=== PATIENT | female | born 1950 | race Caucasian/White ===

== ENCOUNTER 2018-01-15 01:35 | Inpatient (IN) | payer MEDICARE ==
[~2018-01-15] VITALS: Ht 157.5 cm; Wt 90.9 kg
[~2018-01-15 01:35] MED LIST: DALIRESP500 MCG PO; DUONEB INH; GLUCOPHAGE500 MG PO; KLONOPIN0.5 MG PO; KLOR-CON M2020 MEQ PO; LASIX40 MG PO; LEVAQUIN750 MG PO; MEDROL DOSE PACK4 MG PO; SPIRIVA18 MCG INH; VENTOLIN HFA18 GM INH
[2018-01-15 02:56] LABS: BASOPHILS 0.3 % (0-2); EOSINOPHILS 2.8 % (0-7); HEMATOCRIT 36.6 % (36.0-48.0); IMMATURE GRANULOCYTES 0.7 % (0-5); LYMPHOCYTES 13.8 % (15-50); MCH 28.6 pg (26.0-34.0); MCHC 30.1 g/dL (31.0-37.0); MCV 95.3 fL (80.0-100.0); MEAN PLATELET VOLUME 9.3 fL (7.4-10.4); MONOCYTES 6.4 % (2-11); PLATELET COUNT 220 10x3/uL (130-400); RBC 3.84 10x6/uL (4.00-5.40); RDW 14.5 % (11.5-14.5); WBC 10.1 10x3/uL (4.8-10.8)
[2018-01-15 03:30] LABS: ALBUMIN 3.1 g/dL (3.4-5.0); ALKALINE PHOSPHATASE 113 U/L (46-116); ALT (SGPT) 26 U/L (10-68); BILIRUBIN - TOTAL 0.29 mg/dL (0.2-1.3); CHLORIDE - SERUM 99 mmol/L (98-107); CREATININE - SERUM 0.9 mg/dL (0.6-1.3); POTASSIUM - SERUM 3.7 mmol/L (3.5-5.1); PROTEIN - SERUM 7.9 g/dL (6.4-8.2); SODIUM 142 mmol/L (136-145); UREA NITROGEN 14 mg/dL (7-18); eGFR NON AFRICAN AMERICAN 66 mL/min (90-120)
[2018-01-15 03:45] LABS: CALC OSMOLALITY 291 mosm/kg (275-300); GLUCOSE 240 mg/dL (74-106)
[2018-01-15 03:47] LABS: CARBON DIOXIDE 43.8 mmol/L (21.0-32.0); TROPONIN-I < 0.017 ng/mL (0.000-0.060)
[2018-01-15 08:19] VITALS: BP 144/56
[2018-01-15] MEDS ORDERED: ADVAIR HFA [SP]12 GM INH (09:33)
[2018-01-15] MEDS ORDERED: GLUCOTROL ER2.5 MG PO (09:33)
[2018-01-15] MEDS ORDERED: SINGULAIR10 MG PO (09:34)
[2018-01-15] MEDS ORDERED: LEXAPRO10 MG PO (09:34)
[2018-01-15] MEDS ORDERED: ULTRAM50 MG PO (09:35)
[2018-01-15 11:52] VITALS: BP 141/62
[2018-01-15 15:39] VITALS: BP 145/78; Ht 157.5 cm; Wt 90.9 kg
[2018-01-15 15:53] VITALS: BP 125/59
[2018-01-15 16:52] LABS: CKMB 1.1 U/L (0.0-3.6); CREATINE KINASE 215 UL (21-215)
[2018-01-15 16:54] LABS: TROPONIN-I < 0.017 ng/mL (0.000-0.060)
[2018-01-15 20:34] VITALS: BP 140/55
[2018-01-15 22:20] LABS: CKMB 0.9 U/L (0.0-3.6); CREATINE KINASE 200 UL (21-215)
[2018-01-15 22:24] LABS: TROPONIN-I < 0.017 ng/mL (0.000-0.060)
[2018-01-16 01:31] VITALS: BP 146/63
[2018-01-16 05:24] LABS: BASOPHILS 0.2 % (0-2); EOSINOPHILS 0.1 % (0-7); HEMATOCRIT 32.3 % (36.0-48.0); HEMOGLOBIN 10.1 g/dL (12-16); IMMATURE GRANULOCYTES 2.6 % (0-5); LYMPHOCYTES 6.8 % (15-50); MCH 28.3 pg (26.0-34.0); MCHC 31.3 g/dL (31.0-37.0); MCV 90.5 fL (80.0-100.0); MEAN PLATELET VOLUME 11.1 fL (7.4-10.4); MONOCYTES 3.5 % (2-11); NEUTROPHILS 86.8 % (40-80); PLATELET COUNT 160 10x3/uL (130-400); RBC 3.57 10x6/uL (4.00-5.40); RDW 13.9 % (11.5-14.5); WBC 9.6 10x3/uL (4.8-10.8)
[2018-01-16 05:43] VITALS: BP 148/71
[2018-01-16 06:00] LABS: ALKALINE PHOSPHATASE 100 U/L (46-116); ALT (SGPT) 30 U/L (10-68); BILIRUBIN - TOTAL 0.31 mg/dL (0.2-1.3); CALC OSMOLALITY 298 mosm/kg (275-300); CALCIUM 9.5 mg/dL (8.5-10.1); CARBON DIOXIDE 35.7 mmol/L (21.0-32.0); CHLORIDE - SERUM 102 mmol/L (98-107); CKMB 0.5 U/L (0.0-3.6); CREATINE KINASE 204 UL (21-215); GLUCOSE 207 mg/dL (74-106); PROTEIN - SERUM 7.1 g/dL (6.4-8.2); SODIUM 147 mmol/L (136-145); UREA NITROGEN 16 mg/dL (7-18)
[2018-01-16 06:02] LABS: CREATININE - SERUM 0.6 mg/dL (0.6-1.3); POTASSIUM - SERUM 5.3 mmol/L (3.5-5.1); TROPONIN-I < 0.017 ng/mL (0.000-0.060); eGFR NON AFRICAN AMERICAN > 90 mL/min (90-120)
[2018-01-16 10:02] VITALS: BP 157/64
[2018-01-16 16:17] VITALS: BP 162/65
[2018-01-16 22:00] VITALS: BP 161/77
[2018-01-17 02:06] VITALS: BP 122/66
[2018-01-17 06:01] VITALS: BP 152/81
[2018-01-17 06:52] LABS: BASOPHILS 0.1 % (0-2); EOSINOPHILS 0.1 % (0-7); HEMATOCRIT 35.4 % (36.0-48.0); HEMOGLOBIN 10.6 g/dL (12-16); IMMATURE GRANULOCYTES 1.7 % (0-5); LYMPHOCYTES 6.4 % (15-50); MCH 27.9 pg (26.0-34.0); MCHC 29.9 g/dL (31.0-37.0); MCV 93.2 fL (80.0-100.0); MEAN PLATELET VOLUME 9.5 fL (7.4-10.4); MONOCYTES 3.7 % (2-11); PLATELET COUNT 260 10x3/uL (130-400); RDW 14.2 % (11.5-14.5); WBC 13.6 10x3/uL (4.8-10.8)
[2018-01-17 07:14] LABS: ALBUMIN 3.1 g/dL (3.4-5.0); ALKALINE PHOSPHATASE 95 U/L (46-116); ALT (SGPT) 23 U/L (10-68); BILIRUBIN - TOTAL 0.21 mg/dL (0.2-1.3); CALC OSMOLALITY 293 mosm/kg (275-300); CALCIUM 9.3 mg/dL (8.5-10.1); CARBON DIOXIDE 38.1 mmol/L (21.0-32.0); CHLORIDE - SERUM 100 mmol/L (98-107); GLUCOSE 220 mg/dL (74-106); PROTEIN - SERUM 7.5 g/dL (6.4-8.2); SODIUM 143 mmol/L (136-145); UREA NITROGEN 17 mg/dL (7-18)
[2018-01-17 07:24] LABS: CREATININE - SERUM 0.8 mg/dL (0.6-1.3); POTASSIUM - SERUM 3.6 mmol/L (3.5-5.1); eGFR NON AFRICAN AMERICAN 75 mL/min (90-120)
[2018-01-17 08:53] VITALS: BP 171/57
[2018-01-17] MEDS ORDERED: LEVAQUIN750 MG PO (10:43)
[2018-01-17 11:45] VITALS: BP 167/67
== END 2018-01-17 13:13 | disposition home or self-care (01) | DRG 193 ==
LOC: D.ER 01:35 → D.EDHOLD 04:05 → D.MS 04:05 → D.M2 04:05 → D.MS 05:39 → D.M2 09:55
PROVIDERS: Family Medicine
DX: J18.9 Pneumonia, unspecified organism (principal); J96.21 Acute and chronic respiratory failure with hypoxia; J44.0 Chronic obstructive pulmonary disease with (acute) lower respiratory infection; J44.1 Chronic obstructive pulmonary disease with (acute) exacerbation; J98.11 Atelectasis; E11.65 Type 2 diabetes mellitus with hyperglycemia; Z99.81 Dependence on supplemental oxygen; Z87.891 Personal history of nicotine dependence

== ENCOUNTER 2019-04-10 11:26 | Inpatient (IN) | payer MEDICARE, MEDICAID ==
[~2019-04-10] VITALS: Ht 157.5 cm; Wt 71.8 kg
[2019-04-10] VITALS (41 sets, daily range): BP systolic 70–147; BP diastolic 30–66; BMI 37.6
[~2019-04-10 11:26] MED LIST changes: +ADVAIR HFA [SP]12 GM INH; +GLUCOTROL ER2.5 MG PO; +LEXAPRO10 MG PO; +SINGULAIR10 MG PO; +ULTRAM50 MG PO
[2019-04-10 12:33] LABS: BASOPHILS 0.1 % (0-2); EOSINOPHILS 0.5 % (0-7); HEMATOCRIT 35.9 % (36.0-48.0); HEMOGLOBIN 10.7 g/dL (12-16); IMMATURE GRANULOCYTES 0.4 % (0-5); LYMPHOCYTES 6.3 % (15-50); MCH 28.3 pg (26.0-34.0); MCHC 29.8 g/dL (31.0-37.0); MEAN PLATELET VOLUME 10.2 fL (7.4-10.4); MONOCYTES 3.8 % (2-11); NEUTROPHILS 88.9 % (40-80); PLATELET COUNT 221 10x3/uL (130-400); RBC 3.78 10x6/uL (4.00-5.40); RDW 14.3 % (11.5-14.5); WBC 13.5 10x3/uL (4.8-10.8)
[2019-04-10 12:47] LABS: ALKALINE PHOSPHATASE 102 U/L (46-116); ALT (SGPT) 19 U/L (10-68); BILIRUBIN - TOTAL 0.68 mg/dL (0.2-1.3); CHLORIDE - SERUM 94 mmol/L (98-107); CREATININE - SERUM 0.8 mg/dL (0.6-1.3); POTASSIUM - SERUM 4.1 mmol/L (3.5-5.1); PROTEIN - SERUM 7.8 g/dL (6.4-8.2); SODIUM 140 mmol/L (136-145); UREA NITROGEN 14 mg/dL (7-18); eGFR NON AFRICAN AMERICAN 75 mL/min (90-120)
[2019-04-10 12:57] LABS: APTT 30.8 SECONDS (22.8-39.4); INR 1.12 (0.85-1.17); PROTIME 13.9 SECONDS (11.6-15.0)
[2019-04-10 13:03] LABS: CKMB 0.4 U/L (0.0-3.6); CREATINE KINASE 38 UL (21-215); MAGNESIUM - SERUM 1.8 mg/dL (1.8-2.4)
[2019-04-10 13:04] LABS: CALC OSMOLALITY 282 mosm/kg (275-300); GLUCOSE 148 mg/dL (74-106)
[2019-04-10 13:11] LABS: TROPONIN-I 0.073 ng/mL (0.000-0.060)
[2019-04-10 13:12] LABS: CARBON DIOXIDE 45.3 mmol/L (21.0-32.0)
[2019-04-10 14:25] LABS: T4 THYROXIN - FREE 1.06 ng/dL (0.76-1.46); T4 THYROXINE 8.8 ug/dL (4.7-13.3); THYROID STIMULATING HORMONE 1.27 uIU/mL (0.36-3.74)
[2019-04-10 15:23] LABS: CKMB 0.3 U/L (0.0-3.6); CREATINE KINASE 30 UL (21-215)
[2019-04-10 15:24] LABS: TROPONIN-I 0.111 ng/mL (0.000-0.060)
--- NOTE | 2019-04-10 15:33 | NUR ---
1500 PT RECIEVED FROM ER LETHARGIC, ABLE TO ANSWER NAME BUT NO OTHER ORIENTATION QUESTIONS, PT BEGINS SNORING WHILE ANSWERING QUESTIONS AND IS UNABLE TO STAY AWAKE, 5L O2, L AC PIV WITH CARDIZEM 10ML//HR, REDNESS TO BUTTOCK AND PERIAREA, BRIEF REMOVED AND PERICARE DONE, DR MARCELINO NOTIFIED OF ARRIVAL AND LEON INSERTEDX1 ATTEMPT VIA STERILE TECHNIQUE, ORDERRS FOR UA C&S, UDS, AWARE THAT PT IS TOO LETHARGIC TO SAFELY SWALLOW MEDS, PTS BED ALARM ON, CALL LIGHT WITHIN REACH, HR 80S FLUTTER, ALARMS SET ON MONITOR
--- NOTE | 2019-04-10 15:37 | NUR ---
UNABLE TO DO MED REQ AND SUICIDE SCREENING DUE TO LETHARGY
[2019-04-10 15:39] LABS: % SATURATION 8 % (15-55); IRON 25 ug/dl (35-150); TOTAL IRON BIND CAPACITY 301 ug/dl (260-445); UNSAT IRON BIND CAPACITY 276 ug/dl (150-375)
[2019-04-10 15:47] LABS: APPEARANCE CLEAR (CLEAR); BILIRUBIN NEGATIVE (NEGATIVE); COLOR YELLOW (YELLOW); GLUCOSE NEGATIVE (NEGATIVE); KETONE NEGATIVE (NEGATIVE); NITRITE NEGATIVE (NEGATIVE); PROTEIN NEGATIVE (NEGATIVE); SPECIFIC GRAVITY 1.015 (1.005-1.020); UROBILINOGEN NORMAL (NORMAL)
[2019-04-10 15:53] LABS: UDS - AMPHET NEGATIVE QUAL (NEGATIVE); UDS - BARB NEGATIVE QUAL (NEGATIVE); UDS - BENZO NEGATIVE QUAL (NEGATIVE); UDS - COCAINE NEGATIVE QUAL (NEGATIVE); UDS - OPIATE NEGATIVE QUAL (NEGATIVE); UDS - PCP NEGATIVE QUAL (NEGATIVE); UDS - THC NEGATIVE QUAL (NEGATIVE)
--- NOTE | 2019-04-10 17:28 | NUR ---
[address] ESCALERA WHO STATED PT IS USUALLY ALERT AND ORIENTED
--- NOTE | 2019-04-10 17:28 | NUR ---
1699 DR MICHELE HERE STATED THAT WHEN HE SPOKE WITH PT IN ER SHE WAS ORIENTED, PT CONTINUES TO BE LETHARGIC BUT IS ABLE TO FOLLOW COMMANDS WHEN ASKED MULTIPLE TIMES, HAND WASTE BALER AND FOOT MOVEMENT EQUAL BILATERALLY
--- NOTE | 2019-04-10 19:00 | NUR ---
BEDSIDE REPORT AND SHIFT ASSESSMENT COMPLETE. PT NON VERBAL, AWAKENS TO STERNAL RUB. WILL FOLLOW COMMANDS ONCE AWAKE. O2 SAT 98 ON 5L NC. WILL CONTINUE TO MONITOR.
--- NOTE | 2019-04-10 20:25 | NUR ---
SUSAN DELUNA MOBILE HOMES REPAIRER AT BEDSIDE. UPDATE GIVEN. STAT ABG ORDER, RESPIRATORY NOTIFIED.
--- NOTE | 2019-04-10 20:45 | NUR ---
DAUGHTER, LALI, AT BEDSIDE. SHE CLAIMS THE PT HAS NO LIVING WILL OR POA. PT LIVES WITH HER DAUGHTER AND HER EX , THEY ARE HER EMERGENCY CONTACTS. LALI STATES PT IS DNR.
--- NOTE | 2019-04-10 21:15 | NUR ---
DR COBIAN CONSULTED, NEW ORDERS RECEIVED. WILL CONTINUE TO MONITOR.
[2019-04-10 21:52] LABS: CKMB 0.5 U/L (0.0-3.6); CREATINE KINASE 30 UL (21-215)
[2019-04-10 21:57] LABS: TROPONIN-I 0.172 ng/mL (0.000-0.060)
--- NOTE | 2019-04-10 22:30 | NUR ---
B/P 74/37, MAP OF 50. SUSAN DELUNA APN NOTIFIED. ORDERS TO GIVE 500 ML NS BOLUS AND TO LEAVE CARDIZEM DRIP ON.
--- NOTE | 2019-04-10 23:15 | NUR ---
CL AMMONIA LEVEL 88. SUSAN DELUNA APN NOTIFIED.
--- NOTE | 2019-04-10 23:50 | NUR ---
HAND II BLOCKER CALLED FOR MED OVERRIDE.
[2019-04-11] VITALS (94 sets, daily range): BP systolic 74–129; BP diastolic 32–74
--- NOTE | 2019-04-11 01:00 | NUR ---
PT MORE ALERT AND RESPONSIVE THAN EARLIER. WAS ABLE TO TAKE A SIP OF WATER AND DRINK LACTULOSE WITHOUT DIFFICULTIES.
--- NOTE | 2019-04-11 03:00 | NUR ---
REASSESSMENT COMPLETE. PT SLEEPING, EASY TO AROUSE. WILL CONTINUE TO MONITOR.
[2019-04-11 04:05] LABS: BASOPHILS 0.1 % (0-2); EOSINOPHILS 0 % (0-7); HEMATOCRIT 35.2 % (36.0-48.0); HEMOGLOBIN 10.2 g/dL (12-16); IMMATURE GRANULOCYTES 0.6 % (0-5); LYMPHOCYTES 3.1 % (15-50); MCH 27.8 pg (26.0-34.0); MCV 95.9 fL (80.0-100.0); MEAN PLATELET VOLUME 10.4 fL (7.4-10.4); MONOCYTES 2.2 % (2-11); PLATELET COUNT 199 10x3/uL (130-400); RBC 3.67 10x6/uL (4.00-5.40); RDW 14.8 % (11.5-14.5); WBC 14.8 10x3/uL (4.8-10.8)
[2019-04-11 04:22] LABS: CALCIUM 8.7 mg/dL (8.5-10.1)
[2019-04-11 04:25] LABS: ANION GAP 5.2 mmol/L (8-16); CREATININE - SERUM 1.4 mg/dL (0.6-1.3)
[2019-04-11 04:26] LABS: CARBON DIOXIDE 41.8 mmol/L (21.0-32.0)
--- NOTE | 2019-04-11 05:00 | NUR ---
CHG BATH AND LINEN CHANGE COMPLETE.
--- NOTE | 2019-04-11 11:10 | EC ---
PATIENT:DELLA BRISENO DATE OF SERVICE: 04/10/19 SEX: F MEDICAL RECORD: [id number] DATE OF : [birth year] LOCATION:[place] [address] AGE OF PATIENT: 68 ADMISSION DATE: 04/10/19 REFERRING PHYSICIAN: INTERPRETING PHYSICIAN: MÓNICA THRASHER MD ECHOCARDIOGRAM REPORT ECHO CHARGES 4 ECHO COMPLETE Date: 04/10/19 CLINICAL DIAGNOSIS: PALPITATIONS, CP ECHOCARDIOGRAPHIC MEASUREMENTS (adult normal given) AC root (d.<3.7cm) cm LV Septum d (<1.2 cm> 0.7 cm Valve Excursion cm LV Septum (systole) 0.8 cm Left Atria (s.<4.0cm> 3.8 cm LVPW d(<1.2cm) 0.7 cm RV (d.<2.3cm) 3.0 cm LVPW (sytole) 1.1 cm LV diastole(<5.6CM) 3.8 cm MV E-F(>70mm/sec) cm LV systole 2.8 cm LVOT Diameter 1.7 cm MV exc.(>10mm) cm Est.ejection fraction (50-75%) % DOPPLER: LVIT cm/sec A cm/sec E 102 cm/sec LA cm/sec RVSP 41.8 mmHg LVOT 138 cm/sec AOP1/2T m/s Asc. Ao 149 cm/sec RVOT cm/sec RA cm/sec PA cm/sec AV Gradient Peak 8.9 mmHg AV Mean 4.8 mmHg AV Area 2.9 cm MV Gradient Peak 7.5 mmHg MV Mean 4.3 mmHg MV Area cm COMMENTS: Body Designer: Patricia [facility] Riveting Machine Operator Automatic: 1 Dr. Thrasher TAPE# PACS Pericardial Effusion N DATE OF SERVICE: FINDINGS: 1. Left ventricular chamber size is within normal limits. Left ventricular systolic function is normal. Overall ejection fraction estimated at 55%. 2. Left atrium, right atrium, and right ventricular chamber sizes are within normal limits. 3. Valvular structures have normal structure and motion. 4. Doppler interrogation reveals trace tricuspid regurgitation, no other valvular insufficiency or stenosis. Pulmonary systolic pressure is estimated 41 ECHOCARDIOGRAM REPORT [id number] DELLA BRISENO mmHg. 5. No evidence of pericardial effusion or left ventricular thrombus. TRANSINT:[id number] Voice Confirmation ID: [id number] DOCUMENT ID: [id number] MÓNICA THRASHER MD at 1110 CC: [id number] DICTATION DATE: 04/10/19 1635 SHOE TREER: 04/10/19 2100 ADM IN [place] [id number] [place] [id number]
--- NOTE | 2019-04-11 11:10 | CN ---
PATIENT NAME:DELLA BRISENO MEDICAL RECORD: [id number] : 48 LOCATION:[facility] ADMIT DATE: 04/10/19 ACCOUNT: [id number] CONSULTING PHYSICIAN: MÓNICA MICHELE MD REFERRING PHYSICIAN: AC MARCELINO MD DATE OF CONSULTATION: 04/10/2019 DIAGNOSES: 1. Palpitations. 2. Chest pain. 3. Shortness of breath, dyspnea on exertion. 4. Chronic obstructive pulmonary disease. 5. Bronchitis. HISTORY OF PRESENT ILLNESS: Mrs. Briseno has no cardiac history. She complained of sudden onset of palpitations and tachycardia, was found to be in atrial flutter with heart rates in the 170 to 180 range. She was initially given adenosine with no resolve of the dysrhythmia. She was given a Cardizem bolus, which dropped her heart rate into the 80s and 90s and made it apparent that this was atrial flutter. She did not have chest pain with the episode today. She has been having episodes of chest pain for approximately a month. These chest pains are compatible with angina. She has no history of ischemic heart disease and has not undergone workup for this. PHYSICAL EXAMINATION: CONSTITUTIONAL/GENERAL APPEARANCE: Well nourished, well developed, appears stated age. EYES: Lids and conjunctivae noninjected. No discharge. No pallor. ENT: Lips within normal limit. No cyanosis. No pallor. NECK: Carotid arteries, bilateral normal upstroke. No bruits. No thrills. No jugular venous pressure or distention. CERVICAL LYMPH NODES: Nontender. Nonenlarged. THYROID: Not enlarged. No nodules. CARDIOVASCULAR: Precordial exam, nondisplaced. No heaves or pericardial thrills. Rate and rhythm, regular. Heart sounds, normal S1, normal S2. No S3, no gallop, no rub. Systolic murmur, not heard. Diastolic murmur, not heard. RESPIRATORY: Respiratory effort, unlabored. Normal curvature. No thoracic deformity. No chest wall tenderness. Percussion, resonant. Auscultation, clear. No wheezes, no rales, no rhonchi. ABDOMEN: Soft, nondistended, nontender. No abdominal pain, no vomiting and normal appetite. MUSCULOSKELETAL: No joint tenderness, normal gait, normal tone. SKIN: Warm and dry. OVERALL IMPRESSION: New-onset atrial flutter, on Cardizem drip at this time. We will start her on Rythmol 300 mg b.i.d. Hopefully, this will convert her to sinus rhythm. We will do a chest pain workup based on troponins and EKG changes and get an echocardiogram. TRANSINT:[id number] Voice Confirmation ID: [id number] DOCUMENT ID: [id number] CONSULT REPORT [id number] DELLA BRISENO, MÓNICA POE at 1110 CC: [id number] DICTATION DATE: 04/10/19 1221 CASHIERS BUSSERS FOOD RUNNERS: 04/10/19 1236 ADM IN [place] [id number] [place] [id number]
--- NOTE | 2019-04-11 12:30 | NUR ---
0700 IN BED WEARING BPAP AT 60% O2 PHYSICAL TOUCH TO AROUSE FOLLOWS COMMANDS WEAKNESS NOTED DOES NOT SPEAK CARDIZEM INFUSING AT 10MG TO LEFT AC SITE SATISFACTORY PLACED SCDS ON GRICELDA. ASSESSMENT COMPLETE LUNGS CTA DIMINSHED BIBASULAR
--- NOTE | 2019-04-11 12:37 | NUR ---
0900 FAMILY MEMBERS AT BEDSIDE UPDATE PROVIDED PATIENT SPEEKING COHERRENTLY DNR PAPERS SIGNED BY DR COBIAN AND PLACED ON CHART
--- NOTE | 2019-04-11 12:40 | NUR ---
1100 STOPPED CARDIZEM INFUSION PER DR MICHELE ORDERS HELD LASIX, K+, CLONAZEPAM INSTRUCTED BY RYNE
--- NOTE | 2019-04-11 13:02 | NUR ---
1100 DR MANGO LUIS DRAWN
--- NOTE | 2019-04-11 13:02 | NUR ---
1230 RT PLACED ON 6L/NC INSTRUCTED BY DR COBIAN
--- NOTE | 2019-04-11 13:15 | NUR ---
1313 PLACED BACK ON BPAP AT 60% O2
--- NOTE | 2019-04-11 16:20 | NUR ---
1331 PATIENT HAD PULLED BP CUFF
--- NOTE | 2019-04-11 16:21 | NUR ---
1400 REPLACED BP CUFF NOTIFIED DR MICHELE OF HYPOTENSION ORDER FOR DOPAMINE
--- NOTE | 2019-04-11 16:22 | NUR ---
1402 DOPAMINE STARTED AT 2MCG/KG/MIN INCREASED BY 1 MCK EVERY 15 MIN MAX OF 5MCG/KG/MIN
--- NOTE | 2019-04-11 16:24 | NUR ---
1330 HEART RATE 140 AFLUTTER STOPPED DOPAMINE CALLED DR MICHELE INITIATED 500ML NS BOLUS NEW ORDER TO LEVAPHED TITRATE ABDOMINAL ULTRA SOUND COMPLETE
--- NOTE | 2019-04-11 16:47 | NUR ---
1650 BP 92/39 STARTED LEVOPHED AT 5MCG/MIN
--- NOTE | 2019-04-11 18:12 | NUR ---
1800 CONT TO TITRATE AND DOCUMENT LEVOPHED INFUSION
--- NOTE | 2019-04-11 19:00 | NUR ---
BEDSIDE REPORT AND SHIFT ASSESSMENT COMPLETE. O2 SAT 96 ON BIPAP 60% PT ALERT AND ORIENTED, REQUESTING SOMETHING TO EAT. VSS, NO SIGNS OF ACUTE DISTRESS NOTED. WILL CONTINUE TO MONITOR.
--- NOTE | 2019-04-11 21:00 | NUR ---
SPOKE WITH SUSAN DELUNA APN. HE OK'D GIVING PT MEDS PER MAR. B/P LOW, WILL TITRATE LEVOPHED PER ORDERS. PT TOLERATED MEDS. WILL CONTINUE TO MONITOR.
--- NOTE | 2019-04-11 23:00 | NUR ---
REASSESSMENT COMPLETE. PT GAVE ME DENTURES, I PUT THEM IN A CUP AND THEY ARE ON THE COUNTER IN HER ROOM. WILL CONTINUE TO MONITOR.
[2019-04-12] VITALS (61 sets, daily range): BP systolic 78–139; BP diastolic 34–78; Ht 157.5 cm; Wt 71.8 kg
--- NOTE | 2019-04-12 01:00 | NUR ---
PT SLEEPING. LEVOPHED TITRATED PER ORDERS. VSS, NO SIGNS OF ACUTE DISTRESS NOTED. WILL CONTINUE TO MONITOR.
--- NOTE | 2019-04-12 03:00 | NUR ---
REASSESSMENT COMPLETE. PT RESTING QUIETLY, DENIES NEEDS AT THIS TIME. WILL CONTINUE TO MONITOR.
--- NOTE | 2019-04-12 03:15 | NUR ---
PT CONVERTED TO NSR, RATE OF 49.
[2019-04-12 04:21] LABS: BASOPHILS 0 % (0-2); EOSINOPHILS 0 % (0-7); HEMATOCRIT 32.3 % (36.0-48.0); HEMOGLOBIN 9.8 g/dL (12-16); IMMATURE GRANULOCYTES 0.5 % (0-5); LYMPHOCYTES 5.4 % (15-50); MCH 27.9 pg (26.0-34.0); MCHC 30.3 g/dL (31.0-37.0); MEAN PLATELET VOLUME 10.2 fL (7.4-10.4); MONOCYTES 5.1 % (2-11); RBC 3.51 10x6/uL (4.00-5.40); RDW 14.3 % (11.5-14.5); WBC 15.4 10x3/uL (4.8-10.8)
[2019-04-12 04:29] LABS: PLATELET COUNT 370 10x3/uL (130-400)
[2019-04-12 04:49] LABS: ALBUMIN 2.6 g/dL (3.4-5.0); ANION GAP 9.5 mmol/L (8-16); BILIRUBIN - TOTAL 0.59 mg/dL (0.2-1.3); CARBON DIOXIDE 36.3 mmol/L (21.0-32.0); MAGNESIUM - SERUM 1.8 mg/dL (1.8-2.4); PHOSPHOROUS 3.7 mg/dL (2.5-4.9); POTASSIUM - SERUM 4.8 mmol/L (3.5-5.1); PROTEIN - SERUM 6.8 g/dL (6.4-8.2)
[2019-04-12 04:51] LABS: CREATININE - SERUM 1.8 mg/dL (0.6-1.3)
--- NOTE | 2019-04-12 05:00 | NUR ---
CHG BATH AND LINEN CHANGE COMPLETE. VSS, NO SIGNS OF ACUTE DISTRESS NOTED. PT DENIES NEEDS AT THIS TIME.
--- NOTE | 2019-04-12 07:00 | NUR ---
REC'D REPORT AND RESUMED CARE, SLEEPING WITH BIPAP ON, AROUSED TO VERBAL STIMULI, VSS, ORIENTED X4, ASSESSMENT COMPLETED PER FLOWSHEET, FOLLOWS DIRECTIONS, REPOSITIONED UP AND TO BACK WITH HEELS FLOATED, CALL LIGHT IN REACH, NO NEEDS AT THIS TIME
--- NOTE | 2019-04-12 08:30 | NUR ---
BIPAP OFF, MORNING MEDS INTITIATED, TOLERATED WITHOUT DIFFICULTY, O2 VIA HUMIDIFIED O2 AT 6L, SAT 94%
--- NOTE | 2019-04-12 11:18 | MORECARE ---
CASE MANAGEMENT DISCHARGE SUMMARY PATIENT: DELLA BRISENO UNIT: [id number] ADM DATE: 04/10/19 AGE: 68 : 49 SEX: F ROOM/BED: [facility] AUTHOR: ZARIA WHITTEN PHYSICIAN: REFERRING PHYSICIAN: AC MARCELINO MD DATE OF SERVICE: 04/12/19 Discharge Plan Patient Name: DELLA BRISENO Facility: [facility]:[place] : 1950 Planned Disposition: Home Anticipated Discharge Date: Discharge Date: Expected LOS: Initial Reviewer: [email or web address] Initial Review Date: 04/12/2019 Generated: 04/12/19 12:17 pm Comments DCP- Discharge Planning Updated by [email or web address]: Nora Berrios on 04/11/19 5:[address] CM wasn't able to speak to patient regarding discharge planning d/t her having to wear BiPAP continuously. No family available. CM will continue to follow and assist as needed with discharge planning / needs. Patient Name: DELLA BRISENO Page [phone] at 1118 All edits/amendments must be made on the electronic document DICTATION DATE: 04/12/191116 CLINICAL PSYCHIATRIST: MARCOS 04/12/191116 RPT#: [id number] DC DATE: STATUS: ADM IN [facility] [address] [place] [address] END OF REPORT
--- NOTE | 2019-04-12 11:25 | MORECARE ---
CASE MANAGEMENT DISCHARGE SUMMARY PATIENT: DELLA BRISENO UNIT: [id number] ADM DATE: 04/10/19 AGE: 68 : 49 SEX: F ROOM[facility]BED: [facility] AUTHOR: ZARIA WHITTEN PHYSICIAN: REFERRING PHYSICIAN: AC MARCELINO MD DATE OF SERVICE: 04/12/19 Discharge Plan Patient Name: DELLA BRISENO Facility: [facility]:[place] : 1950 Planned Disposition: Home Anticipated Discharge Date: Discharge Date: Expected LOS: Initial Reviewer: [email or web address] Initial Review Date: 04/12/2019 Generated: 04/12/19 12:25 pm Comments DCP- Discharge Planning Updated by [email or web address]: Nora Berrios on 04/11/19 5:[address] CM wasn't able to speak to patient regarding discharge planning d/t her having to wear BiPAP continuously. No family available. CM will continue to follow and assist as needed with discharge planning / needs. DCPIA - Discharge Planning Initial Assessment Updated by [email or web address]: Nora Berrios on 04/12/19 11:20 am * Is the patient Alert and Oriented? Yes * How many steps to enter\exit or inside your home? * PCP CECILIA RICO HAS BEEN SEEING HOUSE CALLS FOR THE LAST SEVERAL YEARS NOT GOING TO CLINIC * [facility] [address] * Preadmission Environment Home with Family * ADLs Total Dependent * Other Equipment HOME / PORTABLE 02, NEBULIZER, 02 MONITOR, GLUCOMETER, HOSPITAL BED PENDING * List name and contact numbers for known caregivers / representatives who currently or will assist patient after discharge: LAIL BRISENO - DAUGHTER- [phone] * Verbal permission to speak to the caregivers and representatives has been obtained from the patient. Yes * Please name any agencies selected above. HOUSE CALLS, [employer] [facility] * Additional services required to return to the preadmission environment? No * Can the patient safely return to the preadmission environment? Yes * Has this patient been hospitalized within the prior 30 days at any hospital? No Last DP export: 04/12/19 10:18 a Patient Name: DELLA BRISENO Page 61068 at 1125 All edits/amendments must be made on the electronic document DICTATION DATE: 04/12/191124 FIELD AUTO APPRAISER: MARCOS 04/12/19 112 RPT#: [id number] DC DATE: STATUS: ADM IN [facility] [address] [place] [address] END OF REPORT
--- NOTE | 2019-04-12 11:40 | NUR ---
CALLED TO ROOM, BEDPAN PLACED PER REQUEST, FSBS, 210 8 UNITS REG INS GIVEN, DR MARCELINO HERE FOR EVAL
--- NOTE | 2019-04-12 11:57 | MORECARE ---
CASE MANAGEMENT DISCHARGE SUMMARY PATIENT: DELLA BRISENO UNIT: [id number] ADM DATE: 04/10/19 AGE: 68 : 49 SEX: F ROOM/BED: D.01 AUTHOR: ZARIA WHITTEN PHYSICIAN: REFERRING PHYSICIAN: AC MARCELINO MD DATE OF SERVICE: 04/12/19 Discharge Plan Patient Name: DELLA BRISENO Facility: [facility]:[place] : 1950 Planned Disposition: Home Anticipated Discharge Date: Discharge Date: Expected LOS: Initial Reviewer: [email or web address] Initial Review Date: 04/12/2019 Generated: 04/12/19 12:57 pm Comments DCP- Discharge Planning Updated by [email or web address]: Nora Berrios on 04/12/19 10:[address] Patient Name: DELLA BRISENO Admission Status: ER Accout number: [id number] Admission Date: 04-10-2019 : 1950 Admission Diagnosis: Attending: AC MARCELINO Current LOS: 2 Anticipated DC Date: Planned Disposition: Home Primary Insurance: [facility] [employer] Discharge Planning Comments: CM met with patient to complete initial dc planning assessment. CM educated patient on the CM role and verbal consent given by patient to complete assessment. Patient lives at home with her , daughter and family where she is for the most part total care. Daughter Lali states that patient at times could use walker with assist to go to restroom but would need to rest and catch her breath. At discharge patient plans to return home and feels this is a safe discharge. CM gave Lali information on some resources to help within the home. Lali stated that her father has just started having radiation treatments and she is having a difficult time taking care of both of them. CM discussed availability of home health, rehab services, and medical equipment. Lali also stated that they are suppose to be getting a hospital bed d/t her mother sliding out of the bed at home. Family will transport home. Patient has a nebulizer and home o2 ( [facility] patient ) Patient denied known discharge needs at this time. CM will continue to follow and will assist as needed with dc plans/needs. Truck Farmer: Nora Agustina DCP- Discharge Planning Updated by [email or web address]: Nora Berrios on 04/11/19 5:[address] CM wasn't able to speak to patient regarding discharge planning d/t her having to wear BiPAP continuously. No family available. CM will continue to follow and assist as needed with discharge planning / needs. DCPIA - Discharge Planning Initial Assessment Updated by [email or web address]: Nora Berrios on 04/12/19 11:20 am * Is the patient Alert and Oriented? Yes * How many steps to enter\exit or inside your home? * PCP CECILIA RICO HAS BEEN SEEING HOUSE CALLS FOR THE LAST SEVERAL YEARS NOT GOING TO CLINIC * [facility] [address] * Preadmission Environment Home with Family * ADLs Total Dependent * Other Equipment HOME / PORTABLE 02, NEBULIZER, 02 MONITOR, GLUCOMETER, HOSPITAL BED PENDING * List name and contact numbers for known caregivers / representatives who currently or will assist patient after discharge: LALI BRISENO - DAUGHTER- [phone] * Verbal permission to speak to the caregivers and representatives has been obtained from the patient. Yes * Please name any agencies selected above. HOUSE CALLS, [employer] * Additional services required to return to the preadmission environment? No * Can the patient safely return to the preadmission environment? Yes * Has this patient been hospitalized within the prior 30 days at any hospital? No Last DP export: 04/12/19 10:26 a Patient Name: DELLA BRISENO Page [phone] at 1157 All edits/amendments must be made on the electronic document DICTATION DATE: 04/12/19 1157 FULFILLMENT SPECIALIST: MARCOS 04/12/19 1157 RPT#: [id number] DC DATE: STATUS: ADM IN [facility] [address] [place] [address] END OF REPORT
--- NOTE | 2019-04-12 11:59 | NUR ---
DR COBIAN HERE FOR EVAL
--- NOTE | 2019-04-12 12:05 | NUR ---
LUNCH TRAY TO BEDSIIDE, INDEPENDENT WITH SET UP AND EATING/DRINKING
--- NOTE | 2019-04-12 16:05 | NUR ---
CALLED TO ROOM, REPOSITIONED UP AND TO BACK, BEDPAN PLACED, HOB UP, FAMILY AT BEDSIDE, CALL LIGHT IN REACH, NO OTHER NEEDS AT THIS TIME
--- NOTE | 2019-04-12 17:42 | NUR ---
RESTING IN BED WATCHING TV, VSS, CALL LIGHT IN REACH, NO NEEDS AT THIS TIME
--- NOTE | 2019-04-12 19:00 | NUR ---
BEDSIDE REPORT AND SHIFT ASSESSMENT COMPLETE. VSS, NO SIGNS OF ACUTE DISTRESS NOTED. O2 SAT 97 ON 3L NC. LEVOPHED @ 4 MCG, WILL TITRATE ACCORDING TO ORDERS. PT REQUESTING TO GET OOB, I INFORMED HER THAT PHYSICAL THERAPY SHOULD COME SEE HER TOMORROW. DENIES ANY NEEDS AT THIS TIME. WILL CONTINUE TO MONITOR.
--- NOTE | 2019-04-12 21:00 | NUR ---
FSBS 110. MEDS GIVEN PER MAR. PT REQUESTING TO SLEEP, WILL CONTINUE TO MONITOR.
--- NOTE | 2019-04-12 23:00 | NUR ---
R HAND PIV INFILATRATED AND D/C'D. REASSESSMENT COMPLETE, SEE FLOWSHEET. MEDS GIVEN PER MAR. WILL CONTINUE TO MONITOR.
[2019-04-13] VITALS (52 sets, daily range): BP systolic 86–145; BP diastolic 36–83
--- NOTE | 2019-04-13 01:00 | NUR ---
PT SLEEPING. VSS, NO SIGNS OF ACUTE DISTRESS NOTED. WILL CONTINUE TO MONITOR.
--- NOTE | 2019-04-13 03:00 | NUR ---
REASSESSMENT COMPLETE. VSS, NO SIGNS OF ACUTE DISTRESS NOTED. WILL CONTINUE TO MONITOR.
[2019-04-13 04:36] LABS: BASOPHILS 0 % (0-2); EOSINOPHILS 0 % (0-7); HEMATOCRIT 30.1 % (36.0-48.0); HEMOGLOBIN 9.2 g/dL (12-16); IMMATURE GRANULOCYTES 0.4 % (0-5); LYMPHOCYTES 6.5 % (15-50); MCH 27.4 pg (26.0-34.0); MCHC 30.6 g/dL (31.0-37.0); MEAN PLATELET VOLUME 10.3 fL (7.4-10.4); MONOCYTES 3.7 % (2-11); NEUTROPHILS 89.4 % (40-80); PLATELET COUNT 318 10x3/uL (130-400); RBC 3.36 10x6/uL (4.00-5.40); RDW 14.3 % (11.5-14.5); WBC 15.2 10x3/uL (4.8-10.8)
[2019-04-13 04:42] LABS: MCV 89.6 fL (80.0-100.0)
--- NOTE | 2019-04-13 05:00 | NUR ---
CHG BATH AND LINEN CHANGE COMPLETE. MEDS GIVEN PER MAR. WILL CONTINUE TO MONITOR.
[2019-04-13 05:03] LABS: ALBUMIN 2.6 g/dL (3.4-5.0); ANION GAP 9.5 mmol/L (8-16); BILIRUBIN - TOTAL 0.32 mg/dL (0.2-1.3); CALCIUM 8.9 mg/dL (8.5-10.1); CARBON DIOXIDE 32.5 mmol/L (21.0-32.0); CREATININE - SERUM 2.1 mg/dL (0.6-1.3); MAGNESIUM - SERUM 1.8 mg/dL (1.8-2.4); PHOSPHOROUS 3.8 mg/dL (2.5-4.9); PROTEIN - SERUM 6.3 g/dL (6.4-8.2)
[2019-04-13 05:06] LABS: TROPONIN-I 0.07 ng/mL (0.000-0.060)
--- NOTE | 2019-04-13 07:00 | NUR ---
RECEIVED BEDSIDE REPORT ON PATIENT AND ASSUMED CARE. PATIENT RESTING QUIELTY, EASILY AROUSED BY VOICE, ALERT AND ORIENTED X 4. HR - 46, SB ON CM. ON BIPAP 16/6 FIO2 - 40%, SPO2 - 94%. LEVPHED AT 2 MCG/MIN (3.8 CC/HR) AND NS AT 100 CC/HR INFUSING TO IV LEFT AC WITH NO S/S OF INFILTRATION. BBS - CLEAR AND EQUAL, DIMINISHED. SCDS ON. HEAD TO TOE ASSESSMENT COMPLETED.
--- NOTE | 2019-04-13 07:46 | NUR ---
BP 139/52 (68), LEVOPHED GTT DECREASED TO 1 MCG/MIN (1.9 CC/HR).
--- NOTE | 2019-04-13 08:31 | NUR ---
BP 122/43 (82) LEVOPHED GTT SHUT OFF.
--- NOTE | 2019-04-13 09:08 | NUR ---
PATIENT REPOSITIONED IN BED, PLACED ON NC AT 4 LPM VIA NC FOR MORNING MEDS AND BREAKFAST. PATIENT NOT HUNGRY ATE ONLY APPROXIMATELY 20% OF BREAKFAST. PLACED BACK ON BIPAP. RESTING QUIETLY, VSS.
--- NOTE | 2019-04-13 10:19 | NUR ---
PATIENT UP TO BEDSIDE COMMODE WITH RN AND PT ASSIST. HAS SMALL BM LOOSE BROWN, THEN TO BEDSIDE CHAIR. PATIENT ON NC AT 4 LPM O2 WITH SPO2 - 95%. CALL LIGHT IN REACH AND WATCHING TV.
--- NOTE | 2019-04-13 10:44 | NUR ---
DR. COBIAN AT ROOM UPDATED AND EXAMINES PATIENT. TO KEEP PATIENT IN ICU TODAY, MAY LOOK TO MOVE OUT TOMORROW. DECREASE NS GTT TO 75 CC/HR.
--- NOTE | 2019-04-13 11:05 | NUR ---
REASSESSMENT COMPLETE. PATIENT WATCHING TV, UP IN BEDSIDE CHAIR. VSS. WILL CONTINUE TO MONITOR.
--- NOTE | 2019-04-13 11:45 | NUR ---
SPOKE TO RUCHI ROMO WITH DR. MICHELE'S OFFICE CONCERNING PATIENTS SOTALOL 120 MG AND PATIENT BEING BRADYCARDIC IN THE 40S-50S. STATED HELD MORNING DOSE DUE TO BRADYCARDIA. ADVISED TO HOLD SOTALOL FOR NOW AND WILL ADVISE DR. MICHELE TO FOLLOW UP ON MED.
--- NOTE | 2019-04-13 11:50 | NUR ---
DR. MARCELINO AT ROOM UDPATED AND EXAMINES PATIENT.
--- NOTE | 2019-04-13 12:09 | NUR ---
PATIENT STATES NOT MUCH APPETITE, ONLY CONSUMED 10% OF LUNCH. TO BEDSIDE COMMODE WITH ASSIST X 2, SMALL LOOSE BM AND BACK TO BEDSIDE CHAIR. VSS.
--- NOTE | 2019-04-13 12:39 | NUR ---
LEVOPHED RESTARTED AT 4 MCG/MIN (7.5 CC/HR) PATIENTS BP 86/57 (56).
--- NOTE | 2019-04-13 12:49 | NUR ---
BP 127/64 (70) LEVOPHED GTT DECREASED TO 3 MCG/MIN (5.6 CC/HR)
--- NOTE | 2019-04-13 13:13 | NUR ---
PATIENT BACK TO BED PER WITH REQUEST WITH ASSIST OF RN AND PT.
--- NOTE | 2019-04-13 14:38 | NUR ---
BP 121/54 (77) LEVOPHED GTT DECREASED TO 1 MCG/MIN (1.9 CC/HR)
--- NOTE | 2019-04-13 15:03 | NUR ---
REASSESSMENT COMPLETE. VSS. BP 127/50 (62) LEVOPHED GTT SHUT OFF. PATIENT RESTING QUIETLY, EASILY AROUSED TO VOICE. ALERT AND ORIENTED X 4. NO NEEDS AT THIS TIME.
--- NOTE | 2019-04-13 17:13 | NUR ---
PATIENT RESTING QUIETLY, EASILY AROUSED BY VOICE. VSS. REPOSITIONED IN BED. STATES NOT HUNGRY WHEN OFFERED DINNER TRAY.
--- NOTE | 2019-04-13 17:21 | NUR ---
PATIENT ATE 100% OF DINNER, ASSISTED BACK TO BED FROM BEDSIDE CHAIR.
--- NOTE | 2019-04-13 19:00 | NUR ---
REPORT RECIEVED, PT AAOX4, LAYING IN BED. HR IN 40's-50's, NO SIGNS OF ACUTE DISTRESS. PIV IN LEFT AC, SEE IV FLOWSHEET. ASSESSMENT COMPLETED. SCD'S IN PLACE, LEON IN PLACE, NO NEEDS AT THIS TIME. WILL CONTINUE TO MONITOR.
--- NOTE | 2019-04-13 21:15 | NUR ---
PT RESTING IN BED, REQUESTING A CUP OF SOUP. PM MEDS GIVEN, TOLERATED WELL WITH SIPS OF WATER. WILL CONTINUE TO MONITOR.
--- NOTE | 2019-04-13 23:03 | NUR ---
COMPLETE LINEN CHANGE, CHG BATH GIVEN, PT RESTING IN BED, NO SIGNS OF ACUTE DISTRESS. WILL CONTINUE TO MONITOR.
[2019-04-14] VITALS (17 sets, daily range): BP systolic 97–155; BP diastolic 32–85
--- NOTE | 2019-04-14 01:00 | NUR ---
BIPAP IN PLACE, PT RESTING IN BED, VITALS STABLE, WILL CONTINUE TO MONITOR.
--- NOTE | 2019-04-14 03:19 | NUR ---
PT RESTING IN BED, VITALS STABLE, NO SIGNS OF ACUTE DISTRESS.
--- NOTE | 2019-04-14 05:00 | NUR ---
PT SITTING UP IN BED, AAOX4, NO ACUTE DISTRESS NOTED. VITALS STABLE, WILL CONTINUE TO MONITOR.
--- NOTE | 2019-04-14 07:00 | NUR ---
RECEIVED BEDSIDE REPORT ON PATIENT, PATIENT SITTING UP IN BEDSIDE CHAIR, ALERT AND ORIENTED X 4. VSS. HEAD TO TOE ASSESSMENT COMPLETED. IV INFUSING TO LEFT AC 20 GA IV WITH NO S/S OF INFILTRATION, NS AT 75 CC/HR.
[2019-04-14 07:58] LABS: BASOPHILS 0 % (0-2); EOSINOPHILS 0 % (0-7); HEMATOCRIT 32.2 % (36.0-48.0); HEMOGLOBIN 9.8 g/dL (12-16); IMMATURE GRANULOCYTES 0.3 % (0-5); LYMPHOCYTES 5.8 % (15-50); MCHC 30.4 g/dL (31.0-37.0); MEAN PLATELET VOLUME 10.6 fL (7.4-10.4); MONOCYTES 5.2 % (2-11); NEUTROPHILS 88.7 % (40-80); RDW 14.3 % (11.5-14.5)
[2019-04-14 08:00] LABS: PLATELET COUNT 221 10x3/uL (130-400); WBC 10.8 10x3/uL (4.8-10.8)
--- NOTE | 2019-04-14 08:10 | NUR ---
PATIENT UP TO BEDSIDE COMMODE, SMALL SOFT BROWN BM, CLEANED AND BACK TO BEDSIDE CHIAR. VSS. PATIENT GIVEN AND SET UP BREAKFAST TRAY.
[2019-04-14 08:19] LABS: ANION GAP 16.2 mmol/L (8-16); CALCIUM 9.1 mg/dL (8.5-10.1); CARBON DIOXIDE 27.8 mmol/L (21.0-32.0); CREATININE - SERUM 1.6 mg/dL (0.6-1.3); MAGNESIUM - SERUM 1.9 mg/dL (1.8-2.4); PHOSPHOROUS 4.3 mg/dL (2.5-4.9)
--- NOTE | 2019-04-14 09:00 | NUR ---
PATIENT RESTING QUIETLY, VSS, IN BEDSIDE CHAIR. NO NEEDS AT THIS TIME.
--- NOTE | 2019-04-14 10:06 | NUR ---
Nutrition Follow-up: Pt reports tolerating clear liquids but not eating very much. Expressed interest in advancing diet. Noted nursing message from Dr. Mascorro yesterday to advance to ADA as tolerated. Diet: Clear Liquid Wt: 218# Last BM: 04/14 Labs reviewed Meds reviewed Rec ADAT. [place] food preferences within diet restrictions. RD following.
--- NOTE | 2019-04-14 11:00 | NUR ---
REASSESSMENT COMPELTE. VSS. GIVEN LUNCH TRAY.
--- NOTE | 2019-04-14 12:20 | NUR ---
IV TO LEFT AC INFILTRATED. DISCONTINUED. SPOKE TO DR. COBIAN ORDER PLACED FOR MIDLINE TO BE INSERTED BY VASCULAR NURSE. PATIENT DIFFICULT STICK PERIPHERAL IV ATTEMPTED X 3 WITH NO SUCCESS.
--- NOTE | 2019-04-14 12:45 | NUR ---
PATIENT UP TO BEDSIDE COMMODE, SMALL BM, BACK TO CHAIR. VSS. ATE APPROXIMATELY 10% OF LUNCH.
--- NOTE | 2019-04-14 13:29 | NUR ---
SPOKE TO VASCULAR ACCESS NURSE [id number] VICENTE RN TO ADVISE OF ORDER PLACED FOR MIDLINE.
--- NOTE | 2019-04-14 13:45 | NUR ---
PATIENT PLACED ON BIPAP FOR NAP.
--- NOTE | 2019-04-14 14:11 | NUR ---
PATIENT BACK TO BED WITH ASSISTANCE OF PT. PLACED BACK ON NC AT 5 LPM.
--- NOTE | 2019-04-14 15:00 | NUR ---
CALLED REPORT TO DAREN ROMO ON MED 2, TO TRANSFER ROOM TO [id number] VIA BED AND PORTABLE O2.
--- NOTE | 2019-04-14 15:40 | NUR ---
RECEIVED PT FROM [facility]. PT IS AAO AND BEDFAST. CALL LIGHT W/I REACH. RR EVEN AND UNLABORED ON 5L 02. VICENTE ROMO CURRENTLY IN ROOM PLACING MIDLINE. TELEMETRY APPLIED TO PATIENT. QUICKSTART COMPLETE. LEON IN PLACE AND DRAINING URINE. WILL CTM.
--- NOTE | 2019-04-14 21:00 | NUR ---
EVENING ROUNDS COMPLETED. VSS, AAOX3, NO S/S OF DISTRESS. BIPAP MACHINE AT BEDSIDE QHS. FSBS 107, NO INSULIN GIVEN PER SLIDING SCALE. NS STARTED @ 75MLS/HR PER PROVIDERS ORDER. PIV INTACT. DENTURES IN CUP AT BEDSIDE. WILL CPOC. CL WITHIN REACH, BED IN LOW, SR UP X2.
--- NOTE | 2019-04-15 02:57 | NUR ---
NOTIFIED BY RT THAT PTS O2 WAS PLACED ON 5 LITERS VIA NC, DUE TO PTS SATS BEING 88%.
--- NOTE | 2019-04-15 03:29 | NUR ---
RESTING WITH EYES CLOSED, RESPERATIONS EVEN, NO S/S DISTRESS NOTED.
[2019-04-15 04:00] VITALS: BP 131/52
--- NOTE | 2019-04-15 07:11 | NUR ---
REPORT RECEIVED. WILL CONTINUE WITH POC. PT CURRENTLY LYING SEMI FOWLERS. CALL LIGHT W/I REACH. RR EVEN AND UNLABORED ON 5L 02. NS INFUSING @75ML/HR VIA L.ARM MIDLINE. PT DENIES ANY NEEDS AT THIS TIME. NO S/S OF DISTRESS NOTED. WILL CTM.
[2019-04-15 08:10] VITALS: BP 136/78
[2019-04-15 10:32] LABS: BASOPHILS 0 % (0-2); EOSINOPHILS 0 % (0-7); HEMATOCRIT 30.2 % (36.0-48.0); HEMOGLOBIN 9.3 g/dL (12-16); IMMATURE GRANULOCYTES 1.3 % (0-5); LYMPHOCYTES 4.6 % (15-50); MCHC 30.8 g/dL (31.0-37.0); MEAN PLATELET VOLUME 10.5 fL (7.4-10.4); MONOCYTES 3.9 % (2-11); NEUTROPHILS 90.2 % (40-80); PLATELET COUNT 174 10x3/uL (130-400); RBC 3.32 10x6/uL (4.00-5.40); RDW 14.1 % (11.5-14.5); WBC 9.9 10x3/uL (4.8-10.8)
[2019-04-15 10:43] LABS: ANION GAP 13.1 mmol/L (8-16); CALCIUM 8.9 mg/dL (8.5-10.1); CARBON DIOXIDE 27.9 mmol/L (21.0-32.0)
--- NOTE | 2019-04-15 15:19 | NUR ---
I have reviewed this patient and I concur with the Shift Assessment completed by the Licensed Practical Nurse today this shift.
[2019-04-15 15:20] VITALS: BP 142/63
--- NOTE | 2019-04-15 17:53 | NUR ---
PT ATE ALL OF DINNER. IRON CURRENTLY INFUSING. LEON EMPTIED AND RECORDED IN I&O. RR EVEN AND UNLABORED ON 5L 02. PT DENIES ANY NEEDS. NO S/S OF DISTRESS NOTED. WILL CTM.
[2019-04-15 20:35] VITALS: BP 163/63
[2019-04-15 23:34] VITALS: BP 161/60
--- NOTE | 2019-04-16 00:54 | NUR ---
RESTING WITH EYES CLOSED, RESPERATIONS EVEN, NO S/S DISTRESS NOTED.
[2019-04-16 03:31] VITALS: BP 166/76
--- NOTE | 2019-04-16 04:00 | NUR ---
I have reviewed this patient and I concur with the Shift Assessment completed by the Licensed Practical Nurse today this shift.
[2019-04-16 07:21] LABS: BASOPHILS 0.1 % (0-2); EOSINOPHILS 0 % (0-7); HEMATOCRIT 32.7 % (36.0-48.0); HEMOGLOBIN 9.8 g/dL (12-16); IMMATURE GRANULOCYTES 1.4 % (0-5); LYMPHOCYTES 5.1 % (15-50); MCH 27.9 pg (26.0-34.0); MEAN PLATELET VOLUME 10.2 fL (7.4-10.4); MONOCYTES 9.9 % (2-11); NEUTROPHILS 83.5 % (40-80); RBC 3.51 10x6/uL (4.00-5.40); RDW 14.4 % (11.5-14.5)
[2019-04-16 07:23] LABS: MCV 93.2 fL (80.0-100.0); PLATELET COUNT 253 10x3/uL (130-400); WBC 13.2 10x3/uL (4.8-10.8)
--- NOTE | 2019-04-16 07:25 | NUR ---
PT RESITN PEACFULLY, DID NOT WAKE I ENTERED. DID NOT FURTHER DISTURB AT THIS TIME. BREATHS EVEN, REGULAR, AND UNLABORED. NO FAMILY AT BEDSIDE, NO SIGNS OR SYMTOMS OF ACUTE DISTRESS NOTED AT THIS TIME. CL IN REACH, SRX2.
[2019-04-16 07:36] LABS: ANION GAP 12.3 mmol/L (8-16); CALCIUM 9.2 mg/dL (8.5-10.1); CARBON DIOXIDE 31.8 mmol/L (21.0-32.0); CREATININE - SERUM 0.9 mg/dL (0.6-1.3)
[2019-04-16 07:38] LABS: POTASSIUM - SERUM 4.1 mmol/L (3.5-5.1)
[2019-04-16 08:33] VITALS: BP 173/70
--- NOTE | 2019-04-16 10:05 | NUR ---
PT AWAKE AND ORIENTED. SET UP ASSIST WITH MEALS, ATE WELL. AID ASSISTED PT ON/OFF BEDPAN. FAMILY IN ROOM VISITING, ALL QUESTIONS ANSWERED. NO COMPLAINTS/CONCERNS. CL IN REACH. SRX2.
[2019-04-16 12:06] VITALS: BP 160/65
[2019-04-16 15:00] VITALS: BP 163/67
--- NOTE | 2019-04-16 15:00 | NUR ---
I have reviewed this patient and I concur with the Shift Assessment completed by the Licensed Practical Nurse today this shift.
--- NOTE | 2019-04-16 18:33 | NUR ---
ASSISTED PT ON AND OFF BED LOCO. PT IS CLEAN AND DRY AT THIS TIME. NO COMPLAINTS OR CONCERNS AT THIS TIME. ALL QUESTIONS ANSWERED TO THE BEST OF MY ABILITY. CL IN REACH, SRX2.
--- NOTE | 2019-04-16 19:30 | NUR ---
AWAKE AND ALERT BX TX DONE PT LUNGS WITH CRAKLES AND DEMINISHED BED LOW AND LOCKED SKIN WARM AND DRY IV TO LEFT UPPER MIDLINE BED IS LOW AND LOCKED AND CALL LIGHT IS WITH PT
[2019-04-16 20:00] VITALS: BP 165/65
[2019-04-17] VITALS: BP 159/60
[2019-04-17 04:00] VITALS: BP 181/73
[2019-04-17 06:28] LABS: CALC OSMOLALITY 307 mosm/kg (275-300); CALCIUM 8.9 mg/dL (8.5-10.1); CARBON DIOXIDE 37.3 mmol/L (21.0-32.0); CHLORIDE - SERUM 107 mmol/L (98-107); CREATININE - SERUM 0.7 mg/dL (0.6-1.3); GLUCOSE 146 mg/dL (74-106); POTASSIUM - SERUM 3.8 mmol/L (3.5-5.1); SODIUM 150 mmol/L (136-145); UREA NITROGEN 33 mg/dL (7-18); eGFR NON AFRICAN AMERICAN 88 mL/min (90-120)
[2019-04-17 07:17] LABS: HEMOGLOBIN 9.7 g/dL (12-16); MCHC 30.3 g/dL (31.0-37.0); MCV 92.5 fL (80.0-100.0); MEAN PLATELET VOLUME 11.1 fL (7.4-10.4); PLATELET COUNT 227 10x3/uL (130-400); RBC 3.46 10x6/uL (4.00-5.40); RDW 14.9 % (11.5-14.5); WBC 10.5 10x3/uL (4.8-10.8)
--- NOTE | 2019-04-17 07:39 | NUR ---
RECIEVE REPORT. ALERT AND ORIENTED X4. RESTING IN BED. BIPAP ON. DENIES ANY NEEDS AT THIS TIME. CONTINUE PLAN OF CARE AND SAFETY PRECAUTIONS.
[2019-04-17 08:25] VITALS: BP 160/78
[2019-04-17 09:12] LABS: EOSINOPHILS 4 % (0-7); HYPOCHROMASIA OCC; LYMPHOCYTES 4 % (15-50); MONOCYTES 6 % (2-11); NEUTROPHILS 85 % (40-80); PLATELET ESTIMATE NORMAL; ROULEAUX OCC
[2019-04-17 12:22] VITALS: BP 184/73
[2019-04-17 16:35] VITALS: BP 173/73
--- NOTE | 2019-04-17 17:42 | NUR ---
SITTING UP IN BED. FAMILY AT BEDSIDE. BIPAP OFF. OXYGEN ON AT 2L. SINUS RHYTHM ON TELEMETRY. BED BATH AND LINEN CHANGE COMPLETED AT 1300. SWALLOW EVAL CLEAR PER SPEACH THERAPY. DENIES ANY NEEDS AT THIS TIME. CONTINUE PLAN OF CARE AND SAFETY PRECAUTIONS.
--- NOTE | 2019-04-17 19:21 | NUR ---
PT ALERT AND OX4 WITH VISITORS PRESENT AT THIS TIME LCTA BUT DEMINISHEDBED IS LOW AND LOCKED AND PT WITH CALL LIGHT DENIES NEEDS AT THIS TIME
[2019-04-17 20:20] VITALS: BP 147/70
--- NOTE | 2019-04-17 22:52 | NUR ---
PT WEARING BIPAP TOLERATED APPLICATION WELL
[2019-04-18] VITALS: BP 140/71
[2019-04-18 04:00] VITALS: BP 155/70
--- NOTE | 2019-04-18 04:55 | NUR ---
PT IS NOW REFUSING LAB DRAW STATING YOU ARE NOT GONNA HURT ME ANYMORE.
--- NOTE | 2019-04-18 06:50 | NUR ---
I have reviewed this patient and I concur with the Shift Assessment completed by the Licensed Practical Nurse today this shift.
[2019-04-18 08:02] VITALS: BP 135/69
[2019-04-18 11:19] VITALS: BP 157/66
--- NOTE | 2019-04-18 14:09 | NUR ---
Nutrition Follow-up: Pt reports slight improvement in appetite. PO intake remains poor. Does not want Glucerna. Diet: Diabetic PO intake: 20% avg x 7 meals Wt: 218# Last BM: 04/17 Labs noted: Na 150 (04/17), Glu 117 Meds noted: Lasix, Solumedrol, Lactulose, Glucotrol May consider low Na carb consistent diet and appetite stimulant. Lennon food preferences within diet restrictions. RD following.
[2019-04-18 15:08] VITALS: BP 127/61
--- NOTE | 2019-04-18 18:25 | NUR ---
ALERT AND ORIENTED X4. SITTING UP IN BED. RESPIRATORY CULTURE COLLECTED AND TAKEN TO LAB.
--- NOTE | 2019-04-18 19:20 | NUR ---
AROUSES EASILY LCTA BUT DEMINISHED LOWER BASES CRACKLES CONTINUE BUT SEEM TO BE COMING FROM THROAT PT SPITTING UP SOME RED BLOOD MD IS AWARE SKIN WARM AND DRY LEON TO GRAVITY 1200 CC REMOVED AT THIS TIME BED IS LOW AND LOCKED AND CALL LIGHT IS IN REACH
[2019-04-18 20:00] VITALS: BP 147/59
--- NOTE | 2019-04-18 23:28 | NUR ---
PT WEARING BILEVEL AT THIS TIME APPEARS TO BE RESTING COMFORTABLY 65% FIO2
[2019-04-19] VITALS: BP 154/62
--- NOTE | 2019-04-19 00:19 | NUR ---
PT ASLEEP BILEVEL IN USE. FIO2 65% SPO2 92% MASK IN PLACE MINIMAL LEAK
[2019-04-19 04:30] VITALS: BP 151/59
[2019-04-19 07:14] LABS: CALC OSMOLALITY 304 mosm/kg (275-300); CALCIUM 8.8 mg/dL (8.5-10.1); CHLORIDE - SERUM 100 mmol/L (98-107); CREATININE - SERUM 0.7 mg/dL (0.6-1.3); GLUCOSE 149 mg/dL (74-106); SODIUM 149 mmol/L (136-145); UREA NITROGEN 30 mg/dL (7-18); eGFR NON AFRICAN AMERICAN 88 mL/min (90-120)
[2019-04-19 07:28] LABS: BASOPHILS 0.1 % (0-2); EOSINOPHILS 0 % (0-7); HEMATOCRIT 31.8 % (36.0-48.0); HEMOGLOBIN 9.6 g/dL (12-16); IMMATURE GRANULOCYTES 1.2 % (0-5); LYMPHOCYTES 6.3 % (15-50); MCHC 30.2 g/dL (31.0-37.0); MCV 92.7 fL (80.0-100.0); MEAN PLATELET VOLUME 11.1 fL (7.4-10.4); MONOCYTES 4.3 % (2-11); NEUTROPHILS 88.1 % (40-80); PLATELET COUNT 185 10x3/uL (130-400); RBC 3.43 10x6/uL (4.00-5.40); RDW 15.1 % (11.5-14.5); WBC 12.8 10x3/uL (4.8-10.8)
[2019-04-19 07:48] LABS: CARBON DIOXIDE 47.2 mmol/L (21.0-32.0); POTASSIUM - SERUM 2.8 mmol/L (3.5-5.1)
[2019-04-19 07:56] VITALS: BP 164/67
--- NOTE | 2019-04-19 10:20 | NUR ---
UP IN CHAIR WITH PT ASSIST. CALL LIGHT IN REACH. WILL CONT. PLAN OF CARE.
[2019-04-19 11:26] VITALS: BP 152/65
--- NOTE | 2019-04-19 12:54 | NUR ---
INCONT BOWELS. CLEANED AND ASSISTED BACK TO BED WITH CNAS ASSIST.
[2019-04-19 13:45] VITALS: BP 139/56
--- NOTE | 2019-04-19 16:03 | NUR ---
DRSG CHANGED TO MIDLINE.
--- NOTE | 2019-04-19 18:51 | NUR ---
PT RESTING COMFORTBLY 10 HFNC HUMIDIFIED SPO2 94% ZERO CYANOSIS EQUALATERAL EXCURSION BILATERAL CLEAR/DIM BS RR 24 NO IMMEDIATE S/S RESP DISTRESS
--- NOTE | 2019-04-19 19:54 | NUR ---
PATINT IN BED WITH NO S/S OF DISTRESS AT THIS TIME. O2 IN PLACE AT 9L VIA HIGH FLOW. BIPAP , F/C IN PLACE, EDEMA TO LEGS. LEFT ARM MIDLINE IN PLACE WITH NS AT KVO IN PLACCE. CALL LIGHT IN REACH BED LOW.
[2019-04-19 20:00] VITALS: BP 140/55
--- NOTE | 2019-04-19 22:33 | NUR ---
PT WEARING BIPAP FIO2 60% RESTING COMFORTABLY SPO2 CURRENTLY 92 TX GIVEN IN LINE ZERO CYANOSIS NO S/S IMMEDIATE RESP DISTRESS
[2019-04-20] VITALS: BP 137/52
--- NOTE | 2019-04-20 00:48 | NUR ---
PT CURRENTLY WEARING BILEVEL APPEARS TO BE RESTING COMFORTABLY FIO2 60% SPO2 92
[2019-04-20 02:32] LABS: CALC OSMOLALITY 304 mosm/kg (275-300); CALCIUM 8.6 mg/dL (8.5-10.1); CHLORIDE - SERUM 103 mmol/L (98-107); CREATININE - SERUM 0.7 mg/dL (0.6-1.3); GLUCOSE 136 mg/dL (74-106); SODIUM 149 mmol/L (136-145); UREA NITROGEN 32 mg/dL (7-18); eGFR NON AFRICAN AMERICAN 88 mL/min (90-120)
[2019-04-20 02:33] LABS: CARBON DIOXIDE 49.3 mmol/L (21.0-32.0)
[2019-04-20 02:53] LABS: HEMATOCRIT 29.8 % (36.0-48.0); HEMOGLOBIN 8.9 g/dL (12-16); MCH 27.9 pg (26.0-34.0); MCHC 29.9 g/dL (31.0-37.0); MCV 93.4 fL (80.0-100.0); MEAN PLATELET VOLUME 11.3 fL (7.4-10.4); RBC 3.19 10x6/uL (4.00-5.40); RDW 15.2 % (11.5-14.5); WBC 14.2 10x3/uL (4.8-10.8)
[2019-04-20 02:55] LABS: PLATELET COUNT 143 10x3/uL (130-400)
[2019-04-20 03:17] LABS: LYMPHOCYTES 1 % (15-50); MONOCYTES 2 % (2-11); NEUTROPHILS 97 % (40-80); PLATELET ESTIMATE DECREASED
--- NOTE | 2019-04-20 03:22 | NUR ---
CRITICAL LAB CARBON DIOXIDE 49.2 THIS AM CALL TO DAVID RAYA . STATED TO EDUCATED PT, TO USE BI PAP 9--19 WAS 47.2.
[2019-04-20 04:30] VITALS: BP 137/62; BP 154/82
--- NOTE | 2019-04-20 07:13 | NUR ---
REPORT RECEIVED. WILL CONTINUE WITH POC. PT CURRENTLY LYING SEMI FOWLERS. CALL LIGHT W/I REACH. PT IS AAO AND BEDFAST. RR EVEN AND LABORED 9L HIGH FLOW NC. NS INFUSING @KVO VIA L.UPPER ARM MIDLINE. LEON IN PLACE AND DRAINING URINE. PT DENIES ANY NEEDS. NO S/S OF DISTRESS NOTED. WILL CTM.
[2019-04-20 08:00] VITALS: BP 145/53
--- NOTE | 2019-04-20 12:32 | NUR ---
I have reviewed this patient and I concur with the Shift Assessment completed by the Licensed Practical Nurse today this shift.
[2019-04-20 12:45] VITALS: BP 173/67
--- NOTE | 2019-04-20 14:45 | NUR ---
LEON CARE PERFORMED WITH LEON CARE WIPES. NEW STAT LOCK IN PLACE. PT CURRENTLY GETTING BATH. WILL CTM.
[2019-04-20 16:58] VITALS: BP 141/52
--- NOTE | 2019-04-20 19:55 | NUR ---
PT RESTING IN BED ALERT AND ORIENTED X4. PT RR EVEN AND UNLABORED AT THIS TIME. BED LOW CALL LIGHT WITHIN REACH. NO S/S OF DISTRESS AT THIS TIME. RT PAGED TO PUT PT BIPAP BACK ON. WILL CONTINUE TO MONITOR.
[2019-04-20 20:00] VITALS: BP 142/57
[2019-04-21] VITALS (7 sets, daily range): BP systolic 118–166; BP diastolic 45–67
--- NOTE | 2019-04-21 01:36 | NUR ---
PT RESTING COMFORTABLY IN BED WITH BIPAP IN PLACE. NO S/S OF DISTRESS AT THIS TIME. BED LOW CALL LIGHT WITHIN REACH. WILL CONTINUE TO MONITOR.
--- NOTE | 2019-04-21 05:32 | NUR ---
I have reviewed this patient and I concur with the Shift Assessment completed by the Licensed Practical Nurse today this shift.
[2019-04-21 07:06] LABS: BASOPHILS 0.1 % (0-2); EOSINOPHILS 0.1 % (0-7); HEMOGLOBIN 9.8 g/dL (12-16); IMMATURE GRANULOCYTES 1.4 % (0-5); LYMPHOCYTES 6.3 % (15-50); MCH 28.3 pg (26.0-34.0); MCHC 29.7 g/dL (31.0-37.0); MEAN PLATELET VOLUME 10.2 fL (7.4-10.4); MONOCYTES 4.4 % (2-11); NEUTROPHILS 87.7 % (40-80); RBC 3.46 10x6/uL (4.00-5.40); RDW 15.9 % (11.5-14.5); WBC 17.7 10x3/uL (4.8-10.8)
[2019-04-21 07:07] LABS: MCV 95.4 fL (80.0-100.0); PLATELET COUNT 203 10x3/uL (130-400)
[2019-04-21 07:26] LABS: ALBUMIN 2.9 g/dL (3.4-5.0); ALKALINE PHOSPHATASE 85 U/L (46-116); ALT (SGPT) 26 U/L (10-68); BILIRUBIN - TOTAL 0.84 mg/dL (0.2-1.3); CALC OSMOLALITY 304 mosm/kg (275-300); CHLORIDE - SERUM 98 mmol/L (98-107); CREATININE - SERUM 0.8 mg/dL (0.6-1.3); GLUCOSE 167 mg/dL (74-106); SODIUM 148 mmol/L (136-145); UREA NITROGEN 31 mg/dL (7-18); eGFR NON AFRICAN AMERICAN 75 mL/min (90-120)
[2019-04-21 07:37] LABS: CARBON DIOXIDE 50.8 mmol/L (21.0-32.0); POTASSIUM - SERUM 2.8 mmol/L (3.5-5.1)
--- NOTE | 2019-04-21 09:50 | NUR ---
AM MEDICATIONS ADMINISTERED ALONG WITH POTASSIUM REPLACEMENT. PT DENIES ANY NEEDS. NS INFUSING @KVO VIA L.UPPER ARM MIDLINE. RR EVEN AND LABORED ON HIGH FLOW NC. WILL CTM.
--- NOTE | 2019-04-21 13:34 | NUR ---
Nutrition Follow-up: Pt reports appetite improving. Ate ~50% of breakfast this AM. Diet: Diabetic PO intake: 44% avg x 4 meals Wt: 158# Last BM: 04/21 Labs noted: Glu 167, K+ 2.8, Na 148, Alb 2.9 Meds noted: Solumedrol, Glucotrol, Humulin, KDur Continue current diet as tolerated. [place] food preferences within diet restrictions. RD following.
--- NOTE | 2019-04-21 15:02 | NUR ---
I have reviewed this patient and I concur with the Shift Assessment completed by the Licensed Practical Nurse today this shift.
--- NOTE | 2019-04-21 15:50 | NUR ---
OT NOTE: PT REQUIRED MAX A FOR CHAIR TO BED TRANSFER. PT COMPLETED BED MOB WITH MAX A. PT COMPLETED HYGIENE TASKS WITH MAX A. PT EXHIBITS POOR ACTIVITY TOLERANCE. PT IS COOPERATIVE. THANK YOU, LAURENT SAWYER
--- NOTE | 2019-04-22 03:09 | NUR ---
RESTING WITH EYES CLOSED, RESPERATIONS EVEN, NO S/S DISTRESS NOTED.
[2019-04-22 04:21] VITALS: BP 151/64
[2019-04-22 05:03] LABS: BASOPHILS 0.2 % (0-2); EOSINOPHILS 0.1 % (0-7); HEMATOCRIT 28.6 % (36.0-48.0); HEMOGLOBIN 8.6 g/dL (12-16); LYMPHOCYTES 6.5 % (15-50); MCH 28.3 pg (26.0-34.0); MCHC 30.1 g/dL (31.0-37.0); MCV 94.1 fL (80.0-100.0); MEAN PLATELET VOLUME 10.7 fL (7.4-10.4); MONOCYTES 4.1 % (2-11); NEUTROPHILS 87.1 % (40-80); PLATELET COUNT 178 10x3/uL (130-400); RBC 3.04 10x6/uL (4.00-5.40); RDW 15.9 % (11.5-14.5); WBC 14.2 10x3/uL (4.8-10.8)
[2019-04-22 05:20] LABS: ALBUMIN 2.4 g/dL (3.4-5.0); ALKALINE PHOSPHATASE 80 U/L (46-116); ALT (SGPT) 27 U/L (10-68); BILIRUBIN - TOTAL 0.81 mg/dL (0.2-1.3); CALC OSMOLALITY 303 mosm/kg (275-300); CALCIUM 8.6 mg/dL (8.5-10.1); CARBON DIOXIDE 38.9 mmol/L (21.0-32.0); CHLORIDE - SERUM 105 mmol/L (98-107); CREATININE - SERUM 0.6 mg/dL (0.6-1.3); GLUCOSE 142 mg/dL (74-106); POTASSIUM - SERUM 4.4 mmol/L (3.5-5.1); PROTEIN - SERUM 5.5 g/dL (6.4-8.2); SODIUM 149 mmol/L (136-145); UREA NITROGEN 28 mg/dL (7-18); eGFR NON AFRICAN AMERICAN > 90 mL/min (90-120)
--- NOTE | 2019-04-22 07:30 | NUR ---
AASSESSMENT DONE. DENIES NEEDS
[2019-04-22 08:45] VITALS: BP 108/51
[2019-04-22 12:39] VITALS: BP 146/52
--- NOTE | 2019-04-22 14:18 | NUR ---
I have reviewed this patient and I concur with the Shift Assessment completed by the Licensed Practical Nurse today this shift.
--- NOTE | 2019-04-22 15:21 | MORECARE ---
CASE MANAGEMENT DISCHARGE SUMMARY PATIENT: DELLA BRISENO UNIT: [id number] ADM DATE: 04/10/19 AGE: 68 : 49 SEX: F ROOM/BED: D.0414 AUTHOR: FISH,DOC PHYSICIAN: REFERRING PHYSICIAN: AC MARCELINO MD DATE OF SERVICE: 04/22/19 Discharge Plan Patient Name: DELLA BRISENO Facility: [facility]:[place] : 1950 Planned Disposition: Home Anticipated Discharge Date: Discharge Date: Expected LOS: Initial Reviewer: [email or web address] Initial Review Date: 04/12/2019 Generated: 04/22/19 4:20 pm Comments DCP- Discharge Planning Updated by [id number]: Tierney Shukla on 04/22/19 2:[address] CM RECEIVED AN ORDER TO ARRANGE FOR A VIVO 65 THRU [facility]. PATIENT REMAINS ON 9/L OXYGEN. SHE HAS [facility] MEDICARE SOLUTIONS IJNSURANCE PROVIDER. WILL NEED TO CONTACT THE APPROPRIATE [facility] STAFF ON WEDNESDAY AND HER PROVIDER TO REQUEST THIS UNIT. CM TO FOLLOW. DCP- Discharge Planning Updated by [id number]: Nora Berrios on 04/12/19 10:[address] Patient Name: DELLA BRISENO Admission Status: ER Accout number: [id number] Admission Date: 04-10-2019 : 1950 Admission Diagnosis: Attending: AC MARCELINO Current LOS: 2 Anticipated DC Date: Planned Disposition: Home Primary Insurance: [facility] MEDICARE SOLUTIONS Discharge Planning Comments: CM met with patient to complete initial dc planning assessment. CM educated patient on the CM role and verbal consent given by patient to complete assessment. Patient lives at home with her , daughter and family where she is for the most part total care. Daughter Lali states that patient at times could use walker with assist to go to restroom but would need to rest and catch her breath. At discharge patient plans to return home and feels this is a safe discharge. CM gave Lali information on some resources to help within the home. Lali stated that her father has just started having radiation treatments and she is having a difficult time taking care of both of them. CM discussed availability of home health, rehab services, and medical equipment. Lali also stated that they are suppose to be getting a hospital bed d/t her mother sliding out of the bed at home. Family will transport home. Patient has a nebulizer and home o2 ( [place] home patient ) Patient denied known discharge needs at this time. CM will continue to follow and will assist as needed with dc plans/needs. Art History Professor: Nora Berrios DCP- Discharge Planning Updated by [id number]: Nora Berrios on 04/11/19 5:[address] CM wasn't able to speak to patient regarding discharge planning d/t her having to wear BiPAP continuously. No family available. CM will continue to follow and assist as needed with discharge planning / needs. DCPIA - Discharge Planning Initial Assessment Updated by [id number]: Nora Berrios on 04/12/19 11:20 am * Is the patient Alert and Oriented? Yes * How many steps to enter\exit or inside your home? * PCP CECILIA - BUT HAS BEEN SEEING HOUSE CALLS FOR THE LAST SEVERAL YEARS NOT GOING TO CLINIC * [facility] * Preadmission Environment Home with Family * ADLs Total Dependent * Other Equipment HOME / PORTABLE 02, NEBULIZER, 02 MONITOR, GLUCOMETER, HOSPITAL BED PENDING * List name and contact numbers for known caregivers / representatives who currently or will assist patient after discharge: LALI BRISENO - DAUGHTER- [phone] * Verbal permission to speak to the caregivers and representatives has been obtained from the patient. Yes * Please name any agencies selected above. [employer] CALL[employer], [employer] * Additional services required to return to the preadmission environment? No * Can the patient safely return to the preadmission environment? Yes * Has this patient been hospitalized within the prior 30 days at any hospital? No Last DP export: 04/12/19 10:57 a Patient Name: DELLA BRISENO Page [id number] at 1521 All edits/amendments must be made on the electronic document DICTATION DATE: 04/22/19 152 CHANNEL PARTNERS: MARCOS 04/22/19 152 RPT#: [id number] DC DATE: STATUS: ADM IN [facility] [address] [place] [address] END OF REPORT
[2019-04-22 16:45] VITALS: BP 145/52
--- NOTE | 2019-04-22 17:18 | NUR ---
FAMILY AT SIDE. WITHOUT CHANGES OR DISTRESS NOTED AT THIS TIME. DENIES NEEDS
[2019-04-22 21:31] VITALS: BP 144/50
--- NOTE | 2019-04-22 22:14 | NUR ---
INITIAL ORUNDS COMPLETED AT 191 HRS. PT DENIED ANY DISCOMFORT. ASSESSMENT COMPELTED AT 194 HRS. VSS. SR PER CM HR 85. PT ALERT AND ORIENTED TO PERSON, PLACE AND TIME. SOMMER. O2 9L HIGH FLOW O2. IV TO L UPPER ARM MIDLINE WITH NS AT 20CC/HR. IV PATENT. LUNGS DIMINISHED IN BASES BILAT. BRUISES NOTED TO BILAT ARMS. PM FSBS 124. NO COVERAGE NECCESSARY. PM MEDS GIVEN. PT CURRENTLY RESTING WITH EYES CLOSED. RESP EVEN AND REGULAR. SR UP X2,CALL LIGHT WITHN REACH.
--- NOTE | 2019-04-23 00:08 | NUR ---
PT RESTING WITH EYES CLOSED. RESP EVEN AND REGULAR. SR UP X2, CALL LIGHT WITHIN REACH.
[2019-04-23 01:07] VITALS: BP 150/55
--- NOTE | 2019-04-23 02:46 | NUR ---
PT RESTING WITH EYES CLOSED. RESP EVEN AND REGULAR. SR UP X2, CALL LIGHT WITHIN REACH.
--- NOTE | 2019-04-23 04:33 | NUR ---
PT RESTING WITH EYES CLOSED. RESP EVEN AND REGULAR. BIPAP IN USE. CALL LIGHT WITHIN REACH.
[2019-04-23 04:36] VITALS: BP 162/64
[2019-04-23 08:11] VITALS: BP 140/46
--- NOTE | 2019-04-23 10:12 | NUR ---
PATIENT ASSISTED ON TO THE BED LOCO. MEDICATIONS GIVEN PER MAR AND PATIENT ASSISSTED TO CHAIR VIA PHYSICAL THERAPY. TRAY SET UP FOR BREAKFAST AND FAMILY AT BEDSIDE. PATIENT REFUSED TO TAKE LACTULOSE OR HAVE AM LABS DRAWN THIS AM. BED IN LOW POSTITION AND CALL LIGHT IS IN REACH. PATIENT DENIES AND ADDITIONAL NEEDS OR PAIN AT THIS TIME.
[2019-04-23 11:34] VITALS: BP 136/62
[2019-04-23 15:52] VITALS: BP 161/68
[2019-04-23 20:00] VITALS: BP 152/60
--- NOTE | 2019-04-23 22:53 | NUR ---
INITIAL ROUNDS COMPLETED AT 1915 HRS. PT DENIED ANY DISCOMFORT. ASSESSMENT COMPLETED AT 1999 HRS. VSS. SR PER CM HR 76. PT ALERT AND ORIENTED. MIDLINE TO UPPER L ARM WITH NS AT 20CC/ HR. IV PATENT. BRUISES NOTED TO BILAT ARMS. O2 8L HIGH FLOW O2. LUNGS DIMINISHED IN BASES BILAT. SOMMER. LEON DRAINING YELLOW URINE. PM FABA 114. NO COVERAGE NECCESSARY. PM MEDS GIVEN. PT CURRENTLY RESTING WITH EYES CLOSED. RESP EVEN AND REGULAR. SR UP X2,CALL LIGHT WITHIN REACH.
[2019-04-24 00:01] VITALS: BP 144/58
--- NOTE | 2019-04-24 00:10 | NUR ---
PT RESTING WITH EYES CLOSED. RESP EVEN AND REGULAR. SR UP X2, CALL LIGHT WITHIN REACH.
--- NOTE | 2019-04-24 02:21 | NUR ---
PT RESTING WITH EYES CLOSED. RESP EVEN AND REGULAR. BIPAP IN USE. S RUP X2,CALL LIGHT WITHIN REACH.
[2019-04-24 04:00] VITALS: BP 114/75
--- NOTE | 2019-04-24 05:44 | NUR ---
PT RESTING WITH EYES CLOSED. RESP EVEN AND REGULAR. BIPAP IN USE.
--- NOTE | 2019-04-24 06:59 | NUR ---
PT REFUSED AM LAB.
[2019-04-24 07:38] VITALS: BP 161/65
[2019-04-24 11:39] VITALS: BP 123/46
[2019-04-24 14:51] VITALS: BP 167/67
--- NOTE | 2019-04-24 15:04 | NUR ---
OT NOTE: PT COMPLETED BED MOB WITH MOD A. PT COMPLETED EOB SITTING WITH SBA. PT COMPLETED BED TO CHAIR TRANSFER WITH MAX A WHILE BEARING WT IN LES. PT COMPLETED UE AROM AXS. PT CONCERNED WITH DISCHARGE DESTINATION. PT APPREHENSIVE ABOUT [facility]TC REHAB SETTING. MANCILLA ANSWERED QUESTIONS THAT PATIENT POSED. THANK YOU, LAURENT SAWYER
--- NOTE | 2019-04-24 15:49 | NUR ---
OT NOTE: PT PERFORMED BED MOB WITH MOD/MAX ASSIST. SIMPLE GROOMING TASKS WITH SET UP; MAX ASSIST WITH DRESSING AND TOILETING. MAX ASSIST WITH FUNCTIONAL TRANSFERS. GERALD MARTINES, OTR/L
--- NOTE | 2019-04-24 16:27 | NUR ---
REHAB NOTE- ACUTE INPATIENT REHAB PRESCREEN ORDER RECEIVED. THE PATIENT HAS [facility] INSURANCE AND WILL REQUIRE A PREAUTH PRIOR TO AN ACUTE INPATIENT REHAB STAY. WILL BEGIN THE PREAUTH PROCESS. THANK YOU FOR THIS REFERRAL! CHANELLE ZAMORA RN CLINICAL LIAISON, [facility]
--- NOTE | 2019-04-24 17:40 | MORECARE ---
CASE MANAGEMENT DISCHARGE SUMMARY PATIENT: DELLA BRISENO UNIT: [id number] ADM DATE: 04/10/19 AGE: 68 : 49 SEX: F ROOM/BED: D.7515 AUTHOR: FISH,DOC PHYSICIAN: REFERRING PHYSICIAN: AC MARCELINO MD DATE OF SERVICE: 04/24/19 Discharge Plan Patient Name: DELLA BRISENO Facility: [facility]:[place] : 1950 Planned Disposition: Inpatient Rehab Anticipated Discharge Date: Discharge Date: Expected LOS: Initial Reviewer: [email or web address] Initial Review Date: 04/12/2019 Generated: 04/24/19 6:39 pm DCP- Discharge Planning Updated by [email or web address]: Tierney Shukla on 04/22/19 2:[address] CM RECEIVED AN ORDER TO ARRANGE FOR A VIVO 65 THRU [facility]. PATIENT REMAINS ON 9/L OXYGEN. SHE HAS [facility] MEDICARE SOLUTIONS IJNSURANCE PROVIDER. WILL NEED TO CONTACT THE APPROPRIATE [facility] STAFF ON WEDNESDAY AND HER PROVIDER TO REQUEST THIS UNIT. CM TO FOLLOW. DCP- Discharge Planning Updated by [id number]: Nora Berrios on 04/12/19 10:[address] Patient Name: DELLA BRISENO Admission Status: ER Accout number: [id number] Admission Date: 04-10-2019 : 1950 Admission Diagnosis: Attending: AC MARCELINO Current LOS: 2 Anticipated DC Date: Planned Disposition: Home Primary Insurance: [facility] MEDICARE SOLUTIONS Discharge Planning Comments: CM met with patient to complete initial dc planning assessment. CM educated patient on the CM role and verbal consent given by patient to complete assessment. Patient lives at home with her , daughter and family where she is for the most part total care. Daughter Lali states that patient at times could use walker with assist to go to restroom but would need to rest and catch her breath. At discharge patient plans to return home and feels this is a safe discharge. CM gave Lali information on some resources to help within the home. Lali stated that her father has just started having radiation treatments and she is having a difficult time taking care of both of them. CM discussed availability of home health, rehab services, and medical equipment. Lali also stated that they are suppose to be getting a hospital bed d/t her mother sliding out of the bed at home. Family will transport home. Patient has a nebulizer and home o2 ( [place] home patient ) Patient denied known discharge needs at this time. CM will continue to follow and will assist as needed with dc plans/needs. Senior Scientist: Nora Berrios DCP- Discharge Planning Updated by [id number]: Nora Berrios on 04/11/19 5:[address] CM wasn't able to speak to patient regarding discharge planning d/t her having to wear BiPAP continuously. No family available. CM will continue to follow and assist as needed with discharge planning / needs. DCPIA - Discharge Planning Initial Assessment Updated by [id number]: Nora Berrios on 04/12/19 11:20 am * Is the patient Alert and Oriented? Yes * How many steps to enter\exit or inside your home? * PCP CECILIA - TRISHA HAS BEEN SEEING HOUSE CALLS FOR THE LAST SEVERAL YEARS NOT GOING TO CLINIC * [facility] * Preadmission Environment Home with Family * ADLs Total Dependent * Other Equipment HOME / PORTABLE 02, NEBULIZER, 02 MONITOR, GLUCOMETER, HOSPITAL BED PENDING * List name and contact numbers for known caregivers / representatives who currently or will assist patient after discharge: LALI BRISENO - DAUGHTER- [phone] * Verbal permission to speak to the caregivers and representatives has been obtained from the patient. Yes * Please name any agencies selected above. [employer]SE CALLS, [employer] * Additional services required to return to the preadmission environment? No * Can the patient safely return to the preadmission environment? Yes * Has this patient been hospitalized within the prior 30 days at any hospital? No Coverage Notice Reviewer: [id number] Jan Goncalves Notice Issued Date-Time: 04/24/2019 9:50 Notice Type: IM Discharge Notice Notice Delivered To: Patient Relationship to Patient: Institutional Research Director Name: Delivery Method: HAND - Hand Delivered Rosa Isela Days: Prior Verbal Notification: Recipient Understood Notice: Yes Recipient Signature: Yes Med Rec Note Co-signed by Attending: Coverage Notice Comment: Last DP export: 04/22/19 2:21 pm Patient Name: DELLA BRISENO Page [id number] at 1740 All edits/amendments must be made on the electronic document DICTATION DATE: 04/24/191738 DENITRATOR: MARCOS 04/24/191738 RPT#: [id number] DC DATE: STATUS: ADM IN [facility] [address] [place] [address] END OF REPORT
--- NOTE | 2019-04-24 17:49 | MORECARE ---
CASE MANAGEMENT DISCHARGE SUMMARY PATIENT: DELLA BRISENO UNIT: [id number] ADM DATE: 04/10/19 AGE: 68 : 49 SEX: F ROOM/BED: D.3574 AUTHOR: FISH,DOC PHYSICIAN: REFERRING PHYSICIAN: AC MARCELINO MD DATE OF SERVICE: 04/24/19 Discharge Plan Patient Name: DELLA BRISENO Facility: [facility]:[place] : 1950 Planned Disposition: Inpatient Rehab Anticipated Discharge Date: Discharge Date: Expected LOS: Initial Reviewer: [id number] Initial Review Date: 04/12/2019 Generated: 04/24/19 6:49 pm Comments DCP- Discharge Planning Updated by [email or web address]: Chidi Goncalves on 04/24/19 4:[address] Patient Name: DELLA BRISENO Encounter No: [id number] : 1950 Primary Insurance: [facility] MEDICARE SOLUTIONS Anticipated DC Date: Planned Disposition: Inpatient Rehab External Planned Provider: [facility] INPATIENT REHAB DCP follow-up note: CM RECEIVED REQUEST TO SPEAK TO PT IN ROOM. BEDSIDE NURSE DOES NOT KNOW WHY PT WANTS TO SEE CM, BUT PT HAS REFUSED ALL LABS THIS MORNING. CM MET WITH PT IN ROOM. PT INFORMED CM THAT DR. COBIAN TOLD HER SHE IS GOING TO REHAB AT [facility] AND WANTED TO KNOW PROGRESS OF THIS. CM EXPLAINED THAT NO ORDERS HAD BEEN ENTERED FOR INPATIENT REHAB PRESCREENING OF YET AND THAT PT'S INSURANCE WOULD HAVE TO APPROVE REHAB. CM EXPLAINED THAT PT WOULD NEED TO BE ABLE TO TOLERATE THREE HOURS OF PROGRESSIVE THERAPY PER DAY. PT STATES SHE CAN DO IT. PT'S PLAN AFTER REHAB IS TO DISCHARGE HOME WHERE SHE WAS INDEPENDENT IN HER CARE PRIOR TO GETTING SICK. CM DISCUSSED POSSIBLITY OF INSURANCE DECLINING INPATIENT, DISCUSSED AVAILABLE JAIL FACLITIES, PROVIDED LISTING. PT ASKED CM TO CALL HER DAUGHTER, PATRICIA. CM CALLED PATRICIA, , LEFT MESSAGE ASKING FOR RETURN CALL. IMPORTANT MESSAGE FROM MEDICARE PROVIDED AND EXPLAINED. CM NOTIFIED CHANELLE OF INPATIENT REHAB, DR. MARCELINO AND DAVID BRAXTON IN MULTIDISCIPLINARY TEAM MEETING. ORDER FOR INPATIENT REHAB PRESCREENING OBTAINED. CM WAITING ADMISSION DETERMINATION FROM INPATIENT REHAB AT [facility] [facility] INSURANCE AUTHORIZATION FOR SERVICES. Chidi Goncalves, CASE MANAGEMENT DCP- Discharge Planning Updated by [id number]: Tierney Shukla on 04/22/19 2:[address] CM RECEIVED AN ORDER TO ARRANGE FOR A VIVO 65 THRU [facility]. PATIENT REMAINS ON 9/L OXYGEN. SHE HAS [facility] MEDICARE SOLUTIONS IJNSURANCE PROVIDER. WILL NEED TO CONTACT THE APPROPRIATE [facility] STAFF ON WEDNESDAY AND HER PROVIDER TO REQUEST THIS UNIT. CM TO FOLLOW. DCP- Discharge Planning Updated by [id number]: Nora Berrios on 04/12/19 10:[address] Patient Name: DELLA BRISENO Admission Status: ER Accout number: [id number] Admission Date: 04-10-2019 : 1950 Admission Diagnosis: Attending: AC MARCELINO Current LOS: 2 Anticipated DC Date: Planned Disposition: Home Primary Insurance: [facility] MEDICARE SOLUTIONS Discharge Planning Comments: CM met with patient to complete initial dc planning assessment. CM educated patient on the CM role and verbal consent given by patient to complete assessment. Patient lives at home with her , daughter and family where she is for the most part total care. Daughter Lali states that patient at times could use walker with assist to go to restroom but would need to rest and catch her breath. At discharge patient plans to return home and feels this is a safe discharge. CM gave Lali information on some resources to help within the home. Lali stated that her father has just started having radiation treatments and she is having a difficult time taking care of both of them. CM discussed availability of home health, rehab services, and medical equipment. Lali also stated that they are suppose to be getting a hospital bed d/t her mother sliding out of the bed at home. Family will transport home. Patient has a nebulizer and home o2 ( [place] home patient ) Patient denied known discharge needs at this time. CM will continue to follow and will assist as needed with dc plans/needs. Car Worker: Nora Berrios DCP- Discharge Planning Updated by [id number]: Nora Berrois on 04/11/19 5:[address] CM wasn't able to speak to patient regarding discharge planning d/t her having to wear BiPAP continuously. No family available. CM will continue to follow and assist as needed with discharge planning / needs. DCPIA - Discharge Planning Initial Assessment Updated by [email or web address]: Nora Berrios on 04/12/19 11:20 am * Is the patient Alert and Oriented? Yes * How many steps to enter\exit or inside your home? * PCP [facility] - BUT HAS BEEN SEEING HOUSE CALLS FOR THE LAST SEVERAL YEARS NOT GOING TO CLINIC * Pharmacy ADITIR - [facility] [address] * Preadmission Environment Home with Family * ADLs Total Dependent * Other Equipment HOME / PORTABLE 02, NEBULIZER, 02 MONITOR, GLUCOMETER, HOSPITAL BED PENDING * List name and contact numbers for known caregivers / representatives who currently or will assist patient after discharge: LALI BRISENO - DAUGHTER- [phone] * Verbal permission to speak to the caregivers and representatives has been obtained from the patient. Yes * Please name any agencies selected above. [employer], [employer] * Additional services required to return to the preadmission environment? No * Can the patient safely return to the preadmission environment? Yes * Has this patient been hospitalized within the prior 30 days at any hospital? No Coverage Notice Reviewer: [id number] Jan Goncalves Notice Issued Date-Time: 04/24/2019 9:50 Notice Type: IM Discharge Notice Notice Delivered To: Patient Relationship to Patient: Morphologist Name: Delivery Method: HAND - Hand Delivered Rosa Isela Days: Prior Verbal Notification: Recipient Understood Notice: Yes Recipient Signature: Yes Med Rec Note Co-signed by Attending: Coverage Notice Comment: Last DP export: 04/24/19 4:40 pm Patient Name: DELLA BRISENO Page [id number] at 1749 All edits/amendments must be made on the electronic document DICTATION DATE: 04/24/191748 HYDROMETEOROLOGIST: MARCOS 04/24/191748 RPT#: [id number] [place] DATE: STATUS: ADM IN [facility] [address] [place] [address] END OF REPORT
[2019-04-24 20:00] VITALS: BP 118/64
--- NOTE | 2019-04-24 21:56 | NUR ---
PT REFUSED LACTULOSE, STATES SHE IS FINE WITHOUT IT. INSULIN ALSO NOT GIVING AT THIS TIME. PER SLIDING SCALE. VANILLA PUDDING PROVIDED PER PT'S REQUEST. WILL CPOC.
--- NOTE | 2019-04-24 22:55 | NUR ---
REFUSED BREATHING TX DUE TO NAUSEA APPLIED BILEVEL 60 FIO2 SPO2 94% GE APPLICATION WELL
--- NOTE | 2019-04-24 23:13 | NUR ---
PROVIDED PT WITH FRESH LINEN. RT IN PT ROOM ASSIST PT WITH BIPAP. PT DENIES ANY FURTHER NEEDS. WILL CTM.
[2019-04-25] VITALS: BP 153/72
[2019-04-25 04:30] VITALS: BP 142/62
[2019-04-25 06:50] LABS: BASOPHILS 0.1 % (0-2); EOSINOPHILS 0.6 % (0-7); HEMATOCRIT 29.8 % (36.0-48.0); IMMATURE GRANULOCYTES 0.4 % (0-5); LYMPHOCYTES 8.1 % (15-50); MCH 28.8 pg (26.0-34.0); MCHC 30.2 g/dL (31.0-37.0); MCV 95.2 fL (80.0-100.0); MEAN PLATELET VOLUME 10.7 fL (7.4-10.4); NEUTROPHILS 85.8 % (40-80); PLATELET COUNT 149 10x3/uL (130-400); RBC 3.13 10x6/uL (4.00-5.40); RDW 15.3 % (11.5-14.5); WBC 14.5 10x3/uL (4.8-10.8)
[2019-04-25 06:59] LABS: ALBUMIN 2.4 g/dL (3.4-5.0); ALKALINE PHOSPHATASE 93 U/L (46-116); ALT (SGPT) 22 U/L (10-68); BILIRUBIN - TOTAL 0.64 mg/dL (0.2-1.3); CALC OSMOLALITY 286 mosm/kg (275-300); CALCIUM 8.5 mg/dL (8.5-10.1); CARBON DIOXIDE 39.4 mmol/L (21.0-32.0); CHLORIDE - SERUM 105 mmol/L (98-107); CREATININE - SERUM 0.5 mg/dL (0.6-1.3); GLUCOSE 104 mg/dL (74-106); PROTEIN - SERUM 5.6 g/dL (6.4-8.2); SODIUM 144 mmol/L (136-145); UREA NITROGEN 13 mg/dL (7-18); eGFR NON AFRICAN AMERICAN > 90 mL/min (90-120)
[2019-04-25 07:12] LABS: POTASSIUM - SERUM 2.9 mmol/L (3.5-5.1)
--- NOTE | 2019-04-25 07:21 | MORECARE ---
CASE MANAGEMENT DISCHARGE SUMMARY PATIENT: DELLA BRISENO UNIT: [id number] ADM DATE: 04/10/19 AGE: 68 : 49 SEX: F ROOM/BED: D.3141 AUTHOR: FISH,DOC PHYSICIAN: REFERRING PHYSICIAN: AC MARCELINO MD DATE OF SERVICE: 04/25/19 Discharge Plan Patient Name: DELLA BRISENO Facility: [facility]:[place] : 1950 Planned Disposition: Inpatient Rehab Anticipated Discharge Date: Discharge Date: Expected LOS: Initial Reviewer: [id number] Initial Review Date: 04/12/2019 Generated: 04/25/19 8:21 am Comments DCP- Discharge Planning Updated by [email or web address]: Chidi Goncalves on 04/24/19 4:[address] Patient Name: DELLA BRISENO Encounter No: [id number] : 1950 Primary Insurance: [facility] MEDICARE SOLUTIONS Anticipated DC Date: Planned Disposition: Inpatient Rehab External Planned Provider: [facility] INPATIENT REHAB DCP follow-up note: CM RECEIVED REQUEST TO SPEAK TO PT IN ROOM. BEDSIDE NURSE DOES NOT KNOW WHY PT WANTS TO SEE CM, BUT PT HAS REFUSED ALL LABS THIS MORNING. CM MET WITH PT IN ROOM. PT INFORMED CM THAT DR. COBIAN TOLD HER SHE IS GOING TO REHAB AT [facility] AND WANTED TO KNOW PROGRESS OF THIS. CM EXPLAINED THAT NO ORDERS HAD BEEN ENTERED FOR INPATIENT REHAB PRESCREENING OF YET AND THAT PT'S INSURANCE WOULD HAVE TO APPROVE REHAB. CM EXPLAINED THAT PT WOULD NEED TO BE ABLE TO TOLERATE THREE HOURS OF PROGRESSIVE THERAPY PER DAY. PT STATES SHE CAN DO IT. PT'S PLAN AFTER REHAB IS TO DISCHARGE HOME WHERE SHE WAS INDEPENDENT IN HER CARE PRIOR TO GETTING SICK. CM DISCUSSED POSSIBLITY OF INSURANCE DECLINING INPATIENT, DISCUSSED AVAILABLE LONG-TERM FACLITIES, PROVIDED LISTING. PT ASKED CM TO CALL HER DAUGHTER, PATRICIA. CM CALLED PATRICIA, , LEFT MESSAGE ASKING FOR RETURN CALL. IMPORTANT MESSAGE FROM MEDICARE PROVIDED AND EXPLAINED. CM NOTIFIED CHANELLE OF INPATIENT REHAB, DR. MARCELINO AND DAVID BRAXTON IN MULTIDISCIPLINARY TEAM MEETING. ORDER FOR INPATIENT REHAB PRESCREENING OBTAINED. CM WAITING ADMISSION DETERMINATION FROM INPATIENT REHAB AT [place] [facility] INSURANCE AUTHORIZATION FOR SERVICES. Chidi Goncalves, CASE MANAGEMENT DCP- Discharge Planning Updated by [id number]: Tierney Shukla on 04/22/19 2:[address] CM RECEIVED AN ORDER TO ARRANGE FOR A VIVO 65 THRU [facility]. PATIENT REMAINS ON 9/L OXYGEN. SHE HAS [facility] MEDICARE SOLUTIONS IJNSURANCE PROVIDER. WILL NEED TO CONTACT THE APPROPRIATE [facility] STAFF ON WEDNESDAY AND HER PROVIDER TO REQUEST THIS UNIT. CM TO FOLLOW. DCP- Discharge Planning Updated by [id number]: Nora Berrios on 04/12/19 10:[address] Patient Name: DELLA BRISENO Admission Status: ER Accout number: [id number] Admission Date: 04-10-2019 : 1950 Admission Diagnosis: Attending: AC MARCELINO Current LOS: 2 Anticipated DC Date: Planned Disposition: Home Primary Insurance: [facility] MEDICARE SOLUTIONS Discharge Planning Comments: CM met with patient to complete initial dc planning assessment. CM educated patient on the CM role and verbal consent given by patient to complete assessment. Patient lives at home with her , daughter and family where she is for the most part total care. Daughter Lali states that patient at times could use walker with assist to go to restroom but would need to rest and catch her breath. At discharge patient plans to return home and feels this is a safe discharge. CM gave Lali information on some resources to help within the home. Lali stated that her father has just started having radiation treatments and she is having a difficult time taking care of both of them. CM discussed availability of home health, rehab services, and medical equipment. Lali also stated that they are suppose to be getting a hospital bed d/t her mother sliding out of the bed at home. Family will transport home. Patient has a nebulizer and home o2 ( [place] home patient ) Patient denied known discharge needs at this time. CM will continue to follow and will assist as needed with dc plans/needs. Roll Grinder: Nora Berrios DCP- Discharge Planning Updated by [email or web address]: Nora Berrios on 04/11/19 5:[address] CM wasn't able to speak to patient regarding discharge planning d/t her having to wear BiPAP continuously. No family available. CM will continue to follow and assist as needed with discharge planning / needs. DCPIA - Discharge Planning Initial Assessment Updated by [email or web address]: Nora eBrrios on 04/12/19 11:20 am * Is the patient Alert and Oriented? Yes * How many steps to enter\exit or inside your home? * PCP [facility] - BUT HAS BEEN SEEING HOUSE CALLS FOR THE LAST SEVERAL YEARS NOT GOING TO CLINIC * Pharmacy AD[facility]IR - [facility] ON [address] * Preadmission Environment Home with Family * ADLs Total Dependent * Other Equipment HOME / PORTABLE 02, NEBULIZER, 02 MONITOR, GLUCOMETER, HOSPITAL BED PENDING * List name and contact numbers for known caregivers / representatives who currently or will assist patient after discharge: LALI BRISENO - DAUGHTER- [phone] * Verbal permission to speak to the caregivers and representatives has been obtained from the patient. Yes * Please name any agencies selected above. [employer], [employer] * Additional services required to return to the preadmission environment? No * Can the patient safely return to the preadmission environment? Yes * Has this patient been hospitalized within the prior 30 days at any hospital? No Coverage Notice Reviewer: [id number] Jan Goncalves Notice Issued Date-Time: 04/24/2019 9:50 Notice Type: IM Discharge Notice Notice Delivered To: Patient Relationship to Patient: Strainer Tender Name: Delivery Method: HAND - Hand Delivered Rosa Isela Days: Prior Verbal Notification: Recipient Understood Notice: Yes Recipient Signature: Yes Med Rec Note Co-signed by Attending: Coverage Notice Comment: Last DP export: 04/24/19 4:49 pm Patient Name: DELLA BRISENO Page [id number] at 0721 All edits/amendments must be made on the electronic document DICTATION DATE: 04/25/19720 SURFBOARD DESIGNER: MARCOS 04/25/19720 RPT#: [id number] DC DATE: STATUS: ADM IN [facility] [address] [place] [address] END OF REPORT
--- NOTE | 2019-04-25 07:32 | NUR ---
REPORT RECEIVED. WILL CONTINUE WITH POC. PT CURRENTLY LYING SEMI FOWLERS. CALL LIGHT W/I REACH. NO S/S OF DISTRESS NOTED. PT CURRENTLY RESTING. RR EVEN AND UNLABORED ON 8L HIGH FLOW NC. NS INFUSING @20ML/HR VIA L.UPPER ARM MIDLINE. LEON IN PLACE AND DRAINING URINE. PT DENIES ANY NEEDS AT THIS TIME. WILL CTM.
[2019-04-25 08:25] VITALS: BP 162/62
[2019-04-25 11:36] VITALS: BP 105/78
--- NOTE | 2019-04-25 12:11 | NUR ---
PT WENT INTO UNCONTROLLED A-FIB BETWEEN 110-160. PT IS ASYMPTOMATIC AND DENIES ANY NEEDS AT THIS TIME. NO S/S OF DISTRESS NOTED. NOTIFIED JERMAINE ANDREWS. WILL CTM.
--- NOTE | 2019-04-25 14:42 | NUR ---
OT NOTE: BED MOB WITH MOD ASSIST; GOOD SITTING BALANCE; MOD ASSIST WITH TRANSFER; SET UP FOR SIMPLE GROOMING TASKS. GERALD MARTINES, OTR/L
--- NOTE | 2019-04-25 15:05 | NUR ---
OT NOTE: PT COMPLETED SITTING BALANCE AXS WITH SBA. PT COMPLETED GROOMING TASKS WITH SET UP. THANK YOU, LAURENT SAWYER
[2019-04-25 15:33] VITALS: BP 111/63
--- NOTE | 2019-04-25 16:50 | NUR ---
I have reviewed this patient and I concur with the Shift Assessment completed by the Licensed Practical Nurse today this shift.
[2019-04-25 20:00] VITALS: BP 141/67
[2019-04-26] VITALS (8 sets, daily range): BP systolic 113–176; BP diastolic 36–68
[2019-04-26 06:56] LABS: CALC OSMOLALITY 293 mosm/kg (275-300); CARBON DIOXIDE 36.3 mmol/L (21.0-32.0); CHLORIDE - SERUM 108 mmol/L (98-107); CREATININE - SERUM 0.6 mg/dL (0.6-1.3); GLUCOSE 78 mg/dL (74-106); SODIUM 148 mmol/L (136-145); UREA NITROGEN 14 mg/dL (7-18); eGFR NON AFRICAN AMERICAN > 90 mL/min (90-120)
[2019-04-26 07:13] LABS: POTASSIUM - SERUM 3.5 mmol/L (3.5-5.1)
[2019-04-26 07:45] LABS: BASOPHILS 0.1 % (0-2); EOSINOPHILS 0.5 % (0-7); HEMATOCRIT 29.1 % (36.0-48.0); HEMOGLOBIN 8.9 g/dL (12-16); IMMATURE GRANULOCYTES 0.6 % (0-5); LYMPHOCYTES 9.4 % (15-50); MCH 28.3 pg (26.0-34.0); MCHC 30.6 g/dL (31.0-37.0); MEAN PLATELET VOLUME 12.5 fL (7.4-10.4); MONOCYTES 4.7 % (2-11); NEUTROPHILS 84.7 % (40-80); RBC 3.14 10x6/uL (4.00-5.40); RDW 15.4 % (11.5-14.5); WBC 14.1 10x3/uL (4.8-10.8)
[2019-04-26 07:47] LABS: MCV 92.7 fL (80.0-100.0); PLATELET COUNT 93 10x3/uL (130-400)
[2019-04-26 10:33] LABS: PLATELET ESTIMATE DECREASED
[2019-04-26 10:37] LABS: ROULEAUX OCC
--- NOTE | 2019-04-26 10:59 | NUR ---
Nutrition Follow-up: Pt reports appetite relatively the same. Ate ~25-50% of breakfast this AM. States she had diarrhea yesterday but is now resolved; reports no BMs yet today. Refuses Glucerna. Diet: Diabetic No new wt Labs reviewed Meds reviewed Continue current diet as tolerated. Encourage PO intake. [place] food preferences within diet restrictions. RD following.
--- NOTE | 2019-04-26 11:53 | NUR ---
OT NOTE: BED MOB WITH MIN ASSIST; ABLE TO SIT ON EOB WITH GOOD BALANCE WHILE PERFORMING ADLS INCLUDING FEEDING AND SIMPLE GROOMING; MAX ASSIST TO JUAQUIN SOCKS; MOD ASSIST WITH SIT TO STAND; MIN/MOD ASSIST X 2 FOR MOBILITY X APPROX 3 FT; TRANSFER TO CHAIR WITH MOD ASSIST. GERALD MARTINES, OTR/L
--- NOTE | 2019-04-26 13:37 | NUR ---
Rehab Note- Received a voicemail from Elizabeth with [facility] stating that their emergency medical technician basic had denied the patient an inpatient acute rehab stay. A peer to peer can be set up by contacting Elizabeth at [phone] with the physician's name, phone #, & a time/date to contact for peer to peer- needs to be arranged by 04/27/19 @ 9168. Spoke to MARYA Adams. Thank you for this referral! Emily Blanc RN Clinical Liaison, [facility] Rehab
--- NOTE | 2019-04-26 14:57 | MORECARE ---
CASE MANAGEMENT DISCHARGE SUMMARY PATIENT: DELLA BRISENO UNIT: [id number] ADM DATE: 04/10/19 AGE: 68 : [birth year] SEX: F ROOM/BED: D.4953 AUTHOR: FISH,DOC PHYSICIAN: REFERRING PHYSICIAN: AC MARCELINO MD DATE OF SERVICE: 04/26/19 Discharge Plan Patient Name: DELLA BRISENO Facility: [facility]:[place] : 1950 Planned Disposition: Senior Care Facility Anticipated Discharge Date: Discharge Date: Expected LOS: Initial Reviewer: [id number] Initial Review Date: 04/12/2019 Generated: 04/26/19 3:56 pm DCP- Discharge Planning Updated by [email or web address]: Chidi Goncalves on 04/24/19 4:[address] Patient Name: DELLA BRISENO Encounter No: [id number] : 1950 Primary Insurance: [facility] MEDICARE SOLUTIONS Anticipated DC Date: Planned Disposition: Inpatient Rehab External Planned Provider: [facility] INPATIENT REHAB DCP follow-up note: CM RECEIVED REQUEST TO SPEAK TO PT IN ROOM. BEDSIDE NURSE DOES NOT KNOW WHY PT WANTS TO SEE CM, BUT PT HAS REFUSED ALL LABS THIS MORNING. CM MET WITH PT IN ROOM. PT INFORMED CM THAT DR. COBIAN TOLD HER SHE IS GOING TO REHAB AT [facility] AND WANTED TO KNOW PROGRESS OF THIS. CM EXPLAINED THAT NO ORDERS HAD BEEN ENTERED FOR INPATIENT REHAB PRESCREENING OF YET AND THAT PT'S INSURANCE WOULD HAVE TO APPROVE REHAB. CM EXPLAINED THAT PT WOULD NEED TO BE ABLE TO TOLERATE THREE HOURS OF PROGRESSIVE THERAPY PER DAY. PT STATES SHE CAN DO IT. PT'S PLAN AFTER REHAB IS TO DISCHARGE HOME WHERE SHE WAS INDEPENDENT IN HER CARE PRIOR TO GETTING SICK. CM DISCUSSED POSSIBLITY OF INSURANCE DECLINING INPATIENT, DISCUSSED AVAILABLE LONG-TERM FACLITIES, PROVIDED LISTING. PT ASKED CM TO CALL HER DAUGHTER, PATRICIA. CM CALLED PATRICIA, , LEFT MESSAGE ASKING FOR RETURN CALL. IMPORTANT MESSAGE FROM MEDICARE PROVIDED AND EXPLAINED. CM NOTIFIED CHANELLE OF INPATIENT REHAB, DR. MARCELINO AND DAVID BRAXTON IN MULTIDISCIPLINARY TEAM MEETING. ORDER FOR INPATIENT REHAB PRESCREENING OBTAINED. CM WAITING ADMISSION DETERMINATION FROM INPATIENT REHAB AT [place] [facility] INSURANCE AUTHORIZATION FOR SERVICES. Chidi Goncalves, CASE MANAGEMENT DCP- Discharge Planning Updated by [email or web address]: Tierney Shukla on 04/22/19 2:[address] CM RECEIVED AN ORDER TO ARRANGE FOR A VIVO 65 THRU [facility]. PATIENT REMAINS ON 9/L OXYGEN. SHE HAS [facility] MEDICARE SOLUTIONS IJNSURANCE PROVIDER. WILL NEED TO CONTACT THE APPROPRIATE [facility] STAFF ON WEDNESDAY AND HER PROVIDER TO REQUEST THIS UNIT. CM TO FOLLOW. DCP- Discharge Planning Updated by [id number]: Nora Berrios on 04/12/19 10:[address] Patient Name: DELLA BRISENO Admission Status: ER Accout number: [id number] Admission Date: 04-10-2019 : 1950 Admission Diagnosis: Attending: AC MARCELINO Current LOS: 2 Anticipated DC Date: Planned Disposition: Home Primary Insurance: [facility] MEDICARE SOLUTIONS Discharge Planning Comments: CM met with patient to complete initial dc planning assessment. CM educated patient on the CM role and verbal consent given by patient to complete assessment. Patient lives at home with her , daughter and family where she is for the most part total care. Daughter Lali states that patient at times could use walker with assist to go to restroom but would need to rest and catch her breath. At discharge patient plans to return home and feels this is a safe discharge. CM gave Lali information on some resources to help within the home. Lali stated that her father has just started having radiation treatments and she is having a difficult time taking care of both of them. CM discussed availability of home health, rehab services, and medical equipment. Lali also stated that they are suppose to be getting a hospital bed d/t her mother sliding out of the bed at home. Family will transport home. Patient has a nebulizer and home o2 ( [place] home patient ) Patient denied known discharge needs at this time. CM will continue to follow and will assist as needed with dc plans/needs. Personnel Clerks Supervisor: Nora Berrios DCP- Discharge Planning Updated by [email or web address]: Nora Berrios on 04/11/19 5:[address] CM wasn't able to speak to patient regarding discharge planning d/t her having to wear BiPAP continuously. No family available. CM will continue to follow and assist as needed with discharge planning / needs. DCPIA - Discharge Planning Initial Assessment Updated by [email or web address]: Nora Berrios on 04/12/19 11:20 am * Is the patient Alert and Oriented? Yes * How many steps to enter\exit or inside your home? * PCP [facility] - BUT HAS BEEN SEEING HOUSE CALLS FOR THE LAST SEVERAL YEARS NOT GOING TO CLINIC * Pharmacy ADITIR - [facility] ON [address] * Preadmission Environment Home with Family * ADLs Total Dependent * Other Equipment HOME / PORTABLE 02, NEBULIZER, 02 MONITOR, GLUCOMETER, HOSPITAL BED PENDING * List name and contact numbers for known caregivers / representatives who currently or will assist patient after discharge: LALI BRISENO - DAUGHTER- [phone] * Verbal permission to speak to the caregivers and representatives has been obtained from the patient. Yes * Please name any agencies selected above. [employer], [employer] * Additional services required to return to the preadmission environment? No * Can the patient safely return to the preadmission environment? Yes * Has this patient been hospitalized within the prior 30 days at any hospital? No External Providers [facility] Next Contact Date: 04/26/2019 Service Request Date: Service Type: Resolution: Reviewer: Comments: Coverage Notice Reviewer: [id number] - Chidi Goncalves Notice Issued Date-Time: 04/24/2019 9:50 Notice Type: IM Discharge Notice Notice Delivered To: Patient Relationship to Patient: Corsage Maker Name: Delivery Method: HAND - Hand Delivered Rosa Isela Days: Prior Verbal Notification: Recipient Understood Notice: Yes Recipient Signature: Yes Med Rec Note Co-signed by Attending: Coverage Notice Comment: Last DP export: 04/25/19 6:21 a Patient Name: DELLA BRISENO Page [id number] at 1457 All edits/amendments must be made on the electronic document DICTATION DATE: 04/26/191455 NERVE SPECIALIST: MARCOS 04/26/191455 RPT#: [id number] DC DATE: STATUS: ADM IN [facility] [address] [place] [address] END OF REPORT
--- NOTE | 2019-04-26 15:04 | MORECARE ---
CASE MANAGEMENT DISCHARGE SUMMARY PATIENT: DELLA BRISENO UNIT: [id number] ADM DATE: 04/10/19 AGE: 68 : [birth year] SEX: F ROOM/BED: D.9370 AUTHOR: FISH,DOC PHYSICIAN: REFERRING PHYSICIAN: AC MARCELINO MD DATE OF SERVICE: 04/26/19 Discharge Plan Patient Name: DELLA BRISENO Facility: [facility]:[place] : 1950 Planned Disposition: Senior Living Facility Anticipated Discharge Date: Discharge Date: Expected LOS: Initial Reviewer: [id number] Initial Review Date: 04/12/2019 Generated: 04/26/19 4:04 pm Comments DCP- Discharge Planning Updated by [email or web address]: Chidi Goncalves on 04/26/19 1:[address] Patient Name: DELLA BRISENO Encounter No: [id number] : 1950 Primary Insurance: [facility] [employer] Anticipated DC Date: Planned Disposition: Senior Living Facility External Planned Provider: TO BE DETERMINED DCP follow-up note: CM RECEIVED CALL FROM CHANELLE OF INPATIENT REHAB WHO INFORMED CM THAT PT'S INSURANCE DECLINED INPATIENT REHAB AND PROVIDED PEER TO PEER INSTRUCTIONS IF THE PHYSICIAN WISHES TO APPEAL. CM NOTIFIED DAVID BRAXTON AND DR. MARCELINO, BOTH AGREE FOR CUSTODIAL REHAB. CM MET WITH PT IN ROOM AND DISCUSSED INSURANCE DECLINATION OF INPATIENT REHAB, DISCUSSED AVAILABILITY OF CUSTODIAL REHAB AND PROVIDERS. PT REPORTS STILL HAVING INFORMATION ON PROVIDERS GIVEN TO HER BY CM AND PT'S DAUGHTER TOOK IT WITH HER. PT STATES SHE WANTS TO TALK TO HER DAUGHTER WHO WILL BE HERE TODAY SOMETIME AND PT WILL LET CM KNOW WHICH FACILITIES THEY CHOOSE. CHOICE FORM WITH CM CONTACT INFORMATION LEFT WITH PT IN ROOM. CM DISCUSSED VIVO 65 ORDER, PT WOULD LIKE CM TO CALL [facility] FIRST AND HAS NO PREFERENCE ON PROVIDER IF [facility] CANNOT PROVIDE THE MACHINE. IMPORTANT MESSAGE FROM MEDICARE PROVIDED AND EXPLAINED. CM REVIEWED CHART AND ORDER FOR VIVO 65 FOR DISHCHARGE. CM CALLED AND SPOKE TO GERALD OF [facility], THEY DO NOT PROVIDE VIVO 65, SUGGESTED TRILOGY OR ASTRAL MACHINES. CM CALLED [facility], , SPOKE TO LUCERO WHO INFORMED CM THAT THEY DO PROVIDE THE VIVO 65. CM FAXED ORDER AND SUPPORTING DOCUMENTS TO [employer] AT [phone]. CM WAITING INSURANCE APPROVAL OF VIVO 65 MACHINE THROUGH [employer]. CM WAITING PT AND FAMILY DECISION REGARDING CUSTODIAL FACILITY SELECTION. CM WAITING PT'S OXYGEN LEVEL TO GET DOWN TO ACCEPTABLE LEVEL FOR DISCHARGE TO REHAB. Chidi Goncalves, CASE MANAGEMENT DCP- Discharge Planning Updated by [id number]: Chidi Goncalves on 04/24/19 4:[address] Patient Name: DELLA BRISENO Encounter No: [id number] : 1950 Primary Insurance: [facility] [employer] Anticipated DC Date: Planned Disposition: Inpatient Rehab External Planned Provider: [facility] DCP follow-up note: CM RECEIVED REQUEST TO SPEAK TO PT IN ROOM. BEDSIDE NURSE DOES NOT KNOW WHY PT WANTS TO SEE CM, BUT PT HAS REFUSED ALL LABS THIS MORNING. CM MET WITH PT IN ROOM. PT INFORMED CM THAT DR. COBIAN TOLD HER SHE IS GOING TO REHAB AT [facility] AND WANTED TO KNOW PROGRESS OF THIS. CM EXPLAINED THAT NO ORDERS HAD BEEN ENTERED FOR INPATIENT REHAB PRESCREENING OF YET AND THAT PT'S INSURANCE WOULD HAVE TO APPROVE REHAB. CM EXPLAINED THAT PT WOULD NEED TO BE ABLE TO TOLERATE THREE HOURS OF PROGRESSIVE THERAPY PER DAY. PT STATES SHE CAN DO IT. PT'S PLAN AFTER REHAB IS TO DISCHARGE HOME WHERE SHE WAS INDEPENDENT IN HER CARE PRIOR TO GETTING SICK. CM DISCUSSED POSSIBLITY OF INSURANCE DECLINING INPATIENT, DISCUSSED AVAILABLE CUSTODIAL FACLITIES, PROVIDED LISTING. PT ASKED CM TO CALL HER DAUGHTER, PATRICIA. CM CALLED PATRICIA, , LEFT MESSAGE ASKING FOR RETURN CALL. IMPORTANT MESSAGE FROM MEDICARE PROVIDED AND EXPLAINED. CM NOTIFIED CHANELLE OF INPATIENT REHAB, DR. MARCELINO AND DAVID BRAXTON IN MULTIDISCIPLINARY TEAM MEETING. ORDER FOR INPATIENT REHAB PRESCREENING OBTAINED. CM WAITING ADMISSION DETERMINATION FROM INPATIENT REHAB AT [facility] INSURANCE AUTHORIZATION FOR SERVICES. Chidi Goncalves, CASE MANAGEMENT DCP- Discharge Planning Updated by [id number]: Tierney Shukla on 04/22/19 2:[address] CM RECEIVED AN ORDER TO ARRANGE FOR A VIVO 65 THRU [facility]. PATIENT REMAINS ON 9/L OXYGEN. SHE HAS [facility] [employer] [employer] IJNSURANCE PROVIDER. WILL NEED TO CONTACT THE APPROPRIATE [facility] STAFF ON WEDNESDAY AND HER PROVIDER TO REQUEST THIS UNIT. CM TO FOLLOW. DCP- Discharge Planning Updated by [email or web address]: Nora Berrios on 04/12/19 10:[address] Patient Name: DELLA BRISENO Admission Status: ER Accout number: [id number] Admission Date: 04-10-2019 : 1950 Admission Diagnosis: Attending: AC MARCELINO Current LOS: 2 Anticipated DC Date: Planned Disposition: Home Primary Insurance: [facility] [employer] [employer] Discharge Planning Comments: CM met with patient to complete initial dc planning assessment. CM educated patient on the CM role and verbal consent given by patient to complete assessment. Patient lives at home with her , daughter and family where she is for the most part total care. Daughter Lali states that patient at times could use walker with assist to go to restroom but would need to rest and catch her breath. At discharge patient plans to return home and feels this is a safe discharge. CM gave Lali information on some resources to help within the home. Lali stated that her father has just started having radiation treatments and she is having a difficult time taking care of both of them. CM discussed availability of home health, rehab services, and medical equipment. Lali also stated that they are suppose to be getting a hospital bed d/t her mother sliding out of the bed at home. Family will transport home. Patient has a nebulizer and home o2 ( [place] home patient ) Patient denied known discharge needs at this time. CM will continue to follow and will assist as needed with dc plans/needs. Thermostat Machine Tender: Nora Berrios DCP- Discharge Planning Updated by [email or web address]: Nora Berrios on 04/11/19 5:[address] CM wasn't able to speak to patient regarding discharge planning d/t her having to wear BiPAP continuously. No family available. CM will continue to follow and assist as needed with discharge planning / needs. DCPIA - Discharge Planning Initial Assessment Updated by [email or web address]: Nora Berrios on 04/12/19 11:20 am * Is the patient Alert and Oriented? Yes * How many steps to enter\exit or inside your home? * PCP CECILIA RICO HAS BEEN SEEING HOUSE CALLS FOR THE LAST SEVERAL YEARS NOT GOING TO CLINIC * [facility]acy [facility] [address] * Preadmission Environment Home with Family * ADLs Total Dependent * Other Equipment HOME / PORTABLE 02, NEBULIZER, 02 MONITOR, GLUCOMETER, HOSPITAL BED PENDING * List name and contact numbers for known caregivers / representatives who currently or will assist patient after discharge: LALI BRISENO - DAUGHTER- [phone] * Verbal permission to speak to the caregivers and representatives has been obtained from the patient. Yes * Please name any agencies selected above. [facility] [employer], [employer] [facility] * Additional services required to return to the preadmission environment? No * Can the patient safely return to the preadmission environment? Yes * Has this patient been hospitalized within the prior 30 days at any hospital? No Coverage Notice Reviewer: THAD Goncalves Notice Issued Date-Time: 04/24/2019 9:50 Notice Type: IM Discharge Notice Notice Delivered To: Patient Relationship to Patient: Mergers And Acquisitions Manager Name: Delivery Method: HAND - Hand Delivered Rosa Isela Days: Prior Verbal Notification: Recipient Understood Notice: Yes Recipient Signature: Yes Med Rec Note Co-signed by Attending: Coverage Notice Comment: Reviewer: THAD Goncalves Notice Issued Date-Time: 04/26/2019 9:35 Notice Type: Patient Choice Letter Notice Delivered To: Patient Relationship to Patient: Mergers And Acquisitions Manager Name: Delivery Method: HAND - Hand Delivered Rosa Isela Days: Prior Verbal Notification: Recipient Understood Notice: Yes Recipient Signature: Yes Med Rec Note Co-signed by Attending: Coverage Notice Comment: [facility] OR NO MEDICAL EQUIPMENT PROVIDER PREFERENCE. Reviewer: HTAD Goncalves Notice Issued Date-Time: 04/26/2019 9:35 Notice Type: IM Discharge Notice Notice Delivered To: Patient Relationship to Patient: Mergers And Acquisitions Manager Name: Delivery Method: HAND - Hand Delivered Rosa Isela Days: Prior Verbal Notification: Recipient Understood Notice: Yes Recipient Signature: Yes Med Rec Note Co-signed by Attending: Coverage Notice Comment: Last DP export: 04/26/19 1:57 p Patient Name: DELLA BRISENO Page [id number] at 1504 All edits/amendments must be made on the electronic document DICTATION DATE: 04/26/19 1504 GEAR MILLING MACHINE SET UP OPERATOR: MARCOS 04/26/19 1504 RPT#: [id number] DC DATE: STATUS: ADM IN [facility] [address] [place] [address] END OF REPORT
--- NOTE | 2019-04-26 16:52 | MORECARE ---
CASE MANAGEMENT DISCHARGE SUMMARY PATIENT: DELLA BRISENO UNIT: [id number] ADM DATE: 04/10/19 AGE: 68 : [birth year] SEX: F ROOM/BED: D.4677 AUTHOR: FISH,DOC PHYSICIAN: REFERRING PHYSICIAN: AC MARCELINO MD DATE OF SERVICE: 04/26/19 Discharge Plan Patient Name: DELLA BRISENO Facility: [facility]:[place] : 1950 Planned Disposition: Mcfp Facility Anticipated Discharge Date: Discharge Date: Expected LOS: Initial Reviewer: [id number] Initial Review Date: 04/12/2019 Generated: 04/26/19 5:51 pm Comments DCP- Discharge Planning Updated by [email or web address]: Chidi Goncalves on 04/26/19 3:[address] Patient Name: DELLA BRISENO Encounter No: [id number] : 1950 Primary Insurance: [facility] MEDICARE SOLUTIONS Anticipated DC Date: Planned Disposition: Mcfp Facility External Planned Provider: [facility], MEDICARE REHAB BED DCP follow-up note: CM MET WITH PT AND DAUGHTER IN ROOM AT PT'S REQUEST TO DISCUSS DISCHARGE PLANNING WITH DAUGHTER. DAUGHTER REPORTS RECEIVING LIST OF NURSING REHABS, HAS DISCUSSED WITH PT AND THEY WANT [facility] FOR REHAB IT IS CLOSE TO THEIR HOMES. PT SIGNED CONSENT FOR [facility]. CM [facility] AND WAITING INSURANCE AUTHORIZATION TO SEE IF THE MACHINE CAN BE APPROVED AND DELIVERED TO HOSPITAL. CM WAITING INSURANCE APPROVAL OF VIVO 65 MACHINE THROUGH [employer]. CM TO FAX REFERRAL FOR REHAB TO [facility] SOON POSSIBLE. Chidi Goncalves, CASE SUSU DCP- Discharge Planning Updated by [id number]: Chidi Goncalves on 04/26/19 1:[address] Patient Name: DELLA BRISENO Encounter No: [id number] : 1950 Primary Insurance: [facility] MEDICARE SOLUTIONS Anticipated DC Date: Planned Disposition: Mcfp Facility External Planned Provider: TO BE DETERMINED DCP follow-up note: CM RECEIVED CALL FROM CHANELLE OF INPATIENT REHAB WHO INFORMED CM THAT PT'S INSURANCE DECLINED INPATIENT REHAB AND PROVIDED PEER TO PEER INSTRUCTIONS IF THE PHYSICIAN WISHES TO APPEAL. CM NOTIFIED DAVID BRAXTON AND DR. MARCELINO, BOTH AGREE FOR RETIREMENT REHAB. CM MET WITH PT IN ROOM AND DISCUSSED INSURANCE DECLINATION OF INPATIENT REHAB, DISCUSSED AVAILABILITY OF RETIREMENT REHAB AND PROVIDERS. PT REPORTS STILL HAVING INFORMATION ON PROVIDERS GIVEN TO HER BY CM AND PT'S DAUGHTER TOOK IT WITH HER. PT STATES SHE WANTS TO TALK TO HER DAUGHTER WHO WILL BE HERE TODAY SOMETIME AND PT WILL LET CM KNOW WHICH FACILITIES THEY CHOOSE. CHOICE FORM WITH CM CONTACT INFORMATION LEFT WITH PT IN ROOM. CM DISCUSSED VIVO 65 ORDER, PT WOULD LIKE CM TO CALL [facility] FIRST AND HAS NO PREFERENCE ON PROVIDER IF [facility] CANNOT PROVIDE THE MACHINE. IMPORTANT MESSAGE FROM MEDICARE PROVIDED AND EXPLAINED. CM REVIEWED CHART AND ORDER FOR VIVO 65 FOR DISHCHARGE. CM CALLED AND SPOKE TO GERALD OF [facility], THEY DO NOT PROVIDE VIVO 65, SUGGESTED TRILOGY OR ASTRAL MACHINES. CM CALLED [facility], , SPOKE TO LUCERO WHO INFORMED CM THAT THEY DO PROVIDE THE VIVO 65. CM FAXED ORDER AND SUPPORTING DOCUMENTS TO [facility] AT [phone]. CM WAITING INSURANCE APPROVAL OF VIVO 65 MACHINE THROUGH [employer]. CM WAITING PT AND FAMILY DECISION REGARDING RETIREMENT FACILITY SELECTION. CM WAITING PT'S OXYGEN LEVEL TO GET DOWN TO ACCEPTABLE LEVEL FOR DISCHARGE TO REHAB. Chidi Goncalves, CASE MANAGEMENT DCP- Discharge Planning Updated by [email or web address]: Chidi Goncalves on 04/24/19 4:[address] Patient Name: DELLA BRISENO Encounter No: [id number] : 1950 Primary Insurance: [facility] MEDIC[employer] SOLUTIONS Anticipated DC Date: Planned Disposition: Inpatient Rehab External Planned Provider: [facility] DCP follow-up note: CM RECEIVED REQUEST TO SPEAK TO PT IN ROOM. BEDSIDE NURSE DOES NOT KNOW WHY PT WANTS TO SEE CM, BUT PT HAS REFUSED ALL LABS THIS MORNING. CM MET WITH PT IN ROOM. PT INFORMED CM THAT DR. COBIAN TOLD HER SHE IS GOING TO REHAB AT [facility] AND WANTED TO KNOW PROGRESS OF THIS. CM EXPLAINED THAT NO ORDERS HAD BEEN ENTERED FOR INPATIENT REHAB PRESCREENING OF YET AND THAT PT'S INSURANCE WOULD HAVE TO APPROVE REHAB. CM EXPLAINED THAT PT WOULD NEED TO BE ABLE TO TOLERATE THREE HOURS OF PROGRESSIVE THERAPY PER DAY. PT STATES SHE CAN DO IT. PT'S PLAN AFTER REHAB IS TO DISCHARGE HOME WHERE SHE WAS INDEPENDENT IN HER CARE PRIOR TO GETTING SICK. CM DISCUSSED POSSIBLITY OF INSURANCE DECLINING INPATIENT, DISCUSSED AVAILABLE RETIREMENT FACLITIES, PROVIDED LISTING. PT ASKED CM TO CALL HER DAUGHTER, PATRICIA. CM CALLED PATRICIA, , LEFT MESSAGE ASKING FOR RETURN CALL. IMPORTANT MESSAGE FROM MED[employer]ARE PROVIDED AND EXPLAINED. CM NOTIFIED CHANELLE OF INPATIENT REHAB, DR. MARCELINO AND DAVID BRAXTON IN MULTIDISCIPLINARY TEAM MEETING. ORDER FOR INPATIENT REHAB PRESCREENING OBTAINED. CM WAITING ADMISSION DETERMINATION FROM INPATIENT REHAB AT [facility] INSURANCE AUTHORIZATION FOR SERVICES. Chidi Goncalves, CASE MANAGEMENT DCP- Discharge Planning Updated by [id number]: Tierney Rickettss on 04/22/19 2:[address] CM RECEIVED AN ORDER TO ARRANGE FOR A VIVO [address] THRU [facility]. PATIENT REMAINS ON 9/L OXYGEN. SHE HAS [facility] IJNSURANCE PROVIDER. WILL NEED TO CONTACT THE APPROPRIATE [facility] STAFF ON WEDNESDAY AND HER PROVIDER TO REQUEST THIS UNIT. CM TO FOLLOW. DCP- Discharge Planning Updated by [id number]: Nroa Berrios on 04/12/19 10:[address] Patient Name: DELLA BRISENO Admission Status: ER Accout number: [id number] Admission Date: 04-10-2019 : 1950 Admission Diagnosis: Attending: AC MARCELINO Current LOS: 2 Anticipated DC Date: Planned Disposition: Home Primary Insurance: [facility] MEDIC[employer] SOLUTIONS Discharge Planning Comments: CM met with patient to complete initial dc planning assessment. CM educated patient on the CM role and verbal consent given by patient to complete assessment. Patient lives at home with her , daughter and family where she is for the most part total care. Daughter Lali states that patient at times could use walker with assist to go to restroom but would need to rest and catch her breath. At discharge patient plans to return home and feels this is a safe discharge. CM gave Lali information on some resources to help within the home. Lali stated that her father has just started having radiation treatments and she is having a difficult time taking care of both of them. CM discussed availability of home health, rehab services, and medical equipment. Lali also stated that they are suppose to be getting a hospital bed d/t her mother sliding out of the bed at home. Family will transport home. Patient has a nebulizer and home o2 ( [place] home patient ) Patient denied known discharge needs at this time. CM will continue to follow and will assist as needed with dc plans/needs. National Account Executive: Nora Berrios DCP- Discharge Planning Updated by [id number]: Nora Berrios on 04/11/19 5:[address] CM wasn't able to speak to patient regarding discharge planning d/t her having to wear BiPAP continuously. No family available. CM will continue to follow and assist as needed with discharge planning / needs. DCPIA - Discharge Planning Initial Assessment Updated by [email or web address]: Nora Berrios on 04/12/19 11:20 am * Is the patient Alert and Oriented? Yes * How many steps to enter\exit or inside your home? * PCP CECILIA - TRISHA HAS BEEN SEEING HOUSE CALLS FOR THE LAST SEVERAL YEARS NOT GOING TO CLINIC * [facility]acy [facility] * Preadmission Environment Home with Family * ADLs Total Dependent * Other Equipment HOME / PORTABLE 02, NEBULIZER, 02 MONITOR, GLUCOMETER, HOSPITAL BED PENDING * List name and contact numbers for known caregivers / representatives who currently or will assist patient after discharge: LALI BRISENO - DAUGHTER- [phone] * Verbal permission to speak to the caregivers and representatives has been obtained from the patient. Yes * Please name any agencies selected above. [employer], [employer] [facility] * Additional services required to return to the preadmission environment? No * Can the patient safely return to the preadmission environment? Yes * Has this patient been hospitalized within the prior 30 days at any hospital? No Coverage Notice Reviewer: [email or web address] Goncalves Notice Issued Date-Time: 04/24/2019 9:50 Notice Type: IM Discharge Notice Notice Delivered To: Patient Relationship to Patient: Portrait Studio Photographer Name: Delivery Method: HAND - Hand Delivered Rosa Isela Days: Prior Verbal Notification: Recipient Understood Notice: Yes Recipient Signature: Yes Med Rec Note Co-signed by Attending: Coverage Notice Comment: Reviewer: [email or web address] Goncalves Notice Issued Date-Time: 04/26/2019 9:35 Notice Type: Patient Choice Letter Notice Delivered To: Patient Relationship to Patient: Portrait Studio Photographer Name: Delivery Method: HAND - Hand Delivered Rosa Isela Days: Prior Verbal Notification: Recipient Understood Notice: Yes Recipient Signature: Yes Med Rec Note Co-signed by Attending: Coverage Notice Comment: [facility] OR NO MEDICAL EQUIPMENT PROVIDER PREFERENCE. Reviewer: [email or web address] Goncalves Notice Issued Date-Time: 04/26/2019 9:35 Notice Type: IM Discharge Notice Notice Delivered To: Patient Relationship to Patient: Portrait Studio Photographer Name: Delivery Method: HAND - Hand Delivered Rosa Isela Days: Prior Verbal Notification: Recipient Understood Notice: Yes Recipient Signature: Yes Med Rec Note Co-signed by Attending: Coverage Notice Comment: Reviewer: THAD Goncalves Notice Issued Date-Time: 04/26/2019 16:35 Notice Type: Patient Choice Letter Notice Delivered To: Patient Relationship to Patient: Portrait Studio Photographer Name: Delivery Method: HAND - Hand Delivered Rosa Isela Days: Prior Verbal Notification: Recipient Understood Notice: Yes Recipient Signature: Yes Med Rec Note Co-signed by Attending: Coverage Notice Comment: RIKA ARMSTRONG Last DP export: 04/26/19 2:04 p Patient Name: DELLA BRISENO Page [id number] at 1652 All edits/amendments must be made on the electronic document DICTATION DATE: 04/26/191650 MANUFACTURING TEAM LEADER: MARCOS 04/26/191650 RPT#: [id number] DC DATE: STATUS: ADM IN [facility] [address] [place] [address] END OF REPORT
--- NOTE | 2019-04-26 17:48 | NUR ---
PATIENT IS STABLE AND VSS. PATIENT SITTING UP ON SIDE OF BED EATING DINNER. DTR AT BS. PATIENT DENIES ANY NEEDS OR PAIN. WILL CONTINUE TO MONITOR. SR UP X 2 BED IN LOW POSITION AND CALL LIGHT IN REACH.
--- NOTE | 2019-04-26 21:42 | NUR ---
PT HR SPIKED UP TO 158 ON TELEMETRY . DID A QUICK EKG ON THE PT EKG SHOW NORMAL SINUS WITH HEART RATE OF 96 AT THIS TIME. NO S/S OF DISTRESS NOTED AT THIS TIME. PT STATES HIS HEART RATE SPIKES UP SOMETIMES AND THIS HAS HAPPENED BEFORE. FSBS 144. WILL CTM. CL WITHIN REACH.
[2019-04-27] VITALS: BP 148/62
--- NOTE | 2019-04-27 01:45 | NUR ---
PT'S HEART RATE HAS HAD 2 EPISODES OF SPIKES. GOING UP TO 180BP AND A-FIB. IT STAYS UP FOR ABOUT 10 MINS THEN RETURN TO NS. PT PRESENTS WITH WITH S/S ST THIS TIME. PAGED DR. BRANNON. AWAITING CALL BACK.
--- NOTE | 2019-04-27 02:01 | NUR ---
DR. BRANNON ORDERED TO RESTART SOTALOL 80MGS BID. FIRST DOSE TO BE GIVEN NOW.
[2019-04-27 05:43] VITALS: BP 120/51
[2019-04-27 06:21] LABS: BASOPHILS 0 % (0-2); EOSINOPHILS 0.7 % (0-7); HEMATOCRIT 28.5 % (36.0-48.0); HEMOGLOBIN 8.5 g/dL (12-16); IMMATURE GRANULOCYTES 0.4 % (0-5); LYMPHOCYTES 9.2 % (15-50); MCHC 29.8 g/dL (31.0-37.0); MCV 93.8 fL (80.0-100.0); MEAN PLATELET VOLUME 10.8 fL (7.4-10.4); MONOCYTES 4.5 % (2-11); NEUTROPHILS 85.2 % (40-80); RBC 3.04 10x6/uL (4.00-5.40); RDW 15.3 % (11.5-14.5); WBC 15.3 10x3/uL (4.8-10.8)
[2019-04-27 06:42] LABS: CALC OSMOLALITY 291 mosm/kg (275-300); CALCIUM 8.7 mg/dL (8.5-10.1); CHLORIDE - SERUM 107 mmol/L (98-107); CREATININE - SERUM 0.6 mg/dL (0.6-1.3); GLUCOSE 76 mg/dL (74-106); MAGNESIUM - SERUM 1.9 mg/dL (1.8-2.4); SODIUM 147 mmol/L (136-145); UREA NITROGEN 14 mg/dL (7-18); eGFR NON AFRICAN AMERICAN > 90 mL/min (90-120)
[2019-04-27 06:46] LABS: PLATELET COUNT 161 10x3/uL (130-400)
[2019-04-27 06:52] LABS: POTASSIUM - SERUM 2.9 mmol/L (3.5-5.1)
--- NOTE | 2019-04-27 07:21 | MORECARE ---
CASE MANAGEMENT DISCHARGE SUMMARY PATIENT: DELLA BRISENO UNIT: [id number] ADM DATE: 04/10/19 AGE: 68 : 49 SEX: F ROOM/BED: D.8137 AUTHOR: FISH,DOC PHYSICIAN: REFERRING PHYSICIAN: AC MARCELINO MD DATE OF SERVICE: 04/27/19 Discharge Plan Patient Name: DELLA BRISENO Facility: [facility]:[place] : 1950 Planned Disposition: [facility] Facility Anticipated Discharge Date: Discharge Date: Expected LOS: Initial Reviewer: [id number] Initial Review Date: 04/12/2019 Generated: 04/27/19 8:21 am Comments DCP- Discharge Planning Updated by [id number]: Chidi Goncalves on 04/26/19 3:[address] Patient Name: DELLA BRISENO Encounter No: [id number] : 1950 Primary Insurance: [facility] MEDICARE SOLUTIONS Anticipated DC Date: Planned Disposition: [facility] Facility External Planned Provider: [facility], MEDICARE REHAB BED DCP follow-up note: CM MET WITH PT AND DAUGHTER IN ROOM AT PT'S REQUEST TO DISCUSS DISCHARGE PLANNING WITH DAUGHTER. DAUGHTER REPORTS RECEIVING LIST OF NURSING REHABS, HAS DISCUSSED WITH PT AND THEY WANT [facility] FOR REHAB IT IS CLOSE TO THEIR HOMES. PT SIGNED CONSENT FOR [facility]. CM [facility] NIP[facility] AND WAITING INSURANCE AUTHORIZATION TO SEE IF THE MACHINE CAN BE APPROVED AND DELIVERED TO HOSPITAL. CM WAITING INSURANCE APPROVAL OF VIVO 65 MACHINE THROUGH [employer]. CM TO FAX REFERRAL FOR REHAB TO [facility] SOON POSSIBLE. Chidi Goncalves, CASE SUSU DCP- Discharge Planning Updated by [id number]: Chidi Goncalves on 04/26/19 1:[address] Patient Name: DELLA BRISENO Encounter No: [id number] : 1950 Primary Insurance: [facility] MEDIC[facility] SOLUTIONS Anticipated DC Date: Planned Disposition: [facility] Facility External Planned Provider: TO BE DETERMINED DCP follow-up note: CM RECEIVED CALL FROM CHANELLE OF INPATIENT REH[facility] WHO INFORMED CM THAT PT'S INSURANCE DECLINED INPATIENT REHAB AND PROVIDED PEER TO PEER INSTRUCTIONS IF THE PHYSICIAN WISHES TO APPEAL. CM NOTIFIED DAVID BRAXTON AND DR. MARCELINO, BOTH AGREE FOR [facility]. CM MET WITH PT IN ROOM AND DISCUSSED INSURANCE DECLINATION OF INPATIENT REHAB, DISCUSSED AVAILABILITY OF [facility] AND PROVIDERS. PT REPORTS STILL HAVING INFORMATION ON PROVIDERS GIVEN TO HER BY CM AND PT'S DAUGHTER TOOK IT WITH HER. PT STATES SHE WANTS TO TALK TO HER DAUGHTER WHO WILL BE HERE TODAY SOMETIME AND PT WILL LET CM KNOW WHICH FACILITIES THEY CHOOSE. CHOICE FORM WITH CM CONTACT INFORMATION LEFT WITH PT IN ROOM. CM DISCUSSED VIVO 65 ORDER, PT WOULD LIKE CM TO CALL [facility] FIRST AND HAS NO PREFERENCE ON PROVIDER IF [facility] CANNOT PROVIDE THE MACHINE. IMPORTANT MESSAGE FROM MEDICARE PROVIDED AND EXPLAINED. CM REVIEWED CHART AND ORDER FOR VIVO 65 FOR DISHCHARGE. CM CALLED AND SPOKE TO GERALD OF [facility], THEY DO NOT PROVIDE VIVO 65, SUGGESTED TRILOGY OR ASTRAL MACHINES. CM CALLED [employer], , SPOKE TO LUCERO WHO INFORMED CM THAT THEY DO PROVIDE THE VIVO 65. CM FAXED ORDER AND SUPPORTING DOCUMENTS TO [employer] AT [phone]. CM WAITING INSURANCE APPROVAL OF VIVO 65 MACHINE THROUGH [employer]. CM WAITING PT AND FAMILY DECISION REGARDING [facility] FACILITY SELECTION. CM WAITING PT'S OXYGEN LEVEL TO GET DOWN TO ACCEPTABLE LEVEL FOR DISCHARGE TO REHAB. Chidi Goncalves, CASE MANAGEMENT DCP- Discharge Planning Updated by [id number]: Chidi Goncalves on 04/24/19 4:[address] Patient Name: DELLA BRISENO Encounter No: [id number] : 1950 Primary Insurance: [facility] MEDICARE SOLUTIONS Anticipated DC Date: Planned Disposition: Inpatient Rehab External Planned Provider: [facility] DCP follow-up note: CM RECEIVED REQUEST TO SPEAK TO PT IN ROOM. BEDSIDE NURSE DOES NOT KNOW WHY PT WANTS TO SEE CM, BUT PT HAS REFUSED ALL LABS THIS MORNING. CM MET WITH PT IN ROOM. PT INFORMED CM THAT DR. COBIAN TOLD HER SHE IS GOING TO REHAB AT [facility] AND WANTED TO KNOW PROGRESS OF THIS. CM EXPLAINED THAT NO ORDERS HAD BEEN ENTERED FOR INPATIENT REHAB PRESCREENING OF YET AND THAT PT'S INSURANCE WOULD HAVE TO APPROVE REHAB. CM EXPLAINED THAT PT WOULD NEED TO BE ABLE TO TOLERATE THREE HOURS OF PROGRESSIVE THERAPY PER DAY. PT STATES SHE CAN DO IT. PT'S PLAN AFTER REHAB IS TO DISCHARGE HOME WHERE SHE WAS INDEPENDENT IN HER CARE PRIOR TO GETTING SICK. CM DISCUSSED POSSIBLITY OF INSURANCE DECLINING INPATIENT, DISCUSSED AVAILABLE [facility] FACLITIES, PROVIDED LISTING. PT ASKED CM TO CALL HER DAUGHTER, PATRICIA. CM CALLED PATRICIA, , LEFT MESSAGE ASKING FOR RETURN CALL. IMPORTANT MESSAGE FROM MEDICARE PROVIDED AND EXPLAINED. CM NOTIFIED CHANELLE OF INPATIENT REHAB, DR. MARCELINO AND DAVID BRAXTON IN MULTIDISCIPLINARY TEAM MEETING. ORDER FOR INPATIENT REHAB PRESCREENING OBTAINED. CM WAITING ADMISSION DETERMINATION FROM INPATIENT REHAB AT [facility] INSURANCE AUTHORIZATION FOR SERVICES. Chidi Goncalves, CASE MANAGEMENT DCP- Discharge Planning Updated by [id number]: Tierney Rickettss on 04/22/19 2:[address] CM RECEIVED AN ORDER TO ARRANGE FOR A VIVO 65 THRU [facility]. PATIENT REMAINS ON 9/L OXYGEN. SHE HAS [facility] MED[facility] SOLUTIONS IJNSURANCE PROVIDER. WILL NEED TO CONTACT THE APPROPRIATE [facility] STAFF ON WEDNESDAY AND HER PROVIDER TO REQUEST THIS UNIT. CM TO FOLLOW. DCP- Discharge Planning Updated by [email or web address]: Nora Berrios on 04/12/19 10:[address] Patient Name: DELLA BRISENO Admission Status: ER Accout number: [id number] Admission Date: 04-10-2019 : 1950 Admission Diagnosis: Attending: AC MARCELINO Current LOS: 2 Anticipated DC Date: Planned Disposition: Home Primary Insurance: [facility] MEDICARE SOLUTIONS Discharge Planning Comments: CM met with patient to complete initial dc planning assessment. CM educated patient on the CM role and verbal consent given by patient to complete assessment. Patient lives at home with her , daughter and family where she is for the most part total care. Daughter Lali states that patient at times could use walker with assist to go to restroom but would need to rest and catch her breath. At discharge patient plans to return home and feels this is a safe discharge. CM gave Lali information on some resources to help within the home. Lali stated that her father has just started having radiation treatments and she is having a difficult time taking care of both of them. CM discussed availability of home health, rehab services, and medical equipment. Lali also stated that they are suppose to be getting a hospital bed d/t her mother sliding out of the bed at home. Family will transport home. Patient has a nebulizer and home o2 ( [facility] home patient ) Patient denied known discharge needs at this time. CM will continue to follow and will assist as needed with dc plans/needs. Hat Parts Cutter Machine: Nora Berrios DCP- Discharge Planning Updated by [id number]: Nora Berrios on 04/11/19 5:[address] CM wasn't able to speak to patient regarding discharge planning d/t her having to wear BiPAP continuously. No family available. CM will continue to follow and assist as needed with discharge planning / needs. DCPIA - Discharge Planning Initial Assessment Updated by [id number]: Nora Berrios on 04/12/19 11:20 am * Is the patient Alert and Oriented? Yes * How many steps to enter\exit or inside your home? * PCP CECIL[facility] - BUT HAS BEEN SEEING HOUSE CALLS FOR THE LAST SEVERAL YEARS NOT GOING TO CLINIC * [facility]acy [facility] * Preadmission Environment Home with Family * ADLs Total Dependent * Other Equipment HOME / PORTABLE 02, NEBULIZER, 02 MONITOR, GLUCOMETER, HOSPITAL BED PENDING * List name and contact numbers for known caregivers / representatives who currently or will assist patient after discharge: LALI BRISENO - DAUGHTER- [phone] * Verbal permission to speak to the caregivers and representatives has been obtained from the patient. Yes * Please name any agencies selected above. [facility] [employer], [employer] * Additional services required to return to the preadmission environment? No * Can the patient safely return to the preadmission environment? Yes * Has this patient been hospitalized within the prior 30 days at any hospital? No External Providers External Provider: [facility] Next Contact Date: 04/27/2019 Service Request Date: Service Type: Resolution: Reviewer: Comments: Coverage Notice Reviewer: [id number] Goncalves Notice Issued Date-Time: 04/24/2019 9:50 Notice Type: IM Discharge Notice Notice Delivered To: Patient Relationship to Patient: Piano Tuner Name: Delivery Method: HAND - Hand Delivered Rosa Isela Days: Prior Verbal Notification: Recipient Understood Notice: Yes Recipient Signature: Yes Med Rec Note Co-signed by Attending: Coverage Notice Comment: Reviewer: [email or web address] Goncalves Notice Issued Date-Time: 04/26/2019 9:35 Notice Type: Patient Choice Letter Notice Delivered To: Patient Relationship to Patient: Piano Tuner Name: Delivery Method: HAND - Hand Delivered Rosa Isela Days: Prior Verbal Notification: Recipient Understood Notice: Yes Recipient Signature: Yes Med Rec Note Co-signed by Attending: Coverage Notice Comment: [facility] OR NO MEDICAL EQUIPMENT PROVIDER PREFERENCE. Reviewer: THAD Goncalves Notice Issued Date-Time: 04/26/2019 9:35 Notice Type: IM Discharge Notice Notice Delivered To: Patient Relationship to Patient: Piano Tuner Name: Delivery Method: HAND - Hand Delivered Rosa Isela Days: Prior Verbal Notification: Recipient Understood Notice: Yes Recipient Signature: Yes Med Rec Note Co-signed by Attending: Coverage Notice Comment: Reviewer: THAD Goncalves Notice Issued Date-Time: 04/26/2019 16:35 Notice Type: Patient Choice Letter Notice Delivered To: Patient Relationship to Patient: Piano Tuner Name: Delivery Method: HAND - Hand Delivered Rosa Isela Days: Prior Verbal Notification: Recipient Understood Notice: Yes Recipient Signature: Yes Med Rec Note Co-signed by Attending: Coverage Notice Comment: TYSHAWN Galdamez DP export: 04/26/19 3:52 p Patient Name: DELLA BRISENO Page 36415 at 0721 All edits/amendments must be made on the electronic document DICTATION DATE: 04/27/19720 TREER: MARCOS 04/27/19720 RPT#: [id number] DC DATE: STATUS: ADM IN [facility] [address] [place] [address] END OF REPORT
--- NOTE | 2019-04-27 07:25 | NUR ---
REPORT RECEIVED. WILL CONTINUE WITH POC. PT CURRENTLY LYING SEMI FOWLERS. CALL LIGHT W/I REACH. PT CURRENTLY ON BIPAP. RR EVEN AND UNLABORED. NS INFUSING @[facility] VIA L.MIDLINE. LEON IN PLACE AND DRAINING URINE. NO S/S OF DISTRESS NOTED. WILL CTM.
--- NOTE | 2019-04-27 08:12 | MORECARE ---
CASE MANAGEMENT DISCHARGE SUMMARY PATIENT: DELLA BRISENO UNIT: [id number] ADM DATE: 04/10/19 AGE: 68 : 49 SEX: F ROOM/BED: D.2261 AUTHOR: FISH,DOC PHYSICIAN: REFERRING PHYSICIAN: AC MARCELINO MD DATE OF SERVICE: 04/27/19 Discharge Plan Patient Name: DELLA BRISENO Facility: [facility]:[place] : 1950 Planned Disposition: Residential Facility Anticipated Discharge Date: Discharge Date: Expected LOS: Initial Reviewer: [id number] Initial Review Date: 04/12/2019 Generated: 04/27/19 9:12 am Comments DCP- Discharge Planning Updated by [id number]: Chidi Goncalves on 04/27/19 7:[address] Patient Name: DELLA BRISENO Encounter No: [id number] : 1950 Primary Insurance: [facility] MEDICARE SOLUTIONS Anticipated DC Date: Planned Disposition: Residential Facility External Planned Provider: [facility], MEDICARE REHAB BED DCP follow-up note: CM CONTACTED [facility], , NOTIFIED OF REFERRAL FOR REHAB SERVICES. CM FAXED REFERRAL TO [facility]IA [employer] AT [phone]. CM WAITING MEDICAL STABILITY FOR REHAB. CM WAITING INSURANCE APPROVAL OF VIVO 65 MACHINE THROUGH [employer]. CM WAITING [facility]ER[facility] INSURANCE AUTHORIZATION FROM PT'S INSURANCE FOR PENITENTIARY REHAB. Chidi Goncalves, KIMBERLEY CRISTOBAL DCP- Discharge Planning Updated by [id number]: Chidi Goncalves on 04/26/19 3:[address] Patient Name: DELLA BRISENO Encounter No: [id number] : 1950 Primary Insurance: [facility] MEDIC[facility] SOLUTIONS Anticipated DC Date: Planned Disposition: Residential Facility External Planned Provider: [facility], MEDICARE REHAB BED DCP follow-up note: CM MET WITH PT AND DAUGHTER IN ROOM AT PT'S REQUEST TO DISCUSS DISCHARGE PLANNING WITH DAUGHTER. DAUGHTER REPORTS RECEIVING LIST OF NURSING REHABS, HAS DISCUSSED WITH PT AND THEY WANT [facility] FOR REHAB IT IS CLOSE TO THEIR HOMES. PT SIGNED CONSENT FOR [facility]. CM EXPLAINED REFERRAL TO [facility] FOR VIVO 65 NIPPV AND WAITING INSURANCE AUTHORIZATION TO SEE IF THE MACHINE CAN BE APPROVED AND DELIVERED TO HOSPITAL. CM WAITING INSURANCE APPROVAL OF VIVO 65 MACHINE THROUGH [employer]. CM TO FAX REFERRAL FOR REHAB TO [facility] SOON POSSIBLE. Chidi Goncalves, CASE MANAGEMENT DCP- Discharge Planning Updated by [id number]: Chidi Goncalves on 04/26/19 1:[address] Patient Name: DELLA BRISENO Encounter No: [id number] : 1950 Primary Insurance: [facility] MEDICARE SOLUTIONS Anticipated DC Date: Planned Disposition: Residential Facility External Planned Provider: TO BE DETERMINED DCP follow-up note: CM RECEIVED CALL FROM CHANELLE OF INPATIENT REHAB WHO INFORMED CM THAT PT'S INSURANCE DECLINED INPATIENT REHAB AND PROVIDED PEER TO PEER INSTRUCTIONS IF THE PHYSICIAN WISHES TO APPEAL. CM NOTIFIED DAVID BRAXTON AND DR. MARCELINO, BOTH AGREE FOR PENITENTIARY REHAB. CM MET WITH PT IN ROOM AND DISCUSSED INSURANCE DECLINATION OF INPATIENT REHAB, DISCUSSED AVAILABILITY OF PENITENTIARY REHAB AND PROVIDERS. PT REPORTS STILL HAVING INFORMATION ON PROVIDERS GIVEN TO HER BY CM AND PT'S DAUGHTER TOOK IT WITH HER. PT STATES SHE WANTS TO TALK TO HER DAUGHTER WHO WILL BE HERE TODAY SOMETIME AND PT WILL LET CM KNOW WHICH FACILITIES THEY CHOOSE. CHOICE FORM WITH CM CONTACT INFORMATION LEFT WITH PT IN ROOM. CM DISCUSSED VIVO 65 ORDER, PT WOULD LIKE CM TO CALL [facility] FIRST AND HAS NO PREFERENCE ON PROVIDER IF [facility] CANNOT PROVIDE THE MACHINE. IMPORTANT MESSAGE FROM MEDICARE PROVIDED AND EXPLAINED. CM REVIEWED CHART AND ORDER FOR VIVO 65 FOR DISHCHARGE. CM CALLED AND SPOKE TO GERALD OF [facility], THEY DO NOT PROVIDE VIVO 65, SUGGESTED TRILOGY OR ASTRAL MACHINES. CM CALLED [employer], , SPOKE TO LUCERO WHO INFORMED CM THAT THEY DO PROVIDE THE VIVO 65. CM FAXED ORDER AND SUPPORTING DOCUMENTS TO [employer] AT [phone]. CM WAITING INSURANCE APPROVAL OF VIVO 65 MACHINE THROUGH [employer]. CM WAITING PT AND FAMILY DECISION REGARDING PENITENTIARY FACILITY SELECTION. CM WAITING PT'S OXYGEN LEVEL TO GET DOWN TO ACCEPTABLE LEVEL FOR DISCHARGE TO REHAB. Chidi Goncalves, CASE MANAGEMENT DCP- Discharge Planning Updated by [id number]: Chidi Goncalves on 04/24/19 4:[address] Patient Name: DELLA BRISENO Encounter No: [id number] : 1950 Primary Insurance: [facility] MEDICARE [employer] Anticipated DC Date: Planned Disposition: Inpatient Rehab External Planned Provider: [facility] INPATIENT REH[facility] DCP follow-up note: CM RECEIVED REQUEST TO SPEAK TO PT IN ROOM. BEDSIDE NURSE DOES NOT KNOW WHY PT WANTS TO SEE CM, BUT PT HAS REFUSED ALL LABS THIS MORNING. CM MET WITH PT IN ROOM. PT INFORMED CM THAT DR. COBIAN TOLD HER SHE IS GOING TO REHAB AT [facility] AND WANTED TO KNOW PROGRESS OF THIS. CM EXPLAINED THAT NO ORDERS HAD BEEN ENTERED FOR INPATIENT REHAB PRESCREENING OF YET AND THAT PT'S INSURANCE WOULD HAVE TO APPROVE REHAB. CM EXPLAINED THAT PT WOULD NEED TO BE ABLE TO TOLERATE THREE HOURS OF PROGRESSIVE THERAPY PER DAY. PT STATES SHE CAN DO IT. PT'S PLAN AFTER REHAB IS TO DISCHARGE HOME WHERE SHE WAS INDEPENDENT IN HER CARE PRIOR TO GETTING SICK. CM DISCUSSED POSSIBLITY OF INSURANCE DECLINING INPATIENT, DISCUSSED AVAILABLE PENITENTIARY FACLITIES, PROVIDED LISTING. PT ASKED CM TO CALL HER DAUGHTER, PATRICIA. CM CALLED PATRICIA, , LEFT MESSAGE ASKING FOR RETURN CALL. IMPORTANT MESSAGE FROM MEDICARE PROVIDED AND EXPLAINED. CM NOTIFIED CHANELLE OF INPATIENT REHAB, DR. MARCELINO AND DAVID BRAXTON IN MULTIDISCIPLINARY TEAM MEETING. ORDER FOR INPATIENT REHAB PRESCREENING OBTAINED. CM WAITING ADMISSION DETERMINATION FROM INPATIENT REHAB AT [facility] INSURANCE AUTHORIZATION FOR SERVICES. Chidi Goncalves, CASE MANAGEMENT DCP- Discharge Planning Updated by [id number]: Tierney Shukla on 04/22/19 2:[address] CM RECEIVED AN ORDER TO ARRANGE FOR A VIVO 65 THRU [facility] [facility]. PATIENT REMAINS ON 9/L OXYGEN. SHE HAS [facility] MEDICARE [employer] IJNSURANCE PROVIDER. WILL NEED TO CONTACT THE APPROPRIATE [facility] STAFF ON WEDNESDAY AND HER PROVIDER TO REQUEST THIS UNIT. CM TO FOLLOW. DCP- Discharge Planning Updated by [email or web address]: Nora Berrios on 04/12/19 10:[address] Patient Name: DELLA BRISENO Admission Status: ER Accout number: [id number] Admission Date: 04-10-2019 : 1950 Admission Diagnosis: Attending: AC MARCELINO Current LOS: 2 Anticipated DC Date: Planned Disposition: Home Primary Insurance: [facility] MEDICARE SOLUTIONS Discharge Planning Comments: CM met with patient to complete initial dc planning assessment. CM educated patient on the CM role and verbal consent given by patient to complete assessment. Patient lives at home with her , daughter and family where she is for the most part total care. Daughter Lali states that patient at times could use walker with assist to go to restroom but would need to rest and catch her breath. At discharge patient plans to return home and feels this is a safe discharge. CM gave Lali information on some resources to help within the home. Lali stated that her father has just started having radiation treatments and she is having a difficult time taking care of both of them. CM discussed availability of home health, rehab services, and medical equipment. Lali also stated that they are suppose to be getting a hospital bed d/t her mother sliding out of the bed at home. Family will transport home. Patient has a nebulizer and home o2 ( [facility] home patient ) Patient denied known discharge needs at this time. CM will continue to follow and will assist as needed with dc plans/needs. Director Of Sustainable Design: Nora Berrios DCP- Discharge Planning Updated by [email or web address]: Nora Berrios on 04/11/19 5:[address] CM wasn't able to speak to patient regarding discharge planning d/t her having to wear BiPAP continuously. No family available. CM will continue to follow and assist as needed with discharge planning / needs. DCPIA - Discharge Planning Initial Assessment Updated by [id number]: Nora Berrios on 04/12/19 11:20 am * Is the patient Alert and Oriented? Yes * How many steps to enter\exit or inside your home? * PCP CECILIA RICO HAS BEEN SEEING HOUSE CALLS FOR THE LAST SEVERAL YEARS NOT GOING TO CLINIC * [facility] [address] * Preadmission Environment Home with Family * ADLs Total Dependent * Other Equipment HOME / PORTABLE 02, NEBULIZER, 02 MONITOR, GLUCOMETER, HOSPITAL BED PENDING * List name and contact numbers for known caregivers / representatives who currently or will assist patient after discharge: LALI BRISENO - DAUGHTER- [phone] * Verbal permission to speak to the caregivers and representatives has been obtained from the patient. Yes * Please name any agencies selected above. [facility] [employer], [employer] * Additional services required to return to the preadmission environment? No * Can the patient safely return to the preadmission environment? Yes * Has this patient been hospitalized within the prior 30 days at any hospital? No Coverage Notice Reviewer: THAD Goncalves Notice Issued Date-Time: 04/26/2019 16:35 Notice Type: Patient Choice Letter Notice Delivered To: Patient Relationship to Patient: Customer Marketing Manager Name: Delivery Method: HAND - Hand Delivered Rosa Isela Days: Prior Verbal Notification: Recipient Understood Notice: Yes Recipient Signature: Yes Med Rec Note Co-signed by Attending: Coverage Notice Comment: RIKA NATHANIEL Reviewer: THAD Goncalves Notice Issued Date-Time: 04/26/2019 9:35 Notice Type: Patient Choice Letter Notice Delivered To: Patient Relationship to Patient: Customer Marketing Manager Name: Delivery Method: HAND - Hand Delivered Rosa Isela Days: Prior Verbal Notification: Recipient Understood Notice: Yes Recipient Signature: Yes Med Rec Note Co-signed by Attending: Coverage Notice Comment: [facility] OR NO MEDICAL EQUIPMENT PROVIDER PREFERENCE. Reviewer: THAD Goncalves Notice Issued Date-Time: 04/26/2019 9:35 Notice Type: IM Discharge Notice Notice Delivered To: Patient Relationship to Patient: Customer Marketing Manager Name: Delivery Method: HAND - Hand Delivered Rosa Isela Days: Prior Verbal Notification: Recipient Understood Notice: Yes Recipient Signature: Yes Med Rec Note Co-signed by Attending: Coverage Notice Comment: Reviewer: THAD Goncalves Notice Issued Date-Time: 04/24/2019 9:50 Notice Type: IM Discharge Notice Notice Delivered To: Patient Relationship to Patient: Customer Marketing Manager Name: Delivery Method: HAND - Hand Delivered Rosa Isela Days: Prior Verbal Notification: Recipient Understood Notice: Yes Recipient Signature: Yes Med Rec Note Co-signed by Attending: Coverage Notice Comment: Last DP export: 04/27/19 6:21 a Patient Name: DELLA BRISENO Page 60526 at 0812 All edits/amendments must be made on the electronic document DICTATION DATE: 04/27/19811 CHILD DEVELOPMENT SPECIALIST: MARCOS 04/27/19811 RPT#: [id number] DC DATE: STATUS: ADM IN [facility] [address] [place] [address] END OF REPORT
[2019-04-27 09:16] VITALS: BP 138/65
--- NOTE | 2019-04-27 09:39 | NUR ---
AM MEDICATIONS ADMINISTERED. PT HAS BEEN PLACED ON BEDPAN 3 DIFFERENT TIMES. PT HAS HAD LARGE LOOSE BM'S EACH TIME. CLEANED PT AND APPLIED BUTT PASTE. WILL CTM.
[2019-04-27 13:29] VITALS: BP 108/42
--- NOTE | 2019-04-27 15:13 | NUR ---
OT NOTE: PT COMPLETED SUPINE TO SIT WITH MIN A. PT COMPLETED ADL MOB WITH MIN/MOD A. PT COMPLETED GROOMING TASKS WHILE SEATING IN CHAIR WITH SET UP. PT THANK YOU, LAURENT SAWYER
--- NOTE | 2019-04-27 16:10 | NUR ---
OT NOTE: SIMPLE GROOMING INCLUDING WASHING FACE AND HANDS WITH SET UP. EXT ASSIST TO JUAQUIN/DOFF SOCKS; BED MOB WITH MOD ASSIST; STATIC SITTING ON EOB WITH GOOD BALANCE. GERALD MARTINES, OTR/L
--- NOTE | 2019-04-27 16:22 | MORECARE ---
CASE MANAGEMENT DISCHARGE SUMMARY PATIENT: DELLA BRISENO UNIT: [id number] ADM DATE: 04/10/19 AGE: 68 : 49 SEX: F ROOM/BED: D.7820 AUTHOR: FISH,DOC PHYSICIAN: REFERRING PHYSICIAN: AC MARCELINO MD DATE OF SERVICE: 04/27/19 Discharge Plan Patient Name: DELLA BRISENO Facility: [facility]:[place] : 1950 Planned Disposition: Assisted Facility Anticipated Discharge Date: Discharge Date: Expected LOS: Initial Reviewer: [id number] Initial Review Date: 04/12/2019 Generated: 04/27/19 5:21 pm Comments DCP- Discharge Planning Updated by [id number]: Chidi Goncalves on 04/27/19 7:[address] Patient Name: DELLA BRISENO Encounter No: [id number] : 1950 Primary Insurance: [facility] MEDICARE SOLUTIONS Anticipated DC Date: Planned Disposition: Assisted Facility External Planned Provider: [facility], MEDICARE REHAB BED DCP follow-up note: CM CONTACTED IMAN OF [facility], , NOTIFIED OF REFERRAL FOR REHAB SERVICES. CM FAXED REFERRAL TO [facility] VIA [facility] AT [phone]. CM WAITING MEDICAL STABILITY FOR REHAB. CM WAITING INSURANCE APPROVAL OF VIVO 65 MACHINE THROUGH [employer]. CM WAITING ADMISSION DETERMINATION FROM NURSING AND REHAB [facility] INSURANCE AUTHORIZATION FROM PT'S INSURANCE FOR [facility]. Chidi Goncalves, KIMBERLEY CRISTOBAL DCP- Discharge Planning Updated by [id number]: Chidi Goncalves on 04/26/19 3:[address] Patient Name: DELLA BRISENO Encounter No: [id number] : 1950 Primary Insurance: [facility] MEDICARE SOLUTIONS Anticipated DC Date: Planned Disposition: Assisted Facility External Planned Provider: [facility], MEDICARE REHAB BED DCP follow-up note: CM MET WITH PT AND DAUGHTER IN ROOM AT PT'S REQUEST TO DISCUSS DISCHARGE PLANNING WITH DAUGHTER. DAUGHTER REPORTS RECEIVING LIST OF NURSING REHABS, HAS DISCUSSED WITH PT AND THEY WANT [facility] FOR REHAB IT IS CLOSE TO THEIR HOMES. PT SIGNED CONSENT FOR [facility]. CM EXPLAINED REFERRAL TO [employer] FOR VIVO 65 NIPPV AND WAITING INSURANCE AUTHORIZATION TO SEE IF THE MACHINE CAN BE APPROVED AND DELIVERED TO HOSPITAL. CM WAITING INSURANCE APPROVAL OF VIVO 65 MACHINE THROUGH [employer]. CM TO FAX REFERRAL FOR REHAB TO [facility] SOON POSSIBLE. Chidi Goncalves, CASE MANAGEMENT DCP- Discharge Planning Updated by [id number]: Chidi Goncalves on 04/26/19 1:[address] Patient Name: DELLA BRISENO Encounter No: [id number] : 1950 Primary Insurance: [facility] MEDICARE SOLUTIONS Anticipated DC Date: Planned Disposition: Assisted Facility External Planned Provider: TO BE DETERMINED DCP follow-up note: CM RECEIVED CALL FROM CHANELLE OF [facility] WHO INFORMED CM THAT PT'S INSURANCE DECLINED INPATIENT REHAB AND PROVIDED PEER TO PEER INSTRUCTIONS IF THE PHYSICIAN WISHES TO APPEAL. CM NOTIFIED DAVID BRAXTON AND DR. MARCELINO, BOTH AGREE FOR [facility]. CM MET WITH PT IN ROOM AND DISCUSSED INSURANCE DECLINATION OF INPATIENT REHAB, DISCUSSED AVAILABILITY OF [facility] AND PROVIDERS. PT REPORTS STILL HAVING INFORMATION ON PROVIDERS GIVEN TO HER BY CM AND PT'S DAUGHTER TOOK IT WITH HER. PT STATES SHE WANTS TO TALK TO HER DAUGHTER WHO WILL BE HERE TODAY SOMETIME AND PT WILL LET CM KNOW WHICH FACILITIES THEY CHOOSE. CHOICE FORM WITH CM CONTACT INFORMATION LEFT WITH PT IN ROOM. CM DISCUSSED VIVO 65 ORDER, PT WOULD LIKE CM TO CALL [facility] FIRST AND HAS NO PREFERENCE ON PROVIDER IF [facility] CANNOT PROVIDE THE MACHINE. IMPORTANT MESSAGE FROM MEDICARE PROVIDED AND EXPLAINED. CM REVIEWED CHART AND ORDER FOR VIVO 65 FOR DISHCHARGE. CM CALLED AND SPOKE TO GERALD OF [facility], THEY DO NOT PROVIDE VIVO 65, SUGGESTED TRILOGY OR ASTRAL MACHINES. CM CALLED [employer], , SPOKE TO LUCERO WHO INFORMED CM THAT THEY DO PROVIDE THE VIVO 65. CM FAXED ORDER AND SUPPORTING DOCUMENTS TO [employer] AT [phone]. CM WAITING INSURANCE APPROVAL OF VIVO 65 MACHINE THROUGH [employer]. CM WAITING PT AND FAMILY DECISION REGARDING [facility] FACILITY SELECTION. CM WAITING PT'S OXYGEN LEVEL TO GET DOWN TO ACCEPTABLE LEVEL FOR DISCHARGE TO REHAB. Chidi Goncalves, CASE MANAGEMENT DCP- Discharge Planning Updated by [id number]: Chidi Goncalves on 04/24/19 4:[address] Patient Name: DELLA BRISENO Encounter No: [id number] : 1950 Primary Insurance: [facility] MEDICARE [employer] Anticipated DC Date: Planned Disposition: Inpatient Rehab External Planned Provider: [facility] INPATIENT REH[facility] DCP follow-up note: CM RECEIVED REQUEST TO SPEAK TO PT IN ROOM. BEDSIDE NURSE DOES NOT KNOW WHY PT WANTS TO SEE CM, BUT PT HAS REFUSED ALL LABS THIS MORNING. CM MET WITH PT IN ROOM. PT INFORMED CM THAT DR. COBIAN TOLD HER SHE IS GOING TO REHAB AT [facility] AND WANTED TO KNOW PROGRESS OF THIS. CM EXPLAINED THAT NO ORDERS HAD BEEN ENTERED FOR INPATIENT REHAB PRESCREENING OF YET AND THAT PT'S INSURANCE WOULD HAVE TO APPROVE REHAB. CM EXPLAINED THAT PT WOULD NEED TO BE ABLE TO TOLERATE THREE HOURS OF PROGRESSIVE THERAPY PER DAY. PT STATES SHE CAN DO IT. PT'S PLAN AFTER REHAB IS TO DISCHARGE HOME WHERE SHE WAS INDEPENDENT IN HER CARE PRIOR TO GETTING SICK. CM DISCUSSED POSSIBLITY OF INSURANCE DECLINING INPATIENT, DISCUSSED AVAILABLE [facility] FACLITIES, PROVIDED LISTING. PT ASKED CM TO CALL HER DAUGHTER, PATRICIA. CM CALLED PATRICIA, , LEFT MESSAGE ASKING FOR RETURN CALL. IMPORTANT MESSAGE FROM MEDICARE PROVIDED AND EXPLAINED. CM NOTIFIED CHANELLE OF INPATIENT REHAB, DR. MARCELINO AND DAVID BRAXTON IN MULTIDISCIPLINARY TEAM MEETING. ORDER FOR INPATIENT REHAB PRESCREENING OBTAINED. CM WAITING ADMISSION DETERMINATION FROM INPATIENT REHAB AT [place] [facility] INSURANCE AUTHORIZATION FOR SERVICES. Chidi Goncalves, CASE MANAGEMENT DCP- Discharge Planning Updated by [id number]: Tierney Shukla on 04/22/19 2:[address] CM RECEIVED AN ORDER TO ARRANGE FOR A VIVO 65 THRU [facility]. PATIENT REMAINS ON 9/L OXYGEN. SHE HAS [facility] MEDICARE [employer] IJNSURANCE PROVIDER. WILL NEED TO CONTACT THE APPROPRIATE [facility] STAFF ON WEDNESDAY AND HER PROVIDER TO REQUEST THIS UNIT. CM TO FOLLOW. DCP- Discharge Planning Updated by [email or web address]: Nora Berrios on 04/12/19 10:[address] Patient Name: DELLA BRISENO Admission Status: ER Accout number: [id number] Admission Date: 04-10-2019 : 1950 Admission Diagnosis: Attending: AC MARCELINO Current LOS: 2 Anticipated DC Date: Planned Disposition: Home Primary Insurance: [facility] MEDICARE SOLUTIONS Discharge Planning Comments: CM met with patient to complete initial dc planning assessment. CM educated patient on the CM role and verbal consent given by patient to complete assessment. Patient lives at home with her , daughter and family where she is for the most part total care. Daughter Lali states that patient at times could use walker with assist to go to restroom but would need to rest and catch her breath. At discharge patient plans to return home and feels this is a safe discharge. CM gave Lali information on some resources to help within the home. Lali stated that her father has just started having radiation treatments and she is having a difficult time taking care of both of them. CM discussed availability of home health, rehab services, and medical equipment. Lali also stated that they are suppose to be getting a hospital bed d/t her mother sliding out of the bed at home. Family will transport home. Patient has a nebulizer and home o2 ( [place] home patient ) Patient denied known discharge needs at this time. CM will continue to follow and will assist as needed with dc plans/needs. Casing Operator: Nora Berrios DCP- Discharge Planning Updated by [id number]: Nora Berrios on 04/11/19 5:[address] CM wasn't able to speak to patient regarding discharge planning d/t her having to wear BiPAP continuously. No family available. CM will continue to follow and assist as needed with discharge planning / needs. DCPIA - Discharge Planning Initial Assessment Updated by [id number]: Nora Berrios on 04/12/19 11:20 am * Is the patient Alert and Oriented? Yes * How many steps to enter\exit or inside your home? * PCP CECILIA RICO HAS BEEN SEEING HOUSE CALLS FOR THE LAST SEVERAL YEARS NOT GOING TO CLINIC * [facility] [address] * Preadmission Environment Home with Family * ADLs Total Dependent * Other Equipment HOME / PORTABLE 02, NEBULIZER, 02 MONITOR, GLUCOMETER, HOSPITAL BED PENDING * List name and contact numbers for known caregivers / representatives who currently or will assist patient after discharge: LALI BRISENO - DAUGHTER- [phone] * Verbal permission to speak to the caregivers and representatives has been obtained from the patient. Yes * Please name any agencies selected above. [facility] [employer], [employer] [facility] * Additional services required to return to the preadmission environment? No * Can the patient safely return to the preadmission environment? Yes * Has this patient been hospitalized within the prior 30 days at any hospital? No Coverage Notice Reviewer: THAD Goncalevs Notice Issued Date-Time: 04/24/2019 9:50 Notice Type: IM Discharge Notice Notice Delivered To: Patient Relationship to Patient: Hotel Associate Name: Delivery Method: HAND - Hand Delivered Rosa Isela Days: Prior Verbal Notification: Recipient Understood Notice: Yes Recipient Signature: Yes Med Rec Note Co-signed by Attending: Coverage Notice Comment: Reviewer: THAD Goncalves Notice Issued Date-Time: 04/26/2019 9:35 Notice Type: Patient Choice Letter Notice Delivered To: Patient Relationship to Patient: Hotel Associate Name: Delivery Method: HAND - Hand Delivered Rosa Isela Days: Prior Verbal Notification: Recipient Understood Notice: Yes Recipient Signature: Yes Med Rec Note Co-signed by Attending: Coverage Notice Comment: [facility] NO MEDICAL EQUIPMENT PROVIDER PREFERENCE. Reviewer: THAD Goncalves Notice Issued Date-Time: 04/26/2019 9:35 Notice Type: IM Discharge Notice Notice Delivered To: Patient Relationship to Patient: Hotel Associate Name: Delivery Method: HAND - Hand Delivered Rosa Isela Days: Prior Verbal Notification: Recipient Understood Notice: Yes Recipient Signature: Yes Med Rec Note Co-signed by Attending: Coverage Notice Comment: Reviewer: THAD Goncalves Notice Issued Date-Time: 04/26/2019 16:35 Notice Type: Patient Choice Letter Notice Delivered To: Patient Relationship to Patient: Hotel Associate Name: Delivery Method: HAND - Hand Delivered Rosa Isela Days: Prior Verbal Notification: Recipient Understood Notice: Yes Recipient Signature: Yes Med Rec Note Co-signed by Attending: Coverage Notice Comment: [facility] Last DP export: 04/27/19 7:12 a Patient Name: DELLA BRISENO Page [id number] at 1622 All edits/amendments must be made on the electronic document DICTATION DATE: 04/27/19 1621 SECOND MATE: MARCOS 04/27/19 1621 RPT#: [id number] DC DATE: STATUS: ADM IN [facility] [address] [place] [address] END OF REPORT
--- NOTE | 2019-04-27 16:32 | MORECARE ---
CASE MANAGEMENT DISCHARGE SUMMARY PATIENT: DELLA BRISENO UNIT: [id number] ADM DATE: 04/10/19 AGE: 68 : [birth year] SEX: F ROOM/BED: D.2836 AUTHOR: FISH,DOC PHYSICIAN: REFERRING PHYSICIAN: AC MARCELINO MD DATE OF SERVICE: 04/27/19 Discharge Plan Patient Name: DELLA BRISENO Facility: [facility]:[place] : 1950 Planned Disposition: Jail Facility Anticipated Discharge Date: Discharge Date: Expected LOS: Initial Reviewer: [id number] Initial Review Date: 04/12/2019 Generated: 04/27/19 5:32 pm Comments DCP- Discharge Planning Updated by [id number]: Chidi Goncalves on 04/27/19 3:[address] Patient Name: DELLA BRISENO Encounter No: [id number] : 1950 Primary Insurance: [facility] MEDICARE SOLUTIONS Anticipated DC Date: Planned Disposition: Jail Facility External Planned Provider: [facility], MEDICARE REHAB BED DCP follow-up note: CM RECEIVED CALL FROM MARIN OF [facility], THEY WILL ACCEPT PT FOR REHAB AND CAN ACCEPT ON 5 LITERS OF OXYGEN OR LESS. THEY HAVE INSURANCE AUTHORIZATION. PT WILL NEED VIVO 65 PRIOR TO REHAB OR IF THEY NEED TO ARRANGE BIPAP, THEY WILL NEED TO ORDER IT. CM ADVISED VIVO HAS BEEN ORDERED THROUGH [employer] AND WE ARE WAITING INSURANCE AUTHORIZATION FOR MACHINE. WHEN AND IF VIVO IS AUTHORIZED BY INSURANCE AND DELIVERED TO PT, [facility] WILL ACCEPT PT ON LESS THAN 5 LITERS OF OXYGEN. FOR DISCHARGE TO [facility]URSING [facility] RE[facility], FAX DISCHARGE INFORMATION TO [facility] AT [phone]; NURSE REPORT TO BE CALLED TO [facility] AT [phone]. [facility] TO ARRANGE VAN TRANSPORATION. Chidi Goncalves CASE MANAGEMENT DCP- Discharge Planning Updated by [id number]: Chidi Goncalves on 04/27/19 7:[address] Patient Name: DELLA BRISENO Encounter No: [id number] : 1950 Primary Insurance: [facility] MEDICARE SOLUTIONS Anticipated DC Date: Planned Disposition: Jail Facility External Planned Provider: [facility], MEDICARE REHAB BED DCP follow-up note: CM CONTACTED IMAN OF [facility], , NOTIFIED OF REFERRAL FOR REHAB SERVICES. CM FAXED REFERRAL TO [facility] VIA [facility] AT [phone]. CM WAITING MEDICAL STABILITY FOR REHAB. CM WAITING INSURANCE APPROVAL OF VIVO 65 MACHINE THROUGH [employer]. CM WAITING ADMISSION DETERMINATION FROM NURSING AND REHAB WELL INSURANCE AUTHORIZATION FROM PT'S INSURANCE FOR SNF REHAB. Chidi Goncalves, CASE MANAGEMENT DCP- Discharge Planning Updated by [id number]: Chidi Goncalves on 04/26/19 3:[address] Patient Name: DELLA BRISENO Encounter No: [id number] : 1950 Primary Insurance: [facility] MEDICARE SOLUTIONS Anticipated DC Date: Planned Disposition: Jail Facility External Planned Provider: [facility], MEDICARE REHAB BED DCP follow-up note: CM MET WITH PT AND DAUGHTER IN ROOM AT PT'S REQUEST TO DISCUSS DISCHARGE PLANNING WITH DAUGHTER. DAUGHTER REPORTS RECEIVING LIST OF NURSING REHABS, HAS DISCUSSED WITH PT AND THEY WANT [facility] FOR REHAB IT IS CLOSE TO THEIR HOMES. PT SIGNED CONSENT FOR [facility]. CM EXPLAINED REFERRAL TO [facility] FOR VIVO [facility] NIPPV AND WAITING INSURANCE AUTHORIZATION TO SEE IF THE MACHINE CAN BE APPROVED AND DELIVERED TO HOSPITAL. CM WAITING INSURANCE APPROVAL OF VIVO 65 MACHINE THROUGH [employer]. CM TO FAX REFERRAL FOR REHAB TO [facility] NURSING AND REHAB SOON POSSIBLE. Chidi Goncalves CASE MANAGEMENT DCP- Discharge Planning Updated by [id number]: Chidi Goncalves on 04/26/19 1:[address] Patient Name: DELLA BRISENO Encounter No: [id number] : 1950 Primary Insurance: [facility] MEDICARE SOLUTIONS Anticipated DC Date: Planned Disposition: Jail Facility External Planned Provider: TO BE DETERMINED DCP follow-up note: CM RECEIVED CALL FROM CHANELLE OF INPATIENT REHAB WHO INFORMED CM THAT PT'S INSURANCE DECLINED INPATIENT REHAB AND PROVIDED PEER TO PEER INSTRUCTIONS IF THE PHYSICIAN WISHES TO APPEAL. CM NOTIFIED DAVID BRAXTON AND DR. MARCELINO, BOTH AGREE FOR SNF REHAB. CM MET WITH PT IN ROOM AND DISCUSSED INSURANCE DECLINATION OF INPATIENT REHAB, DISCUSSED AVAILABILITY OF SNF REHAB AND PROVIDERS. PT REPORTS STILL HAVING INFORMATION ON PROVIDERS GIVEN TO HER BY CM AND PT'S DAUGHTER TOOK IT WITH HER. PT STATES SHE WANTS TO TALK TO HER DAUGHTER WHO WILL BE HERE TODAY SOMETIME AND PT WILL LET CM KNOW WHICH FACILITIES THEY CHOOSE. CHOICE FORM WITH CM CONTACT INFORMATION LEFT WITH PT IN ROOM. CM DISCUSSED VIVO 65 ORDER, PT WOULD LIKE CM TO CALL [facility] FIRST AND HAS NO PREFERENCE ON PROVIDER IF [facility] CANNOT PROVIDE THE MACHINE. IMPORTANT MESSAGE FROM MEDICARE PROVIDED AND EXPLAINED. CM REVIEWED CHART AND ORDER FOR VIVO 65 FOR DISHCHARGE. CM CALLED AND SPOKE TO GERALD OF [facility], THEY DO NOT PROVIDE VIVO 65, SUGGESTED TRILOGY OR ASTRAL MACHINES. CM CALLED [employer], , SPOKE TO LUCERO WHO INFORMED CM THAT THEY DO PROVIDE THE VIVO 65. CM FAXED ORDER AND SUPPORTING DOCUMENTS TO [facility] AT [phone]. CM WAITING INSURANCE APPROVAL OF VIVO 65 MACHINE THROUGH [employer]. CM WAITING PT AND FAMILY DECISION REGARDING SNF FACILITY SELECTION. CM WAITING PT'S OXYGEN LEVEL TO GET DOWN TO ACCEPTABLE LEVEL FOR DISCHARGE TO REHAB. Chidi Goncalves, CASE MANAGEMENT DCP- Discharge Planning Updated by [id number]: Chidi Goncalves on 04/24/19 4:[address] Patient Name: DELLA BRISENO Encounter No: [id number] : 1950 Primary Insurance: [facility] MEDICARE SOLUTIONS Anticipated DC Date: Planned Disposition: Inpatient Rehab External Planned Provider: [facility] INPATIENT REHAB DCP follow-up note: CM RECEIVED REQUEST TO SPEAK TO PT IN ROOM. BEDSIDE NURSE DOES NOT KNOW WHY PT WANTS TO SEE CM, BUT PT HAS REFUSED ALL LABS THIS MORNING. CM MET WITH PT IN ROOM. PT INFORMED CM THAT DR. COBIAN TOLD HER SHE IS GOING TO REHAB AT [facility] AND WANTED TO KNOW PROGRESS OF THIS. CM EXPLAINED THAT NO ORDERS HAD BEEN ENTERED FOR INPATIENT REHAB PRESCREENING OF YET AND THAT PT'S INSURANCE WOULD HAVE TO APPROVE REHAB. CM EXPLAINED THAT PT WOULD NEED TO BE ABLE TO TOLERATE THREE HOURS OF PROGRESSIVE THERAPY PER DAY. PT STATES SHE CAN DO IT. PT'S PLAN AFTER REHAB IS TO DISCHARGE HOME WHERE SHE WAS INDEPENDENT IN HER CARE PRIOR TO GETTING SICK. CM DISCUSSED POSSIBLITY OF INSURANCE DECLINING INPATIENT, DISCUSSED AVAILABLE SNF FACLITIES, PROVIDED LISTING. PT ASKED CM TO CALL HER DAUGHTER, PATRICIA. CM CALLED PATRICIA, , LEFT MESSAGE ASKING FOR RETURN CALL. IMPORTANT MESSAGE FROM MEDICARE PROVIDED AND EXPLAINED. CM NOTIFIED CHANELLE OF INPATIENT REHAB, DR. MARCELINO AND DAVID BRAXTON IN MULTIDISCIPLINARY TEAM MEETING. ORDER FOR INPATIENT REHAB PRESCREENING OBTAINED. CM WAITING ADMISSION DETERMINATION FROM INPATIENT REHAB AT [place] [facility] INSURANCE AUTHORIZATION FOR SERVICES. Chidi Goncalves, CASE MANAGEMENT DCP- Discharge Planning Updated by [id number]: Tierney Shukla on 04/22/19 2:[address] CM RECEIVED AN ORDER TO ARRANGE FOR A VIVO 65 THRU [facility]. PATIENT REMAINS ON 9/L OXYGEN. SHE HAS [facility] MEDICARE SOLUTIONS IJNSURANCE PROVIDER. WILL NEED TO CONTACT THE APPROPRIATE [facility] STAFF ON WEDNESDAY AND HER PROVIDER TO REQUEST THIS UNIT. CM TO FOLLOW. DCP- Discharge Planning Updated by [id number]: Nora Agustina on 04/12/19 10:[address] Patient Name: DELLA BRISENO Admission Status: ER Accout number: [id number] Admission Date: 04-10-2019 : 1950 Admission Diagnosis: Attending: AC MARCELINO Current LOS: 2 Anticipated DC Date: Planned Disposition: Home Primary Insurance: [facility] MEDICARE SOLUTIONS Discharge Planning Comments: CM met with patient to complete initial dc planning assessment. CM educated patient on the CM role and verbal consent given by patient to complete assessment. Patient lives at home with her , daughter and family where she is for the most part total care. Daughter Lali states that patient at times could use walker with assist to go to restroom but would need to rest and catch her breath. At discharge patient plans to return home and feels this is a safe discharge. CM gave Lali information on some resources to help within the home. Lali stated that her father has just started having radiation treatments and she is having a difficult time taking care of both of them. CM discussed availability of home health, rehab services, and medical equipment. Lali also stated that they are suppose to be getting a hospital bed d/t her mother sliding out of the bed at home. Family will transport home. Patient has a nebulizer and home o2 ( [facility] patient ) Patient denied known discharge needs at this time. CM will continue to follow and will assist as needed with dc plans/needs. Shuttle Hand: Nora Berrios DCP- Discharge Planning Updated by [id number]: Nora Berrios on 04/11/19 5:[address] CM wasn't able to speak to patient regarding discharge planning d/t her having to wear BiPAP continuously. No family available. CM will continue to follow and assist as needed with discharge planning / needs. DCPIA - Discharge Planning Initial Assessment Updated by [id number]: Nora Berrios on 04/12/19 11:20 am * Is the patient Alert and Oriented? Yes * How many steps to enter\exit or inside your home? * PCP CECILIA - TRISHA HAS BEEN SEEING HOUSE CALLS FOR THE LAST SEVERAL YEARS NOT GOING TO CLINIC * [facility] [address] * Preadmission Environment Home with Family * ADLs Total Dependent * Other Equipment HOME / PORTABLE 02, NEBULIZER, 02 MONITOR, GLUCOMETER, HOSPITAL BED PENDING * List name and contact numbers for known caregivers / representatives who currently or will assist patient after discharge: LALI BRISENO - DAUGHTER- [phone] * Verbal permission to speak to the caregivers and representatives has been obtained from the patient. Yes * Please name any agencies selected above. [facility] [employer], [employer] [facility] * Additional services required to return to the preadmission environment? No * Can the patient safely return to the preadmission environment? Yes * Has this patient been hospitalized within the prior 30 days at any hospital? No Coverage Notice Reviewer: [id number] Goncalves Notice Issued Date-Time: 04/26/2019 16:35 Notice Type: Patient Choice Letter Notice Delivered To: Patient Relationship to Patient: Watch Inspector Final Movement Name: Delivery Method: HAND - Hand Delivered Rosa Isela Days: Prior Verbal Notification: Recipient Understood Notice: Yes Recipient Signature: Yes Med Rec Note Co-signed by Attending: Coverage Notice Comment: RIKA ARMSTRONG Reviewer: [id number] Jan Goncalves Notice Issued Date-Time: 04/26/2019 9:35 Notice Type: Patient Choice Letter Notice Delivered To: Patient Relationship to Patient: Watch Inspector Final Movement Name: Delivery Method: HAND - Hand Delivered Rosa Isela Days: Prior Verbal Notification: Recipient Understood Notice: Yes Recipient Signature: Yes Med Rec Note Co-signed by Attending: [facility]age [facility]IP[facility] PREFERENCE. Reviewer: [id number] Jan Goncalves Notice Issued Date-Time: 04/26/2019 9:35 Notice Type: IM Discharge Notice Notice Delivered To: Patient Relationship to Patient: Watch Inspector Final Movement Name: Delivery Method: HAND - Hand Delivered Rosa Isela Days: Prior Verbal Notification: Recipient Understood Notice: Yes Recipient Signature: Yes Med Rec Note Co-signed by Attending: Coverage Notice Comment: Reviewer: [id number] Goncalves Notice Issued Date-Time: 04/24/2019 9:50 Notice Type: IM Discharge Notice Notice Delivered To: Patient Relationship to Patient: Watch Inspector Final Movement Name: Delivery Method: HAND - Hand Delivered Rosa Isela Days: Prior Verbal Notification: Recipient Understood Notice: Yes Recipient Signature: Yes Med Rec Note Co-signed by Attending: Coverage Notice Comment: Last DP export: 04/27/19 3:22 p Patient Name: DELLA BRISENO Page [id number] at 1632 All edits/amendments must be made on the electronic document DICTATION DATE: 04/27/19 163 AUDITING MANAGER: MARCOS 04/27/19 1632 RPT#: [id number] DC DATE: STATUS: ADM IN [facility] [address] [place] [address] END OF REPORT
[2019-04-27 16:45] VITALS: BP 115/46
--- NOTE | 2019-04-27 19:22 | NUR ---
ALERT AND OX4 BED LOW AND LOCKED SRX2 PT DENIES NEEDS AT THIS TIME I ASSISTED WITH PT COMFORT CALL LIGHT IS WITH PT
[2019-04-27 21:07] VITALS: BP 136/51
--- NOTE | 2019-04-27 22:51 | NUR ---
DONNED BILEVEL AT THIS TIME. FIO2 50% PT SPO2 96% RR 23 UNLABORED ZERO CYANOSIS EQUALTERAL EXCURSION PT TOLERATED APPLICATION WELL
--- NOTE | 2019-04-28 05:00 | NUR ---
I have reviewed this patient and I concur with the Shift Assessment completed by the Licensed Practical Nurse today this shift.
[2019-04-28 06:39] VITALS: BP 137/58
[2019-04-28 06:46] LABS: CALC OSMOLALITY 292 mosm/kg (275-300); CALCIUM 8.6 mg/dL (8.5-10.1); CARBON DIOXIDE 34.9 mmol/L (21.0-32.0); CHLORIDE - SERUM 109 mmol/L (98-107); CREATININE - SERUM 0.6 mg/dL (0.6-1.3); GLUCOSE 105 mg/dL (74-106); SODIUM 147 mmol/L (136-145); UREA NITROGEN 16 mg/dL (7-18); eGFR NON AFRICAN AMERICAN > 90 mL/min (90-120)
[2019-04-28 06:47] LABS: POTASSIUM - SERUM 3.6 mmol/L (3.5-5.1)
[2019-04-28 07:14] LABS: BASOPHILS 0.1 % (0-2); HEMATOCRIT 28.4 % (36.0-48.0); HEMOGLOBIN 8.5 g/dL (12-16); IMMATURE GRANULOCYTES 0.4 % (0-5); LYMPHOCYTES 11.9 % (15-50); MCH 28.7 pg (26.0-34.0); MCHC 29.9 g/dL (31.0-37.0); MEAN PLATELET VOLUME 11.5 fL (7.4-10.4); MONOCYTES 5.3 % (2-11); NEUTROPHILS 81.3 % (40-80); PLATELET COUNT 143 10x3/uL (130-400); RBC 2.96 10x6/uL (4.00-5.40); RDW 15.2 % (11.5-14.5)
--- NOTE | 2019-04-28 07:16 | NUR ---
REPORT RECEIVED. WILL CONTINUE WITH POC. PT CURRENTLY LYING SEMI FOWLERS. CALL LIGHT W/I REACH. PT CURRENTLY ON BIPAP. RR EVEN AND UNLABORED. NO S/S OF DISTRESS NOTED. PT CURRENTLY RESTING. LEON IN PLACE AND DRAINING URINE. PT DENIES ANY NEEDS. WILL CTM.
[2019-04-28 07:35] LABS: MCV 95.9 fL (80.0-100.0); WBC 10.4 10x3/uL (4.8-10.8)
[2019-04-28 08:30] VITALS: BP 140/65
[2019-04-28] MEDS ORDERED: BETAPACE 80 MG80 MG PO (11:41)
[2019-04-28] MEDS ORDERED: FLAGYL500 MG PO (11:41)
[2019-04-28] MEDS ORDERED: PROTONIX40 MG PO (11:42)
[2019-04-28] MEDS ORDERED: PREDNISONE20 MG PO (11:43)
--- NOTE | 2019-04-28 12:09 | MORECARE ---
CASE MANAGEMENT DISCHARGE SUMMARY PATIENT: DELLA BRISENO UNIT: [id number] ADM DATE: 04/10/19 AGE: 68 : 49 SEX: F ROOM/BED: D.2134 AUTHOR: ZARIA WHITTEN PHYSICIAN: REFERRING PHYSICIAN: AC MARCELINO MD DATE OF SERVICE: 04/28/19 Discharge Plan Patient Name: DELLA BRISENO Facility: [facility]:[place] : 1950 Planned Disposition: Custodial Facility Anticipated Discharge Date: Discharge Date: Expected LOS: Initial Reviewer: [id number] Initial Review Date: 04/12/2019 Generated: 04/28/19 1:09 pm Comments DCP- Discharge Planning Updated by [email or web address]: Leonor Mireles on 04/28/19 11:[address] PLACED A CALL TO PATIENTS [facility] INPATIENT CASEMANAGERJEREMIAS RN ([phone]) AND REACHED HER VOICEMAIL. LEFT MESSAGE EXPLAINING THAT WE HAVE RECEIVED CONFIRMATION FROM THE GROUP HOME THAT THE PATIENT HAS AUTHORIZATION FOR SNF, BUT SHE WAS GOING TO NEED THE VIVO 65 BEFORE DISCHARGE AND THE Narrative COMPANY IS STATING THAT THEY STILL DO NOT HAVE AUTH. ASKED IF SHE COULD LOOK INTO THIS FOR US TO SEE IF THERE IS ANY INFORMATION MISSING OR ANYTHING WE COULD DO FROM A HOSPITAL STANDPOINT THAT WOULD EXPEDITE THIS. WILL WAIT FOR A RETURN CALL. DCP- Discharge Planning Updated by [id number]: Chidi Goncalves on 04/27/19 3:[address] Patient Name: DELLA BRISENO Encounter No: [id number] : 1950 Primary Insurance: [facility] MEDICARE SOLUTIONS Anticipated DC Date: Planned Disposition: Custodial Facility External Planned Provider: [facility], MEDICARE REHAB BED DCP follow-up note: CM RECEIVED CALL FROM MARIN OF THE [facility], THEY WILL ACCEPT PT FOR REHAB AND CAN ACCEPT ON 5 LITERS OF OXYGEN OR LESS. THEY HAVE INSURANCE AUTHORIZATION. PT WILL NEED VIVO 65 PRIOR TO REHAB OR IF THEY NEED TO ARRANGE BIPAP, THEY WILL NEED TO ORDER IT. CM ADVISED VIVO HAS BEEN ORDERED THROUGH [employer] AND WE ARE WAITING INSURANCE AUTHORIZATION FOR MACHINE. WHEN AND IF VIVO IS AUTHORIZED BY INSURANCE AND DELIVERED TO PT, [facility] WILL ACCEPT PT ON LESS THAN 5 LITERS OF OXYGEN. FOR DISCHARGE TO [facility], FAX DISCHARGE INFORMATION TO THE [facility] AT [phone]; NURSE REPORT TO BE CALLED TO THE [facility] AT [phone]. [facility] TO ARRANGE VAN TRANSPORATION. Chidi Goncalves CASE MANAGEMENT DCP- Discharge Planning Updated by [id number]: Chidi Goncalves on 04/27/19 7:[address] Patient Name: DELLA BRISENO Encounter No: [id number] : 1950 Primary Insurance: [facility] MEDICARE SOLUTIONS Anticipated DC Date: Planned Disposition: Custodial Facility External Planned Provider: [facility], MEDICARE REHAB BED DCP follow-up note: CM CONTACTED IM[facility] OF [facility], , NOTIFIED OF REFERRAL FOR REHAB SERVICES. CM FAXED REFERRAL TO THE [facility] VIA [facility] AT [phone]. CM WAITING MEDICAL STABILITY FOR REHAB. CM WAITING INSURANCE APPROVAL OF VIVO 65 MACHINE THROUGH [employer]. CM WAITING ADMISSION DETERMINATION FROM [facility] INSURANCE AUTHORIZATION FROM PT'S INSURANCE FOR HALFWAY REHAB. Chidi Goncalves CASE MANAGEMENT DCP- Discharge Planning Updated by [id number]: Chidi Goncalves on 04/26/19 3:[address] Patient Name: DELLA BRISENO Encounter No: [id number] : 1950 Primary Insurance: [facility] MEDICARE SOLUTIONS Anticipated DC Date: Planned Disposition: Custodial Facility External Planned Provider: [facility], MEDICARE REHAB BED DCP follow-up note: CM MET WITH PT AND DAUGHTER IN ROOM AT PT'S REQUEST TO DISCUSS DISCHARGE PLANNING WITH DAUGHTER. DAUGHTER REPORTS RECEIVING LIST OF NURSING REHABS, HAS DISCUSSED WITH PT AND THEY WANT [facility] FOR REHAB IT IS CLOSE TO THEIR HOMES. PT SIGNED CONSENT FOR THE [facility]. CM EXPLAINED REFERRAL TO [employer] FOR VIVO 65 NIPPV AND WAITING INSURANCE AUTHORIZATION TO SEE IF THE MACHINE CAN BE APPROVED AND DELIVERED TO HOSPITAL. CM WAITING INSURANCE APPROVAL OF VIVO 65 MACHINE THROUGH [employer]. CM TO FAX REFERRAL FOR REHAB TO THE [facility] SOON POSSIBLE. Chidi Goncalves CASE MANAGEMENT DCP- Discharge Planning Updated by [id number]: Chidi Goncalves on 04/26/19 1:[address] Patient Name: DELLA BRISENO Encounter No: [id number] : 1950 Primary Insurance: [facility] MEDICARE [employer] Anticipated DC Date: Planned Disposition: Custodial Facility External Planned Provider: TO BE DETERMINED DCP follow-up note: CM RECEIVED CALL FROM CHANELLE OF INPATIENT REHAB WHO INFORMED CM THAT PT'S INSURANCE DECLINED INPATIENT REHAB AND PROVIDED PEER TO PEER INSTRUCTIONS IF THE PHYSICIAN WISHES TO APPEAL. CM NOTIFIED DAVID BRAXTON AND DR. MARCELINO, BOTH AGREE FOR HALFWAY REHAB. CM MET WITH PT IN ROOM AND DISCUSSED INSURANCE DECLINATION OF INPATIENT REHAB, DISCUSSED AVAILABILITY OF HALFWAY REHAB AND PROVIDERS. PT REPORTS STILL HAVING INFORMATION ON PROVIDERS GIVEN TO HER BY CM AND PT'S DAUGHTER TOOK IT WITH HER. PT STATES SHE WANTS TO TALK TO HER DAUGHTER WHO WILL BE HERE TODAY SOMETIME AND PT WILL LET CM KNOW WHICH FACILITIES THEY CHOOSE. CHOICE FORM WITH CM CONTACT INFORMATION LEFT WITH PT IN ROOM. CM DISCUSSED VIVO 65 ORDER, PT WOULD LIKE CM TO CALL [employer] FIRST AND HAS NO PREFERENCE ON PROVIDER IF [facility] CANNOT PROVIDE THE MACHINE. IMPORTANT MESSAGE FROM MEDICARE PROVIDED AND EXPLAINED. CM REVIEWED CHART AND ORDER FOR VIVO 65 FOR DISHCHARGE. CM CALLED AND SPOKE TO GERALD OF [employer], THEY DO NOT PROVIDE VIVO 65, SUGGESTED TRILOGY OR ASTRAL MACHINES. CM CALLED [employer] , SPOKE TO LUCERO WHO INFORMED CM THAT THEY DO PROVIDE THE VIVO 65. CM FAXED ORDER AND SUPPORTING DOCUMENTS TO [employer] AT [phone]. CM WAITING INSURANCE APPROVAL OF VIVO 65 MACHINE THROUGH [employer]. CM WAITING PT AND FAMILY DECISION REGARDING HALFWAY FACILITY SELECTION. CM WAITING PT'S OXYGEN LEVEL TO GET DOWN TO ACCEPTABLE LEVEL FOR DISCHARGE TO REHAB. Chidi Goncalves, CASE MANAGEMENT DCP- Discharge Planning Updated by [id number]: Chidi Goncalves on 04/24/19 4:[address] Patient Name: DELLA BRISENO Encounter No: [id number] : 1950 Primary Insurance: [facility] MEDICARE [employer]nex[employer] Anticipated DC Date: Planned Disposition: Inpatient Rehab External Planned Provider: [facility] INPATIENT REHAB DCP follow-up note: CM RECEIVED REQUEST TO SPEAK TO PT IN ROOM. BEDSIDE NURSE DOES NOT KNOW WHY PT WANTS TO SEE CM, BUT PT HAS REFUSED ALL LABS THIS MORNING. CM MET WITH PT IN ROOM. PT INFORMED CM THAT DR. COBIAN TOLD HER SHE IS GOING TO REHAB AT [facility] AND WANTED TO KNOW PROGRESS OF THIS. CM EXPLAINED THAT NO ORDERS HAD BEEN ENTERED FOR INPATIENT REHAB PRESCREENING OF YET AND THAT PT'S INSURANCE WOULD HAVE TO APPROVE REHAB. CM EXPLAINED THAT PT WOULD NEED TO BE ABLE TO TOLERATE THREE HOURS OF PROGRESSIVE THERAPY PER DAY. PT STATES SHE CAN DO IT. PT'S PLAN AFTER REHAB IS TO DISCHARGE HOME WHERE SHE WAS INDEPENDENT IN HER CARE PRIOR TO GETTING SICK. CM DISCUSSED POSSIBLITY OF INSURANCE DECLINING INPATIENT, DISCUSSED AVAILABLE HALFWAY FACLITIES, PROVIDED LISTING. PT ASKED CM TO CALL HER DAUGHTER, PATRICIA. CM CALLED PATRICIA, , LEFT MESSAGE ASKING FOR RETURN CALL. IMPORTANT MESSAGE FROM MEDICARE PROVIDED AND EXPLAINED. CM NOTIFIED CHANELLE OF INPATIENT REHAB, DR. MARCELINO AND DAVID BRAXTON IN MULTIDISCIPLINARY TEAM MEETING. ORDER FOR INPATIENT REHAB PRESCREENING OBTAINED. CM WAITING ADMISSION DETERMINATION FROM INPATIENT REHAB AT [facility] INSURANCE AUTHORIZATION FOR SERVICES. Chidi Goncalves, CASE MANAGEMENT DCP- Discharge Planning Updated by [id number]: Tierney Shukla on 04/22/19 2:[address] CM RECEIVED AN ORDER TO ARRANGE FOR A VIVO 65 [facility]RU [facility]. PATIENT REMAINS ON 9/L OXYGEN. SHE HAS [facility] MEDICARE SOLUTIONS IJNSURANCE PROVIDER. WILL NEED TO CONTACT THE APPROPRIATE [facility] STAFF ON WEDNESDAY AND HER PROVIDER TO REQUEST THIS UNIT. CM TO FOLLOW. DCP- Discharge Planning Updated by [id number]: Nora Berrios on 04/12/19 10:[address] Patient Name: DELLA BRISENO Admission Status: ER Accout number: [id number] Admission Date: 04-10-2019 : 1950 Admission Diagnosis: Attending: AC MARCELINO Current LOS: 2 Anticipated DC Date: Planned Disposition: Home Primary Insurance: [facility] MEDICARE SOLUTIONS Discharge Planning Comments: CM met with patient to complete initial dc planning assessment. CM educated patient on the CM role and verbal consent given by patient to complete assessment. Patient lives at home with her , daughter and family where she is for the most part total care. Daughter Lali states that patient at times could use walker with assist to go to restroom but would need to rest and catch her breath. At discharge patient plans to return home and feels this is a safe discharge. CM gave Lali information on some resources to help within the home. Lali stated that her father has just started having radiation treatments and she is having a difficult time taking care of both of them. CM discussed availability of home health, rehab services, and medical equipment. Lali also stated that they are suppose to be getting a hospital bed d/t her mother sliding out of the bed at home. Family will transport home. Patient has a nebulizer and home o2 ( [facility] home patient ) Patient denied known discharge needs at this time. CM will continue to follow and will assist as needed with dc plans/needs. Blankmaker: Nora Berrios DCP- Discharge Planning Updated by [email or web address]: Nora Berrios on 04/11/19 5:[address] CM wasn't able to speak to patient regarding discharge planning d/t her having to wear BiPAP continuously. No family available. CM will continue to follow and assist as needed with discharge planning / needs. DCPIA - Discharge Planning Initial Assessment Updated by [id number]: Nora Berrios on 04/12/19 11:20 am * Is the patient Alert and Oriented? Yes * How many steps to enter\exit or inside your home? * PCP CECILIA RICO HAS BEEN SEEING HOUSE CALLS FOR THE LAST SEVERAL YEARS NOT GOING TO CLINIC * Pharmacy [facility] * Preadmission Environment Home with Family * ADLs Total Dependent * Other Equipment HOME / PORTABLE 02, NEBULIZER, 02 MONITOR, GLUCOMETER, HOSPITAL BED PENDING * List name and contact numbers for known caregivers / representatives who currently or will assist patient after discharge: LALI BRISENO - DAUGHTER- [phone] * Verbal permission to speak to the caregivers and representatives has been obtained from the patient. Yes * Please name any agencies selected above. [facility], [employer] [facility] * Additional services required to return to the preadmission environment? No * Can the patient safely return to the preadmission environment? Yes * Has this patient been hospitalized within the prior 30 days at any hospital? No Coverage Notice Reviewer: [id number] - Chidi Goncalves Notice Issued Date-Time: 04/24/2019 9:50 Notice Type: IM Discharge Notice Notice Delivered To: Patient Relationship to Patient: Gas Meter Repair Supervisor Name: Delivery Method: HAND - Hand Delivered Rosa Isela Days: Prior Verbal Notification: Recipient Understood Notice: Yes Recipient Signature: Yes Med Rec Note Co-signed by Attending: Coverage Notice Comment: Reviewer: THAD Goncalves Notice Issued Date-Time: 04/26/2019 9:35 Notice Type: Patient Choice Letter Notice Delivered To: Patient Relationship to Patient: Gas Meter Repair Supervisor Name: Delivery Method: HAND - Hand Delivered Rosa Isela Days: Prior Verbal Notification: Recipient Understood Notice: Yes Recipient Signature: Yes Med Rec Note Co-signed by Attending: Coverage Notice Comment: [facility] OR NO MEDICAL EQUIPMENT PROVIDER PREFERENCE. Reviewer: THAD Goncalves Notice Issued Date-Time: 04/26/2019 9:35 Notice Type: IM Discharge Notice Notice Delivered To: Patient Relationship to Patient: Gas Meter Repair Supervisor Name: Delivery Method: HAND - Hand Delivered Rosa Isela Days: Prior Verbal Notification: Recipient Understood Notice: Yes Recipient Signature: Yes Med Rec Note Co-signed by Attending: Coverage Notice Comment: Reviewer: THAD Goncalves Notice Issued Date-Time: 04/26/2019 16:35 Notice Type: Patient Choice Letter Notice Delivered To: Patient Relationship to Patient: Gas Meter Repair Supervisor Name: Delivery Method: HAND - Hand Delivered Rosa Isela Days: Prior Verbal Notification: Recipient Understood Notice: Yes Recipient Signature: Yes Med Rec Note Co-signed by Attending: Coverage Notice Comment: TYSHAWN Galdamez DP export: 04/27/19 3:32 p Patient Name: DELLA BRISENO Page [id number] at 1209 All edits/amendments must be made on the electronic document DICTATION DATE: 04/28/19 1209 POLISHING WHEEL REPAIRER: MARCOS 04/28/19 1209 RPT#: [id number] DC DATE: STATUS: ADM IN [facility] [address] [place] [address] END OF REPORT
--- NOTE | 2019-04-28 12:25 | MORECARE ---
CASE MANAGEMENT DISCHARGE SUMMARY PATIENT: DELLA BRISENO UNIT: [id number] ADM DATE: 04/10/19 AGE: 68 : [birth year] SEX: F ROOM/BED: D.9899 AUTHOR: FISH,DOC PHYSICIAN: REFERRING PHYSICIAN: AC MARCELINO MD DATE OF SERVICE: 04/28/19 Discharge Plan Patient Name: DELLA BRISENO Facility: [facility]:[place] : 1950 Planned Disposition: Penitentiary Facility Anticipated Discharge Date: Discharge Date: Expected LOS: Initial Reviewer: [id number] Initial Review Date: 04/12/2019 Generated: 04/28/19 1:24 pm Comments DCP- Discharge Planning Updated by [id number]: Chidi Goncalves on 04/28/19 11:[address] Patient Name: DELLA BRISENO Admission Status: ER Accout number: [id number] Admission Date: 04-10-2019 : 1950 Admission Diagnosis:UNSPECIFIED ATRIAL FLUTTER Attending: AC MARCELINO Current LOS: 18 Anticipated DC Date: Planned Disposition: Penitentiary Facility Primary Insurance: [facility] MEDICARE SOLUTIONS PLANNED EXTERAL [facility] DCP follow-up note: CM CALLED LUCERO AT [facility], , ASKED ABOUT INSURANCE AUTHORIZATION FOR VIVO 65. LUCERO EXPECTED AUTHORIZATION YESTERDAY, SHE CALLED YESTERDAY AND WAS TOLD SHE WOULD HAVE IT BY 4:30 YESTERDAY AND WHEN SHE CALLED THIS MORNING, THEY TOLD HER THEY WOULD MAKE DECISION BY 8:30AM. LUCERO WILL CALL AGAIN AND WE ARE STILL WAITING INSURANCE AUTHORIZATION FOR MACHINE. CM ADVISED LUCERO THAT WE ARE WAITING ON AUTHORIZATION AND DELIVERY OF MACHINE FOR HOSPITAL DISCHARGE TODAY. MARYA NOTIFIED [facility] OF DISCHARGE TODAY IF THE VIVO 65 MACHINE IS APPROVED AND DELIVERED, . CM FAXED DISCHARGE INFORMATION TO [facility] AT [phone]. WHEN AND IF VIVO IS AUTHORIZED BY INSURANCE AND DELIVERED TO PT, THE [facility] WILL ACCEPT PT ON LESS THAN 5 LITERS OF OXYGEN. FOR DISCHARGE TO THE [facility] NURSING AND REHAB, FAX DISCHARGE INFORMATION TO THE [facility] AT [phone]; NURSE REPORT TO BE CALLED TO THE [facility] AT [phone]. [facility] TO ARRANGE VAN TRANSPORATION. KIMBERLEY Puentes MANAGEMENT DCP- Discharge Planning Updated by [id number]: Leonor Mireles on 04/28/19 11:[address] PLACED A CALL TO PATIENTS [facility] INPATIENT CASEMANAGER, JEREMIAS HOUSTON RN ([phone]) AND REACHED HER VOICEMAIL. LEFT MESSAGE EXPLAINING THAT WE HAVE RECEIVED CONFIRMATION FROM THE [facility] THAT THE PATIENT HAS AUTHORIZATION FOR SNF, BUT SHE WAS GOING TO NEED THE VIVO 65 BEFORE DISCHARGE AND THE Local [employer]ift COMPANY IS STATING THAT THEY STILL DO NOT HAVE AUTH. ASKED IF SHE COULD LOOK INTO THIS FOR US TO SEE IF THERE IS ANY INFORMATION MISSING OR ANYTHING WE COULD DO FROM A HOSPITAL STANDPOINT THAT WOULD EXPEDITE THIS. WILL WAIT FOR A RETURN CALL. DCP- Discharge Planning Updated by [id number]: Chidi Goncalves on 04/27/19 3:[address] Patient Name: DELLA BRISENO Encounter No: [id number] : 1950 Primary Insurance: [facility] MEDIC[facility] SOLUTIONS Anticipated DC Date: Planned Disposition: Penitentiary Facility External Planned Provider: [facility] NURSING AND REH[facility], MEDICARE REHAB BED DCP follow-up note: CM RECEIVED CALL FROM MARIN OF THE [facility], THEY WILL ACCEPT PT FOR REHAB AND CAN ACCEPT ON 5 LITERS OF OXYGEN OR LESS. THEY HAVE INSURANCE AUTHORIZATION. PT WILL NEED VIVO 65 PRIOR TO REHAB OR IF THEY NEED TO ARRANGE BIPAP, THEY WILL NEED TO ORDER IT. CM ADVISED VIVO HAS BEEN ORDERED THROUGH [employer] AND WE ARE WAITING INSURANCE AUTHORIZATION FOR MACHINE. WHEN AND IF VIVO IS AUTHORIZED BY INSURANCE AND DELIVERED TO PT, [facility] WILL ACCEPT PT ON LESS THAN 5 LITERS OF OXYGEN. FOR DISCHARGE TO [facility] NURSING [facility] REH[facility], FAX DISCHARGE INFORMATION TO [facility] AT [phone]; NURSE REPORT TO BE CALLED TO [facility] AT [phone]. [facility] TO ARRANGE VAN TRANSPORATION. Chidi Goncalves, CASE SUSU DCP- Discharge Planning Updated by [id number]: Chidi Goncalves on 04/27/19 7:[address] Patient Name: DELLA RAOSWATHI Encounter No: [id number] : 1950 Primary Insurance: [facility] MEDIC[facility] SOLUTIONS Anticipated DC Date: Planned Disposition: Penitentiary Facility External Planned Provider: [facility] NURSING AND REH[facility], MEDICARE REHAB BED DCP follow-up note: CM CONTACTED IMAN OF THE [facility], , NOTIFIED OF REFERRAL FOR REHAB SERVICES. CM FAXED REFERRAL TO [facility] VIA [facility] AT [phone]. CM WAITING MEDICAL STABILITY FOR REHAB. CM WAITING INSURANCE APPROVAL OF VIVO 65 MACHINE THROUGH [employer]. CM WAITING ADMISSION DETERMINATION FROM [facility] INSURANCE AUTHORIZATION FROM PT'S INSURANCE FOR PRISON REHAB. Chidi Goncalves, CASE MANAGEMENT DCP- Discharge Planning Updated by [id number]: Chidi Goncalves on 04/26/19 3:[address] Patient Name: DELLA BRISENO Encounter No: [id number] : 1950 Primary Insurance: [facility] MEDIC[facility] SOLUTIONS Anticipated DC Date: Planned Disposition: Penitentiary Facility External Planned Provider: [facility] NURSING AND REHAB, MEDICARE REHAB BED DCP follow-up note: CM MET WITH PT AND DAUGHTER IN ROOM AT PT'S REQUEST TO DISCUSS DISCHARGE PLANNING WITH DAUGHTER. DAUGHTER REPORTS RECEIVING LIST OF NURSING REHABS, HAS DISCUSSED WITH PT AND THEY WANT THE [facility] FOR REHAB IT IS CLOSE TO THEIR HOMES. PT SIGNED CONSENT FOR THE [facility]. CM EXPLAINED REFERRAL TO [employer] FOR VIVO 65 NIPPV AND WAITING INSURANCE AUTHORIZATION TO SEE IF THE MACHINE CAN BE APPROVED AND DELIVERED TO HOSPITAL. CM WAITING INSURANCE APPROVAL OF VIVO 65 MACHINE THROUGH [employer]. CM TO FAX REFERRAL FOR REHAB [facility]. Chidi Goncalves, CASE MANAGEMENT DCP- Discharge Planning Updated by [id number]: Chidi Goncalves on 04/26/19 1:[address] Patient Name: DELLA BRISENO Encounter No: [id number] : 1950 Primary Insurance: [facility] MEDIC[facility] SOLUTIONS Anticipated DC Date: Planned Disposition: Penitentiary Facility External Planned Provider: TO BE DETERMINED DCP follow-up note: CM RECEIVED CALL FROM CHANELLE OF INPATIENT REHAB WHO INFORMED CM THAT PT'S INSURANCE DECLINED INPATIENT REHAB AND PROVIDED PEER TO PEER INSTRUCTIONS IF THE PHYSICIAN WISHES TO APPEAL. CM NOTIFIED DAVID BRAXTON AND DR. MARCELINO, BOTH AGREE FOR PRISON REHAB. CM MET WITH PT IN ROOM AND DISCUSSED INSURANCE DECLINATION OF INPATIENT REHAB, DISCUSSED AVAILABILITY OF PRISON REHAB AND PROVIDERS. PT REPORTS STILL HAVING INFORMATION ON PROVIDERS GIVEN TO HER BY CM AND PT'S DAUGHTER TOOK IT WITH HER. PT STATES SHE WANTS TO TALK TO HER DAUGHTER WHO WILL BE HERE TODAY SOMETIME AND PT WILL LET CM KNOW WHICH FACILITIES THEY CHOOSE. CHOICE FORM WITH CM CONTACT INFORMATION LEFT WITH PT IN ROOM. CM DISCUSSED VIVO 65 ORDER, PT WOULD LIKE CM TO CALL [facility] FIRST AND HAS NO PREFERENCE ON PROVIDER IF [facility] CANNOT PROVIDE THE MACHINE. IMPORTANT MESSAGE FROM MEDICARE PROVIDED AND EXPLAINED. CM REVIEWED CHART AND ORDER FOR VIVO 65 FOR DISHCHARGE. CM CALLED AND SPOKE TO GERALD OF [facility], THEY DO NOT PROVIDE VIVO 65, SUGGESTED TRILOGY OR ASTRAL MACHINES. CM CALLED [employer], , SPOKE TO LUCERO WHO INFORMED CM THAT THEY DO PROVIDE THE VIVO 65. CM FAXED ORDER AND SUPPORTING DOCUMENTS TO [employer] AT [phone]. CM WAITING INSURANCE APPROVAL OF VIVO 65 MACHINE THROUGH [employer]. CM WAITING PT AND FAMILY DECISION REGARDING PRISON FACILITY SELECTION. CM WAITING PT'S OXYGEN LEVEL TO GET DOWN TO ACCEPTABLE LEVEL FOR DISCHARGE TO REHAB. Chidi Goncalves, CASE MANAGEMENT DCP- Discharge Planning Updated by [id number]: Chidi Goncalves on 04/24/19 4:[address] Patient Name: DELLA BRISENO Encounter No: [id number] : 1950 Primary Insurance: [facility] MEDIC[facility] SOLUTIONS Anticipated DC Date: Planned Disposition: Inpatient Rehab External Planned Provider: [facility] INPATIENT REHAB DCP follow-up note: CM RECEIVED REQUEST TO SPEAK TO PT IN ROOM. BEDSIDE NURSE DOES NOT KNOW WHY PT WANTS TO SEE CM, BUT PT HAS REFUSED ALL LABS THIS MORNING. CM MET WITH PT IN ROOM. PT INFORMED CM THAT DR. COBIAN TOLD HER SHE IS GOING TO REHAB AT [facility] AND WANTED TO KNOW PROGRESS OF THIS. CM EXPLAINED THAT NO ORDERS HAD BEEN ENTERED FOR INPATIENT REHAB PRESCREENING OF YET AND THAT PT'S INSURANCE WOULD HAVE TO APPROVE REHAB. CM EXPLAINED THAT PT WOULD NEED TO BE ABLE TO TOLERATE THREE HOURS OF PROGRESSIVE THERAPY PER DAY. PT STATES SHE CAN DO IT. PT'S PLAN AFTER REHAB IS TO DISCHARGE HOME WHERE SHE WAS INDEPENDENT IN HER CARE PRIOR TO GETTING SICK. CM DISCUSSED POSSIBLITY OF INSURANCE DECLINING INPATIENT, DISCUSSED AVAILABLE PRISON FACLITIES, PROVIDED LISTING. PT ASKED CM TO CALL HER DAUGHTER, PATRICIA. CM CALLED PATRICIA, , LEFT MESSAGE ASKING FOR RETURN CALL. IMPORTANT MESSAGE FROM MEDICARE PROVIDED AND EXPLAINED. CM NOTIFIED CHANELLE OF INPATIENT REHAB, DR. MARCELINO AND DAVID BRAXTON IN MULTIDISCIPLINARY TEAM MEETING. ORDER FOR INPATIENT REHAB PRESCREENING OBTAINED. CM WAITING ADMISSION DETERMINATION FROM INPATIENT REHAB AT [facility] INSURANCE AUTHORIZATION FOR SERVICES. Chidi Goncalves, CASE MANAGEMENT DCP- Discharge Planning Updated by [id number]: Tierney Shukla on 04/22/19 2:[address] CM RECEIVED AN ORDER TO ARRANGE FOR A VIVO 65 THRU [facility]. PATIENT REMAINS ON 9/L OXYGEN. SHE HAS [facility] MEDICARE SOLUTIONS IJNSURANCE PROVIDER. WILL NEED TO CONTACT THE APPROPRIATE [facility] STAFF ON WEDNESDAY AND HER PROVIDER TO REQUEST THIS UNIT. CM TO FOLLOW. DCP- Discharge Planning Updated by [id number]: Nora Berrios on 04/12/19 10:[address] Patient Name: DELLA BRISENO Admission Status: ER Accout number: [id number] Admission Date: 04-10-2019 : 1950 Admission Diagnosis: Attending: AC MARCELINO Current LOS: 2 Anticipated DC Date: Planned Disposition: Home Primary Insurance: [facility] MEDIC[facility] SOLUTIONS Discharge Planning Comments: CM met with patient to complete initial dc planning assessment. CM educated patient on the CM role and verbal consent given by patient to complete assessment. Patient lives at home with her , daughter and family where she is for the most part total care. Daughter Lali states that patient at times could use walker with assist to go to restroom but would need to rest and catch her breath. At discharge patient plans to return home and feels this is a safe discharge. CM gave Lali information on some resources to help within the home. Lali stated that her father has just started having radiation treatments and she is having a difficult time taking care of both of them. CM discussed availability of home health, rehab services, and medical equipment. Lali also stated that they are suppose to be getting a hospital bed d/t her mother sliding out of the bed at home. Family will transport home. Patient has a nebulizer and home o2 ( [facility] patient ) Patient denied known discharge needs at this time. CM will continue to follow and will assist as needed with dc plans/needs. Technology Auditor: Nora Berrios DCP- Discharge Planning Updated by [id number]: Nora Berrios on 04/11/19 5:[address] CM wasn't able to speak to patient regarding discharge planning d/t her having to wear BiPAP continuously. No family available. CM will continue to follow and assist as needed with discharge planning / needs. DCPIA - Discharge Planning Initial Assessment Updated by [id number]: Nora Berrios on 04/12/19 11:20 am * Is the patient Alert and Oriented? Yes * How many steps to enter\exit or inside your home? * PCP CECILIA RICO HAS BEEN SEEING HOUSE CALLS FOR THE LAST SEVERAL YEARS NOT GOING TO CLINIC * [facility] [address] * Preadmission Environment Home with Family * ADLs Total Dependent * Other Equipment HOME / PORTABLE 02, NEBULIZER, 02 MONITOR, GLUCOMETER, HOSPITAL BED PENDING * List name and contact numbers for known caregivers / representatives who currently or will assist patient after discharge: LALI BRISENO - DAUGHTER- [phone] * Verbal permission to speak to the caregivers and representatives has been obtained from the patient. Yes * Please name any agencies selected above. [facility], [employer] [facility] * Additional services required to return to the preadmission environment? No * Can the patient safely return to the preadmission environment? Yes * Has this patient been hospitalized within the prior 30 days at any hospital? No Coverage Notice Reviewer: [id number] Goncalves Notice Issued Date-Time: 04/24/2019 9:50 Notice Type: IM Discharge Notice Notice Delivered To: Patient Relationship to Patient: Elevated Work Platform Operator Name: Delivery Method: HAND - Hand Delivered Rosa Isela Days: Prior Verbal Notification: Recipient Understood Notice: Yes Recipient Signature: Yes Med Rec Note Co-signed by Attending: Coverage Notice Comment: Reviewer: THAD Goncalves Notice Issued Date-Time: 04/26/2019 9:35 Notice Type: Patient Choice Letter Notice Delivered To: Patient Relationship to Patient: Elevated Work Platform Operator Name: Delivery Method: HAND - Hand Delivered Rosa Isela Days: Prior Verbal Notification: Recipient Understood Notice: Yes Recipient Signature: Yes Med Rec Note Co-signed by Attending: Coverage Notice Comment: [facility] OR NO MEDICAL EQUIPMENT PROVIDER PREFERENCE. Reviewer: [id number] Jan Goncalves Notice Issued Date-Time: 04/26/2019 9:35 Notice Type: IM Discharge Notice Notice Delivered To: Patient Relationship to Patient: Elevated Work Platform Operator Name: Delivery Method: HAND - Hand Delivered Rosa Isela Days: Prior Verbal Notification: Recipient Understood Notice: Yes Recipient Signature: Yes Med Rec Note Co-signed by Attending: Coverage Notice Comment: Reviewer: [id number] Goncalves Notice Issued Date-Time: 04/26/2019 16:35 Notice Type: Patient Choice Letter Notice Delivered To: Patient Relationship to Patient: Elevated Work Platform Operator Name: Delivery Method: HAND - Hand Delivered Rosa Isela Days: Prior Verbal Notification: Recipient Understood Notice: Yes Recipient Signature: Yes Med Rec Note Co-signed by Attending: Coverage Notice Comment: TYSHAWN Galdamez DP export: 04/28/19 11:09 a Patient Name: DELLA BRISENO Page [id number] at 1225 All edits/amendments must be made on the electronic document DICTATION DATE: 04/28/19 1224 LUMP ROLLER: MARCOS 04/28/19 1224 RPT#: [id number] DC DATE: STATUS: ADM IN [facility] [address] [place] [address] END OF REPORT
[2019-04-28 13:45] VITALS: BP 157/76
--- NOTE | 2019-04-28 14:36 | NUR ---
OT NOTE: PT PERFORMED VERY WELL TODAY. ABLE TO PERFORM BED MOB WITH LESS ASSIST TODAY. PT ABLE TO SLIDE LEGS TOWARD EOB WITHOUT ASSIST; ABLE TO PUSH UP TO SITTING POSITION WITH LESS ASSIST. SIT TO STAND WITH MOD ASSIST X 3 TRIALS. ON THE THIRD TRIAL, PT WAS ABLE TO STAND FOR GREATER THAN 1 MIN. RETURNED TO SUPINE WITH MAX ASSIST. POSITIONED IN BED. GERALD MARTINES, OTR/L
--- NOTE | 2019-04-28 14:47 | NUR ---
I have reviewed this patient and I concur with the Shift Assessment completed by the Licensed Practical Nurse today this shift.
--- NOTE | 2019-04-28 16:04 | MORECARE ---
CASE MANAGEMENT DISCHARGE SUMMARY PATIENT: DELLA BRISENO UNIT: [id number] ADM DATE: 04/10/19 AGE: 68 : [birth year] SEX: F ROOM/BED: D.6914 AUTHOR: ZARIA WHITTEN PHYSICIAN: REFERRING PHYSICIAN: AC MARCELINO MD DATE OF SERVICE: 04/28/19 Discharge Plan Patient Name: DELLA BRISENO Facility: [facility]:[place] : 1950 Planned Disposition: [facility]sp Facility Anticipated Discharge Date: 04/28/19 Discharge Date: Expected LOS: 18 Initial Reviewer: [email or web address] Initial Review Date: 04/12/2019 Generated: 04/28/19 5:04 pm Comments DCP- Discharge Planning Updated by [id number]: Chidi Goncalves on 04/28/19 2:[address] Patient Name: DELLA BRISENO Encounter No: [id number] : 1950 Primary Insurance: [facility] [employer] Anticipated DC Date: 04-28-2019 Planned Disposition: [facility] Facility External Planned Provider: [facility], MEDICARE REHAB BED DCP follow-up note: STEPHANI ARRIVED WITH [employer], TEACHER VOCAL AND WEEKEND NURSING INSULATION BOARD BACK TENDER OF THE [facility] ARRIVED, TRAINING PROVIDED TO PT AND STAFF ON OPERATION OF VIVO 65. THE [facility] WILL ACCEPT TODAY, WILL SCHOOL TRAFFIC SUPERVISOR AT 4PM. PT HAS NOTIFIED FAMILY, DENIES FURHTER DISCHARGE NEEDS. PHOTO MACHINE OPERATOR NURSE NOTIFIED. NURSE REPORT TO BE CALLED TO THE [facility]. [phone]. THE [facility] TO SCHOOL TRAFFIC SUPERVISOR PT AT 4PM TODAY. Chidi Goncalves, CASE MANAGEMENT DCP- Discharge Planning Updated by [id number]: Chidi Goncalves on 04/28/19 11:[address] Patient Name: DELLA BRISENO Admission Status: ER Accout number: [id number] Admission Date: 04-10-2019 : 1950 Admission Diagnosis:UNSPECIFIED ATRIAL FLUTTER Attending: AC MARCELINO Current LOS: 18 Anticipated DC Date: Planned Disposition: [facility] Facility Primary Insurance: [facility] [employer] [employer] PLANNED EXTERAL PROVIDER: [facility], MEDICARE REHAB BED DCP follow-up note: CM CALLED LUCERO AT [facility], , ASKED ABOUT INSURANCE AUTHORIZATION FOR VIVO 65. LUCERO EXPECTED AUTHORIZATION YESTERDAY, SHE CALLED YESTERDAY AND WAS TOLD SHE WOULD HAVE IT BY 4:30 YESTERDAY AND WHEN SHE CALLED THIS MORNING, THEY TOLD HER THEY WOULD MAKE DECISION BY 8:30AM. LUCERO WILL CALL AGAIN AND WE ARE STILL WAITING INSURANCE AUTHORIZATION FOR MACHINE. CM ADVISED LUCERO THAT WE ARE WAITING ON AUTHORIZATION AND DELIVERY OF MACHINE FOR HOSPITAL DISCHARGE TODAY. CM NOTIFIED [facility] OF DISCHARGE TODAY IF THE VIVO 65 MACHINE IS APPROVED AND DELIVERED, . CM FAXED DISCHARGE INFORMATION TO [facility] AT [phone]. WHEN AND IF VIVO IS AUTHORIZED BY INSURANCE AND DELIVERED TO PT, THE [facility] WILL ACCEPT PT ON LESS THAN 5 LITERS OF OXYGEN. FOR DISCHARGE TO THE [facility] NURSING AND REHAB, FAX DISCHARGE INFORMATION TO THE [facility] AT [phone]; NURSE REPORT TO BE CALLED TO THE [facility] AT [phone]. THE [facility] TO ARRANGE VAN TRANSPORATION. Chidi Goncalves, CASE MANAGEMENT DCP- Discharge Planning Updated by [id number]: Leonor Mireles on 04/28/19 11:[address] PLACED A CALL TO PATIENTS [facility] INPATIENT CASEMANAGERJEREMIAS RN ([phone]) AND REACHED HER VOICEMAIL. LEFT MESSAGE EXPLAINING THAT WE HAVE RECEIVED CONFIRMATION FROM THE PRISON THAT THE PATIENT HAS AUTHORIZATION FOR SNF, BUT SHE WAS GOING TO NEED THE VIVO 65 BEFORE DISCHARGE AND THE [employer] IS STATING THAT THEY STILL DO NOT HAVE AUTH. ASKED IF SHE COULD LOOK INTO THIS FOR US TO SEE IF THERE IS ANY INFORMATION MISSING OR ANYTHING WE COULD DO FROM A HOSPITAL STANDPOINT THAT WOULD EXPEDITE THIS. WILL WAIT FOR A RETURN CALL. DCP- Discharge Planning Updated by [id number]: Chidi Goncalves on 04/27/19 3:[address] Patient Name: DELLA BRISENO Encounter No: [id number] : 1950 Primary Insurance: [facility] [employer] [employer] Anticipated DC Date: Planned Disposition: [facility]sp Facility External Planned Provider: [facility], MEDICARE REHAB BED DCP follow-up note: CM RECEIVED CALL FROM MARIN OF THE [facility], THEY WILL ACCEPT PT FOR REHAB AND CAN ACCEPT ON 5 LITERS OF OXYGEN OR LESS. THEY HAVE INSURANCE AUTHORIZATION. PT WILL NEED VIVO 65 PRIOR TO REHAB OR IF THEY NEED TO ARRANGE BIPAP, THEY WILL NEED TO ORDER IT. CM ADVISED VIVO HAS BEEN ORDERED THROUGH [employer] AND WE ARE WAITING INSURANCE AUTHORIZATION FOR MACHINE. WHEN AND IF VIVO IS AUTHORIZED BY INSURANCE AND DELIVERED TO PT, THE [facility] WILL ACCEPT PT ON LESS THAN 5 LITERS OF OXYGEN. FOR DISCHARGE TO THE [facility] NURSING AND REHAB, FAX DISCHARGE INFORMATION TO THE [facility] AT [phone]; NURSE REPORT TO BE CALLED TO THE [facility] AT [phone]. THE [facility] TO ARRANGE VAN TRANSPORATION. Chidi Goncalves CASE MANAGEMENT DCP- Discharge Planning Updated by [id number]: Chidi Goncalves on 04/27/19 7:[address] Patient Name: DELLA BRISENO Encounter No: [id number] : 1950 Primary Insurance: [facility] [employer] Anticipated DC Date: Planned Disposition: [facility]sp Facility External Planned Provider: [facility], MEDICARE REHAB BED DCP follow-up note: CM CONTACTED [facility], , NOTIFIED OF REFERRAL FOR REHAB SERVICES. CM FAXED REFERRAL TO THE [facility] VIA [facility] AT [phone]. CM WAITING MEDICAL STABILITY FOR REHAB. CM WAITING INSURANCE APPROVAL OF VIVO 65 MACHINE THROUGH [employer]. CM WAITING ADMISSION DETERMINATION FROM [facility] INSURANCE AUTHORIZATION FROM PT'S INSURANCE FOR RESIDENTIAL REHAB. Chidi Goncalves CASE MANAGEMENT DCP- Discharge Planning Updated by [id number]: Chidi Goncalves on 04/26/19 3:[address] Patient Name: DELLA BRISENO Encounter No: [id number] : 1950 Primary Insurance: [facility] [employer] Anticipated DC Date: Planned Disposition: [facility]sp Facility External Planned Provider: [facility], MEDICARE REHAB BED DCP follow-up note: CM MET WITH PT AND DAUGHTER IN ROOM AT PT'S REQUEST TO DISCUSS DISCHARGE PLANNING WITH DAUGHTER. DAUGHTER REPORTS RECEIVING LIST OF NURSING REHABS, HAS DISCUSSED WITH PT AND THEY WANT THE [facility] FOR REHAB IT IS CLOSE TO THEIR HOMES. PT SIGNED CONSENT FOR THE [facility]. CM EXPLAINED REFERRAL TO [facility] FOR VIVO 65 NIPPV AND WAITING INSURANCE AUTHORIZATION TO SEE IF THE MACHINE CAN BE APPROVED AND DELIVERED TO HOSPITAL. CM WAITING INSURANCE APPROVAL OF VIVO 65 MACHINE THROUGH [facility]. CM TO FAX REFERRAL FOR REHAB TO THE [facility] NURSING AND REHAB SOON POSSIBLE. Chidi Goncalves, CASE MANAGEMENT DCP- Discharge Planning Updated by [id number]: Chidi Goncalves on 04/26/19 1:[address] Patient Name: DELLA BRISENO Encounter No: [id number] : 1950 Primary Insurance: [facility] [employer] Anticipated DC Date: Planned Disposition: [facility]sp Facility External Planned Provider: TO BE DETERMINED DCP follow-up note: CM RECEIVED CALL FROM CHANELLE OF INPATIENT REHAB WHO INFORMED CM THAT PT'S INSURANCE DECLINED INPATIENT REHAB AND PROVIDED PEER TO PEER INSTRUCTIONS IF THE PHYSICIAN WISHES TO APPEAL. CM NOTIFIED DAVID BRAXTON AND DR. MARCELINO, BOTH AGREE FOR RESIDENTIAL REHAB. CM MET WITH PT IN ROOM AND DISCUSSED INSURANCE DECLINATION OF INPATIENT REHAB, DISCUSSED AVAILABILITY OF RESIDENTIAL REHAB AND PROVIDERS. PT REPORTS STILL HAVING INFORMATION ON PROVIDERS GIVEN TO HER BY CM AND PT'S DAUGHTER TOOK IT WITH HER. PT STATES SHE WANTS TO TALK TO HER DAUGHTER WHO WILL BE HERE TODAY SOMETIME AND PT WILL LET CM KNOW WHICH FACILITIES THEY CHOOSE. CHOICE FORM WITH CM CONTACT INFORMATION LEFT WITH PT IN ROOM. CM DISCUSSED VIVO 65 ORDER, PT WOULD LIKE CM TO CALL [facility] FIRST AND HAS NO PREFERENCE ON PROVIDER IF [facility] CANNOT PROVIDE THE MACHINE. IMPORTANT MESSAGE FROM MEDICARE PROVIDED AND EXPLAINED. CM REVIEWED CHART AND ORDER FOR VIVO 65 FOR DISHCHARGE. CM CALLED AND SPOKE TO GERALD OF [facility], THEY DO NOT PROVIDE VIVO 65, SUGGESTED TRILOGY OR ASTRAL MACHINES. CM CALLED [employer], , SPOKE TO LUCERO WHO INFORMED CM THAT THEY DO PROVIDE THE VIVO 65. CM FAXED ORDER AND SUPPORTING DOCUMENTS TO [employer] AT [phone]. CM WAITING INSURANCE APPROVAL OF VIVO 65 MACHINE THROUGH [employer]. CM WAITING PT AND FAMILY DECISION REGARDING RESIDENTIAL FACILITY SELECTION. CM WAITING PT'S OXYGEN LEVEL TO GET DOWN TO ACCEPTABLE LEVEL FOR DISCHARGE TO REHAB. Chidi Goncalves, CASE MANAGEMENT DCP- Discharge Planning Updated by [id number]: Chidi Goncalves on 04/24/19 4:[address] Patient Name: DELLA BRISENO Encounter No: [id number] : 1950 Primary Insurance: [facility] [employer] Anticipated DC Date: Planned Disposition: Inpatient Rehab External Planned Provider: [facility] INPATIENT REHAB DCP follow-up note: CM RECEIVED REQUEST TO SPEAK TO PT IN ROOM. BEDSIDE NURSE DOES NOT KNOW WHY PT WANTS TO SEE CM, BUT PT HAS REFUSED ALL LABS THIS MORNING. CM MET WITH PT IN ROOM. PT INFORMED CM THAT DR. COBIAN TOLD HER SHE IS GOING TO REHAB AT [facility] AND WANTED TO KNOW PROGRESS OF THIS. CM EXPLAINED THAT NO ORDERS HAD BEEN ENTERED FOR INPATIENT REHAB PRESCREENING OF YET AND THAT PT'S INSURANCE WOULD HAVE TO APPROVE REHAB. CM EXPLAINED THAT PT WOULD NEED TO BE ABLE TO TOLERATE THREE HOURS OF PROGRESSIVE THERAPY PER DAY. PT STATES SHE CAN DO IT. PT'S PLAN AFTER REHAB IS TO DISCHARGE HOME WHERE SHE WAS INDEPENDENT IN HER CARE PRIOR TO GETTING SICK. CM DISCUSSED POSSIBLITY OF INSURANCE DECLINING INPATIENT, DISCUSSED AVAILABLE RESIDENTIAL FACLITIES, PROVIDED LISTING. PT ASKED CM TO CALL HER DAUGHTER, PATRICIA. CM CALLED PATRICIA, , LEFT MESSAGE ASKING FOR RETURN CALL. IMPORTANT MESSAGE FROM MEDICARE PROVIDED AND EXPLAINED. CM NOTIFIED CHANELLE OF INPATIENT REHAB, DR. MARCELINO AND DAVID BRAXTON IN MULTIDISCIPLINARY TEAM MEETING. ORDER FOR INPATIENT REHAB PRESCREENING OBTAINED. CM WAITING ADMISSION DETERMINATION FROM INPATIENT REHAB AT [facility]URANCE AUTHORIZATION FOR SERVICES. Chidi Goncalves, CASE MANAGEMENT DCP- Discharge Planning Updated by [id number]: Tierney Shukla on 04/22/19 2:[address] CM RECEIVED AN ORDER TO ARRANGE FOR A VIVO 65 THRU [employer] [place]. PATIENT REMAINS ON 9/L OXYGEN. SHE HAS [facility] [employer] [employer] IJNSURANCE PROVIDER. WILL NEED TO CONTACT THE APPROPRIATE [facility] STAFF ON WEDNESDAY AND HER PROVIDER TO REQUEST THIS UNIT. CM TO FOLLOW. DCP- Discharge Planning Updated by [id number]: Nora Berrios on 04/12/19 10:[address] Patient Name: DELLA BRISENO Admission Status: ER Accout number: [id number] Admission Date: 04-10-2019 : 1950 Admission Diagnosis: Attending: AC MARCELINO Current LOS: 2 Anticipated DC Date: Planned Disposition: Home Primary Insurance: [facility] [employer] [employer] Discharge Planning Comments: CM met with patient to complete initial dc planning assessment. CM educated patient on the CM role and verbal consent given by patient to complete assessment. Patient lives at home with her , daughter and family where she is for the most part total care. Daughter Lali states that patient at times could use walker with assist to go to restroom but would need to rest and catch her breath. At discharge patient plans to return home and feels this is a safe discharge. CM gave Lali information on some resources to help within the home. Lali stated that her father has just started having radiation treatments and she is having a difficult time taking care of both of them. CM discussed availability of home health, rehab services, and medical equipment. Lali also stated that they are suppose to be getting a hospital bed d/t her mother sliding out of the bed at home. Family will transport home. Patient has a nebulizer and home o2 ( [place] home patient ) Patient denied known discharge needs at this time. CM will continue to follow and will assist as needed with dc plans/needs. [employer]: Nora Berrios DCP- Discharge Planning Updated by [id number]: Nora Berrios on 04/11/19 5:[address] CM wasn't able to speak to patient regarding discharge planning d/t her having to wear BiPAP continuously. No family available. CM will continue to follow and assist as needed with discharge planning / needs. DCPIA - Discharge Planning Initial Assessment Updated by [id number]: Nora Berrios on 04/12/19 11:20 am * Is the patient Alert and Oriented? Yes * How many steps to enter\exit or inside your home? * PCP CECILIA RICO HAS BEEN SEEING HOUSE CALLS FOR THE LAST SEVERAL YEARS NOT GOING TO CLINIC * [facility] [address] * Preadmission Environment Home with Family * ADLs Total Dependent * Other Equipment HOME / PORTABLE 02, NEBULIZER, 02 MONITOR, GLUCOMETER, HOSPITAL BED PENDING * List name and contact numbers for known caregivers / representatives who currently or will assist patient after discharge: LALI BRISENO - DAUGHTER- [phone] * Verbal permission to speak to the caregivers and representatives has been obtained from the patient. Yes * Please name any agencies selected above. [facility], [employer] [facility] * Additional services required to return to the preadmission environment? No * Can the patient safely return to the preadmission environment? Yes * Has this patient been hospitalized within the prior 30 days at any hospital? No Coverage Notice Reviewer: THAD Goncalves Notice Issued Date-Time: 04/24/2019 9:50 Notice Type: IM Discharge Notice Notice Delivered To: Patient Relationship to Patient: Right Of Way Clearer Name: Delivery Method: HAND - Hand Delivered Rosa Isela Days: Prior Verbal Notification: Recipient Understood Notice: Yes Recipient Signature: Yes Med Rec Note Co-signed by Attending: Coverage Notice Comment: Reviewer: THAD Goncalves Notice Issued Date-Time: 04/26/2019 9:35 Notice Type: Patient Choice Letter Notice Delivered To: Patient Relationship to Patient: Right Of Way Clearer Name: Delivery Method: HAND - Hand Delivered Rosa Isela Days: Prior Verbal Notification: Recipient Understood Notice: Yes Recipient Signature: Yes Med Rec Note Co-signed by Attending: Coverage Notice Comment[facility] PROVIDER PREFERENCE. Reviewer: THAD Goncalves Notice Issued Date-Time: 04/26/2019 9:35 Notice Type: IM Discharge Notice Notice Delivered To: Patient Relationship to Patient: Right Of Way Clearer Name: Delivery Method: HAND - Hand Delivered Rosa Isela Days: Prior Verbal Notification: Recipient Understood Notice: Yes Recipient Signature: Yes Med Rec Note Co-signed by Attending: Coverage Notice Comment: Reviewer: THAD Goncalves Notice Issued Date-Time: 04/26/2019 16:35 Notice Type: Patient Choice Letter Notice Delivered To: Patient Relationship to Patient: Right Of Way Clearer Name: Delivery Method: HAND - Hand Delivered Rosa Isela Days: Prior Verbal Notification: Recipient Understood Notice: Yes Recipient Signature: Yes Med Rec Note Co-signed by Attending: Coverage Notice Comment: [facility] Last DP export: 04/28/19 11:24 a Patient Name: DELLA BRISENO Page [id number] at 1604 All edits/amendments must be made on the electronic document DICTATION DATE: 04/28/19 1604 COMMUNICATION ANALYST: MARCOS 04/28/19 1604 RPT#: [id number] DC DATE: STATUS: ADM IN [facility] [address] [place] [address] END OF REPORT
--- NOTE | 2019-04-28 16:25 | NUR ---
PT DISCHARGED TO [facility] VIA [facility] TRANSPORTATION. MIDLINE REMOVED WITH CATHETER TIP FULLY INTACT. NO S/S OF HEMATOMA PRESENT. PT SIGNED PROPER DISCHARGE INSTRUCTIONS AND REMOVED ALL VALUABLES FROM THE ROOM ALONG WITH NEW BREATHING MACHINE. LEON LEFT IN PLACE FOR TRANSPORT.
== END 2019-04-28 16:26 | DRG 308 ==
LOC: D.ER 11:26 → D.M2 14:03 → D.CVICU 14:03 → D.M2 04-14 15:16
PROVIDERS: Emergency Medicine; Family Medicine; Family Medicine Adult Medicine; Internal Medicine Pulmonary Disease; ADMIT Internal Medicine Nephrology; ATTEND Internal Medicine Nephrology
PROC: 5A09457 Assistance with Respiratory Ventilation, 24-96 Consecutive Hours, Continuous Positive Airway Pressure (ICD-10-PCS; 2019-04-10)
PROC: 05HY33Z Insertion of Infusion Device into Upper Vein, Percutaneous Approach (ICD-10-PCS; principal; 2019-04-14)
DX: I48.92 Unspecified atrial flutter (principal); J18.1 Lobar pneumonia, unspecified organism; J96.22 Acute and chronic respiratory failure with hypercapnia; J96.21 Acute and chronic respiratory failure with hypoxia; N17.9 Acute kidney failure, unspecified; J44.1 Chronic obstructive pulmonary disease with (acute) exacerbation; J98.11 Atelectasis; Z66 Do not resuscitate; D64.9 Anemia, unspecified; K72.90 Hepatic failure, unspecified without coma; D50.9 Iron deficiency anemia, unspecified; Z99.81 Dependence on supplemental oxygen; E11.21 Type 2 diabetes mellitus with diabetic nephropathy; F41.9 Anxiety disorder, unspecified; G47.33 Obstructive sleep apnea (adult) (pediatric)